=== PATIENT | female | born 1930 | race Caucasian/White ===

== ENCOUNTER 2016-11-17 18:30 | Inpatient (IN) | payer OTHER, MEDICARE ==
[~2016-11-17] VITALS: Ht 162.6 cm; Wt 97.9 kg
[2016-11-17 18:47] VITALS: BP 152/70; PULSE 88; RESP 20; TEMP 98; O2SAT 94
[2016-11-17 18:49] VITALS: O2SAT 95
[2016-11-17] MEDS ORDERED: SODIUM CHLORIDE 0.9% FLUSH 10 ML FLUSH IVF PRN (19:00)
--- NOTE | 2016-11-17 19:22 | PD ---
HPI Chief Complaint: Fall Time Seen by Provider: 19:08 Travel History International Travel<30 days: No Contact w/Intl Traveler<30days: No Traveled to known affect area: No History of Present Illness HPI 86-year-old female came to the emergency room brought by EMS from an assisted living facility after experiencing a fall and unable to get up and ambulate because of left hip pain and deformity few hours ago. Patient doesn't seem to remember this or know what happened. Her son is here with her. He gave some of the additional history. Patient is awake however and hemodynamically stable. List of her medications was reviewed from the paperwork that was sent from the assisted living facility. [facility] Past Medical History Narrative Medical List of her past medical, surgical, social and family history was nursing note. Social History Tobacco Use: No Allergies-Medications (Allergen,Severity, Reaction): Coded Allergies: No Known Allergies (Unverified , 11/17/16) Comments Awaiting for the nurse to update the allergy list Reported Meds & Prescriptions Reported Meds & Active Scripts Active Reported Calcium 600+D 200 (Calcium Carbonate-Vitamin D) 600-200 Mg-Unit Tab 1 Tab PO BID Citalopram (Citalopram Hydrobromide) 20 Mg Tab 20 Mg PO DAILY Fluticasone Nasal [place] 50 Mcg/Act Naspr 50 Mcg EACH NARE BID 50 mcg/spray Memantine 10 Mg Tab 10 Mg PO BID Donepezil 10 Mg Tab 10 Mg PO HS Narrative Medication I reviewed the list of the medications sent from the assisted care facility. Awaiting for the nurse to do medical reconciliation. Review of Systems Except as stated in HPI: all other systems reviewed are Neg Physical Exam Narrative GENERAL: Awake, alert, elderly, dementia SKIN: Focused skin assessment warm/dry. HEAD: Atraumatic. Normocephalic. EYES: Left pupil is round and 1 mm nonreactive to light, right pupil is 3 mm and oval reactive to light. There is a lens glare to the light present from both pupils. Good finger counting from both eyes. No scleral icterus. No injection or drainage. ENT: No nasal bleeding or discharge. Mucous membranes pink and moist. NECK: Trachea midline. No JVD. CARDIOVASCULAR: Regular rate and rhythm. No murmur appreciated. RESPIRATORY: No accessory muscle use. Clear to auscultation. Breath sounds equal bilaterally. GASTROINTESTINAL: Abdomen soft, non-tender, nondistended. Hepatic and splenic margins not palpable. MUSCULOSKELETAL: No obvious deformities. No clubbing. No cyanosis. No edema. Left leg shortened and externally rotated NEUROLOGICAL: Awake and alert. Dementia. No obvious cranial nerve deficits. Motor grossly within normal limits. Normal speech. PSYCHIATRIC: Appropriate mood and affect; insight and judgment normal. Data Data Last Documented VS Vital Signs Date Time Temp Pulse Resp B/P Pulse Ox O2 Delivery O2 Flow Rate FiO2 11/17/16 19:51 94 21 157/72 96 Nasal Cannula 3 11/17/16 18:47 98.0 Orders Electrocardiogram (11/17/16 18:46) Complete Blood Count With Diff (11/17/16 18:46) Comprehensive Metabolic Panel (11/17/16 18:46) Prothrombin Time / Inr (Pt) (11/17/16 18:46) Act Partial Throm Time (Ptt) (11/17/16 18:46) Type And Screen (11/17/16 18:46) Chest, Single Ap (11/17/16 18:46) Femur (Ap & Lat/2vws) (11/17/16 18:46) Hip, Uni(Ap&Lat) W Ap Pelvis (11/17/16 18:46) Iv Access Insert/Monitor (11/17/16 18:46) Oximetry (11/17/16 18:46) Ecg Monitoring (11/17/16 18:46) Sodium Chloride 0.9% Flush (Ns Flush) (11/17/16 19:00) Ct Brain W/O Iv Contrast(Rout) (11/17/16 ) Sodium Chlor 0.9% 1000 Ml Inj (Ns 1000 M (11/17/16 20:03) Admit Order (Ed Use Only) (11/17/16 20:14) Labs Laboratory Tests Test 11/17/16 19:45 White Blood Count 13.2 TH/MM3 Red Blood Count 4.33 MIL/MM3 Hemoglobin 13.8 GM/DL Hematocrit 40.4 % Mean Corpuscular Volume 93.4 FL Mean Corpuscular Hemoglobin 31.9 PG Mean Corpuscular Hemoglobin 34.2 % Concent Red Cell Distribution Width 13.2 % Platelet Count 155 TH/MM3 Mean Platelet Volume 9.9 FL Neutrophils (%) (Auto) 88.0 % Lymphocytes (%) (Auto) 6.8 % Monocytes (%) (Auto) 4.3 % Eosinophils (%) (Auto) 0.6 % Basophils (%) (Auto) 0.3 % Neutrophils # (Auto) 11.6 TH/MM3 Lymphocytes # (Auto) 0.9 TH/MM3 Monocytes # (Auto) 0.6 TH/MM3 Eosinophils # (Auto) 0.1 TH/MM3 Basophils # (Auto) 0.0 TH/MM3 CBC Comment DIFF FINAL Differential Comment Prothrombin Time 11.2 SEC Prothromb Time International 1.0 RATIO Ratio Activated Partial 21.7 SEC Thromboplast Time Sodium Level 141 MEQ/L Potassium Level 3.6 MEQ/L Chloride Level 105 MEQ/L Carbon Dioxide Level 30.7 MEQ/L Anion Gap 5 MEQ/L Blood Urea Nitrogen 22 MG/DL Creatinine 0.79 MG/DL Estimat Glomerular Filtration 69 ML/MIN Rate Random Glucose 108 MG/DL Calcium Level 8.9 MG/DL Total Bilirubin 0.4 MG/DL Aspartate Amino Transf 21 U/L (AST/SGOT) Alanine Aminotransferase 21 U/L (ALT/SGPT) Alkaline Phosphatase 85 U/L Total Protein 7.0 GM/DL Albumin 3.2 GM/DL Blood Type O NEGATIVE Antibody Screen NEGATIVE Blood Bank Comment MDM Medical Decision Making Medical Screen Exam Complete: Yes Emergency Medical Condition: Yes Medical Record Reviewed: Yes Interpretation(s) Twelve-lead EKG was reviewed by me. Normal sinus rhythm, normal axis, nonspecific ST-T wave changes. Heart rate of 87 bpm. Differential Diagnosis Hip fracture, hip dislocation Narrative Course 7:57 PM x-ray of the left hip/femur shows an impacted femoral neck fracture. I spoke with Dr. Steele from orthopedics was the patient to be nothing by mouth after midnight and admit the patient under hospitalist service. Awaiting for the hospitalist to call back. 8:39 PM the x-ray of her chest was commented to have T6 compression fracture of indeterminate age. I rolled the patient with nurses help and palpated her spine. There was no point tenderness. Patient of course was uncomfortable from the movement given her fractured hip but definitely no point tenderness at the T5-T6 area. Her son said that she has had several falls in the past. At one time she had broken her wrist as well in the past. There is a possibility that the compression fracture could be old from one of these falls if there is indeed one. Procedures EKG Prior to Arrival: No Physician Communication Physician Communication Dr. Steele Diagnosis Primary Impression: Fall Qualified Code: W19.XXXA - Fall, initial encounter Additional Impression: Femoral neck fracture Qualified Code: S72.002A - Closed fracture of neck of left femur, initial encounter Admitting Information Admitting Physician Requests: Admit Scripts Calcium Carbonate-Vitamin D (Calcium 600+D 200)600-200 Mg-Unit Tab1 Tab PO BID 30 Days Ref 0 Prov:Denis Venegas 11/18/16 Cholecalciferol (Vitamin D3)2,000 Unit Cap2,000 Units PO DAILY #56 CAP Ref 0 Prov:Denis Venegas 11/18/16 Ergocalciferol 50,000 Unit Cap50,000 Units PO Q7D #56 CAP Prov:Denis Venegas 11/18/16 Rivaroxaban (Xarelto)10 Mg Tab10 Mg PO DAILY #14 TAB Ref 0 Prov:Denis Venegas 11/18/16 Hydrocodone-Acetaminophen ([place])7.5-325 mg Tab1 Tab PO Q4H PRN (PAIN) #60 TAB Ref 0 Prov:Denis Venegas 11/18/16 Pema Keane MD Nov 17, 2016 19:22
--- NOTE | 2016-11-17 19:30 | RADRPT ---
EXAM DATE/TIME: 11/17/2016 19:07 [facility] COMPARISON: No previous studies available for comparison. INDICATIONS : Trauma. Fall today. MEDICAL HISTORY : None. SURGICAL HISTORY : None. ENCOUNTER: Initial ACUITY: 1 day PAIN SCORE: Non-responsive. LOCATION: Bilateral chest FINDINGS: Lungs are clear. There is loss of vertebral body height at the expected location of T6, age indetermi anne. Aortic calcification. Borderline cardiomegaly. CONCLUSION: Presumed T6 compression deformity, age-indeterminate. Usman Fuentes MD on November 17, 2016 at 19:28 Board Certified Radiologist. This report was verified electronically.
--- NOTE | 2016-11-17 19:32 | RADRPT ---
EXAM DATE/TIME: 11/17/2016 19:02 [facility] COMPARISON: FEMUR LEFT (AP & LAT/2VWS), November 17, 2016, 19:05. INDICATIONS : Left hip pain after fall. MEDICAL HISTORY : None. SURGICAL HISTORY : None. ENCOUNTER: Initial ACUITY: 1 day PAIN SCORE: 10/10 LOCATION: Left hip. FINDINGS: The patient has decreased bone mineralization. There is a mildly displaced fracture through the left subcapital femoral neck. No other fractures are seen. CONCLUSION: Left proximal femur fracture. Usman Fuentes MD on November 17, 2016 at 19:29 Board Certified Radiologist. This report was verified electronically.
--- NOTE | 2016-11-17 19:36 | RADRPT ---
EXAM DATE/TIME: 11/17/2016 19:05 [facility] COMPARISON: HIP LEFT (AP&LAT 2/3VWS) W AP PELVIS, November 17, 2016, 19:02. INDICATIONS : Left hip pain after fall. MEDICAL HISTORY : None. SURGICAL HISTORY : None. ENCOUNTER: Initial ACUITY: 1 day PAIN SCORE: 10/10 LOCATION: Left hip. FINDINGS: There is a fracture of the left subcapital femoral neck. Femoral head osteophyte formation is seen. D ecreased bone density. CONCLUSION: Left femoral neck fracture. Usman Fuentes MD on November 17, 2016 at 19:34 Board Certified Radiologist. This report was verified electronically.
--- NOTE | 2016-11-17 19:39 | RADRPT ---
EXAM DATE/TIME: 11/17/2016 19:21 [facility] COMPARISON: No previous studies available for comparison. INDICATIONS : Trauma. Fall. RADIATION DOSE: 62.61 CTDIvol (mGy) MEDICAL HISTORY : None SURGICAL HISTORY : None. ENCOUNTER: Initial ACUITY: 1 day PAIN SCALE: 0/10 LOCATION: cranial TECHNIQUE: Multiple contiguous axial images were obtained of the head. Using automated exposure control and adj ustment of the mA and/or kV according to patient size, radiation dose was kept as low as reasonably a chievable to obtain optimal diagnostic quality images. FINDINGS: There is mild atrophy and moderate patchy white matter disease most likely related to chronic microva scular ischemic disease. No signs of acute infarct, hemorrhage or mass. No fractures. CONCLUSION: No acute disease. Usman Fuentes MD on November 17, 2016 at 19:37 Board Certified Radiologist. This report was verified electronically.
[2016-11-17 19:51] VITALS: BP 157/72; PULSE 94; RESP 21; O2SAT 96
[2016-11-17] MEDS ORDERED: SODIUM CHLOR 0.9% 1000 ML INJ 1,000 ML IV SCH (20:03)
[2016-11-17 20:28] LABS: AUTOMATED NEUTROPHIL # 11.6 TH/MM3 (1.8-7.7); BASOPHIL % 0.3 % (0.0-2.0); EOSINOPHIL # 0.1 TH/MM3 (0-0.4); EOSINOPHIL % 0.6 % (0.0-4.0); HEMATOCRIT 40.4 % (35.0-46.0); HEMO FLAGS DIFF FINAL; LYMPH % 6.8 % (9.0-44.0); LYMPHOCYTE # 0.9 TH/MM3 (1.0-4.8); MEAN CELL VOLUME 93.4 FL (80.0-100.0); MEAN CORPUSCULAR HEMOGLOBIN 31.9 PG (27.0-34.0); MEAN CORPUSCULAR HGB CONC 34.2 % (32.0-36.0); MONO % 4.3 % (0.0-8.0); PLATELET COUNT 155 TH/MM3 (150-450); RED BLOOD COUNT 4.33 MIL/MM3 (4.00-5.30); RED CELL DISTRIBUTION WIDTH 13.2 % (11.6-17.2); WHITE BLOOD COUNT 13.2 TH/MM3 (4.0-11.0)
[2016-11-17] MEDS ORDERED: ONDANSETRON HCL 4 MG/2 ML VIAL IVP PRN (20:30)
[2016-11-17] MEDS ORDERED: SODIUM CHLORIDE 0.9% FLUSH 10 ML FLUSH IV FLUSH PRN (20:30)
[2016-11-17] MEDS ORDERED: NALOXONE HCL 0.4 MG/ML AMP IV PRN (20:30)
[2016-11-17 20:44] LABS: APTT (PATIENT) 21.7 SEC (24.3-30.1); PROTHROMBIN TIME - PATIENT 11.2 SEC (9.8-11.6)
[2016-11-17] MEDS ORDERED: MORPHINE SULFATE 4 MG/ML INJ IV PUSH PRN (20:45)
[2016-11-17 21:04] LABS: ALKALINE PHOSPHATASE 85 U/L (45-117); ALT (GPT) 21 U/L (10-53); ANION GAP 5 MEQ/L (5-15); AST (GOT) 21 U/L (15-37); BICARBONATE 30.7 MEQ/L (21.0-32.0); BLOOD UREA NITROGEN 22 MG/DL (7-18); CHLORIDE 105 MEQ/L (98-107); GLOMERULAR FILTRATION RATE 69 ML/MIN (>89); POTASSIUM 3.6 MEQ/L (3.5-5.1); SODIUM (NA) 141 MEQ/L (136-145); TOTAL BILIRUBIN ADULT 0.4 MG/DL (0.2-1.0)
[2016-11-17] MEDS ORDERED: FLUT50SP EACH NARE (21:05)
[2016-11-17] MEDS ORDERED: MEMA1TAB2 PO (21:05)
[2016-11-17] MEDS ORDERED: DONE10TA7 PO (21:05)
[2016-11-17] MEDS ORDERED: CALCTAB19 PO (21:05)
[2016-11-17] MEDS ORDERED: CITA20TA4 PO (21:05)
[2016-11-17] MEDS: SODIUM CHLORIDE 0.9% FLUSH 10 ML FLUSH IV FLUSH SCH (21:06)
--- NOTE | 2016-11-17 21:39 | HHI.HP ---
[facility] Stefanie Eng MD Admission Diagnosis fall, hip fracture Diagnoses: Chief Complaint: unable to stand or weight bear after a fall Travel History International Travel<30 Days: No Contact w/Intl Traveler <30 Da: No Traveled to Known Affected Are: No History of Present Illness This is an 86 year old female patient with past medical history which includes dementia and depression currently living at [facility]. Patient is a poor historian, therefore information gathered from patient as well as prior charting. At first patient unable to tell us why she is at the hospital. When asked if patient fell she responds with, "probably." Then patient able to recall some details of the fall. Patient reports she fell walking out of bathroom landed on Left side. Patient denies head trauma or LOC. Patient also denies dizziness , feeling light headed, palliations, chest pain or shortness of breath prior to the fall. Patient reports that she must have just fallen down. Patient now complaints of pain located left thigh that comes and goes. The pain is worse with movement, per ER report patient was unable to bear weight after the fall secondary to the pain. Patient reports pain is better after pain medication given in ER. Review of Systems ROS Limitations: Poor Historian Except as stated in HPI: all other systems reviewed are Neg Past Family Social History Past Medical History Dementia and depression Past Surgical History Denies prior surgical intervention Reported Medications Calcium 600+D 200 (Calcium Carbonate-Vitamin D) 600-200 Mg-Unit Tab 1 Tab PO BID Citalopram (Citalopram Hydrobromide) 20 Mg Tab 20 Mg PO DAILY Fluticasone Nasal [place] 50 Mcg/Act Naspr 50 Mcg EACH NARE BID 50 mcg/spray Memantine 10 Mg Tab 10 Mg PO BID Donepezil 10 Mg Tab 10 Mg PO HS Allergies: Coded Allergies: No Known Allergies (Unverified , 11/17/16) Active Ordered Medications Current Medications Medications (Trade) Dose Ordered Sig/Claudette Route Start Time Stop Time Status Last Admin (NS Flush) 2 ml UNSCH PRN IV FLUSH 11/17/16 20:30 (NS Flush) 2 ml BID IV FLUSH 11/17/16 21:00 11/17/16 21:06 (Zofran Inj) 4 mg Q6H PRN IVP 11/17/16 20:30 (Narcan Inj) 0.4 mg UNSCH PRN IV 11/17/16 20:30 (Morphine Inj) 2 mg Q3H PRN IV PUSH 11/17/16 20:45 Family History family denies family medical history including CAD, [place], DM or CVA Social History quit smoking, "years ago" denies ETOH use or illict drug use Currently living in an [facility] Physical Exam Vital Signs Vital Signs Date Time Temp Pulse Resp B/P Pulse Ox O2 Delivery O2 Flow Rate FiO2 11/17/16 19:51 94 21 157/72 96 Nasal Cannula 3 11/17/16 18:49 95 Nasal Cannula 2 11/17/16 18:49 86 20 94 Nasal Cannula 2 11/17/16 18:47 98.0 88 20 152/70 94 Physical Exam GENERAL: This is a well-nourished, well-developed patient, in no apparent distress- is however a poor historian SKIN: No rashes, ecchymoses or lesions. Cool and dry. HEAD: Atraumatic. Normocephalic. No temporal or scalp tenderness. EYES: Extraocular motions intact. No scleral icterus. No injection or drainage. CARDIOVASCULAR: Regular rate and rhythm without murmurs, gallops, or rubs. RESPIRATORY: Clear to auscultation. Breath sounds equal bilaterally. No wheezes , rales, or rhonchi. GASTROINTESTINAL: Abdomen soft, non-tender, nondistended. No hepato-splenomegaly , or palpable masses. No guarding. MUSCULOSKELETAL: No calf tenderness. Negative Homans sign bilaterally. Left lower extremity shortened and externally rotated NEUROLOGICAL: Awake and alert- is however a poor historian, pleasantly confused. 4 out of 5 muscle strength in all muscle groups, with the exception of left lower extremity limited secondary to pain. Normal speech. Laboratory Laboratory Tests Test 11/17/16 19:45 White Blood Count 13.2 Red Blood Count 4.33 Hemoglobin 13.8 Hematocrit 40.4 Mean Corpuscular Volume 93.4 Mean Corpuscular Hemoglobin 31.9 Mean Corpuscular Hemoglobin 34.2 Concent Red Cell Distribution Width 13.2 Platelet Count 155 Mean Platelet Volume 9.9 Neutrophils (%) (Auto) 88.0 Lymphocytes (%) (Auto) 6.8 Monocytes (%) (Auto) 4.3 Eosinophils (%) (Auto) 0.6 Basophils (%) (Auto) 0.3 Neutrophils # (Auto) 11.6 Lymphocytes # (Auto) 0.9 Monocytes # (Auto) 0.6 Eosinophils # (Auto) 0.1 Basophils # (Auto) 0.0 CBC Comment DIFF FINAL Differential Comment Prothrombin Time 11.2 Prothromb Time International 1.0 Ratio Activated Partial 21.7 Thromboplast Time Sodium Level 141 Potassium Level 3.6 Chloride Level 105 Carbon Dioxide Level 30.7 Anion Gap 5 Blood Urea Nitrogen 22 Creatinine 0.79 Estimat Glomerular Filtration 69 Rate Random Glucose 108 Calcium Level 8.9 Total Bilirubin 0.4 Aspartate Amino Transf 21 (AST/SGOT) Alanine Aminotransferase 21 (ALT/SGPT) Alkaline Phosphatase 85 Total Protein 7.0 Albumin 3.2 Blood Type O NEGATIVE Antibody Screen NEGATIVE Blood Bank Comment Result Diagram: 11/17/16194411/17/161944 Imaging Last Impressions Hip and Pelvis X-Ray 11/17/161845 Signed Impressions: Service Date/Time: Thursday, November 17, 2016 19:02 - CONCLUSION: Left proximal femur fracture. Usman Fuentes MD Femur X-Ray 11/17/161845 Signed Impressions: Service Date/Time: Thursday, November 17, 2016 19:05 - CONCLUSION: Left femoral neck fracture. Usman Fuentes MD Chest X-Ray 11/17/161845 Signed Impressions: Service Date/Time: Thursday, November 17, 2016 19:07 - CONCLUSION: Presumed T6 compression deformity, age-indeterminate. Usman Fuentes MD Head CT 11/17/16 0000 Signed Impressions: Service Date/Time: Thursday, November 17, 2016 19:21 - CONCLUSION: No acute disease. Usman Fuentes MD Assessment and Plan Problem List: (1) Fall ICD Code: W19.XXXA Status: Acute (2) Femoral neck fracture ICD Code: S72.009A Status: Acute (3) Dementia ICD Code: F03.90 Status: Chronic Assessment and Plan This is an 86 year old female patient with past medical history which includes dementia and depression currently living at [facility]. Patient is a poor historian, therefore information gathered from patient as well as prior charting. At first patient unable to tell us why she is at the hospital. When asked if patient fell she responds with, "probably." L femoral neck fracture- acute S/P mechanical fall NPO after midnight plan for surgical intervention in AM, NS at 75 ml/H consult orthopedic surgery- ER provider spoke to Dr. Steele pain control Morphine 2 mg IV PRN pain >5 Dementia- chronic continue Memantine and donepezil T6 compression fracture- age indeterminate chest x-ray reveals presumed T6 compression fracture of indeterminate age. There was no point tenderness. Per ER documentation patient's son said that she has had several falls in the past. There is a possibility that the compression fracture could be old. DVT prophylaxis SCD's at this time- plan surgical intervention on AM Discussed with ER provider, nursing and patient Written by Mouna Yu, acting as scribe for Dr. Mccauley on 11/17/16 at 22: 39. This note was transcribed by scribe [ Mouna Yu]. I, Dr. Santana Mccauley personally performed the history, physical exam, and medical decision making; and confirmed the accuracy of the information in the transcribed note. Authenticated by Dr. Santana Mccauley on11/17/16 at 22:39. Physician Certification 2 Midnight Certification Type: Admission for Inpatient Services Order for Inpatient Services The services are ordered in accordance with Medicare regulations or non- Medicare payer requirements, as applicable. In the case of services not specified as inpatient-only, they are appropriately provided as inpatient services in accordance with the 2-midnight benchmark. Estimated LOS (days): 3 days is the estimated time the patient will need to remain in the hospital, assuming treatment plan goals are met and no additional complications. Post-Hospital Plan: Not yet determined Problem Qualifiers (1) Fall: Qualified Code: W19.XXXA - Fall, initial encounter (2) Femoral neck fracture: Qualified Code: S72.002A - Closed fracture of neck of left femur, initial encounter Mouna Yu Nov 17, 2016 21:39 Santana Mccauley MD Nov 18, 2016 06:54
[2016-11-17] MEDS ORDERED: POVIDONE IODINE 5% (ANTISEPSIS KIT) 4 APPLICATIONS EACH NARE PRN (23:45)
[2016-11-17] MEDS ORDERED: CHLORHEXIDINE GLUCONATE 2 % 1 PACK (2 CLOTHS) TOPICAL PRN (23:45)
[2016-11-17] MEDS ORDERED: SODIUM CHLORID 0.9% 500 ML IV PRN (23:45)
[2016-11-17] MEDS ORDERED: LACTATED RINGER'S 1000 ML IV PRN (23:45)
[2016-11-17] MEDS ORDERED: INSULIN HUMAN REGULAR 1,000 UNITS/10 ML VIAL SQ PRN (23:45)
--- NOTE | 2016-11-17 23:49 | PD.CONS ---
cc: Reji Steele MD HPI Service Orthopedic Surgeons Consult Requested By ED staff Reason for Consult Left hip fracture Primary Care Physician Stefanie Eng MD Admission Diagnosis fall, hip fracture Diagnoses: (1) Displaced fracture of left femoral neck (2) Fall (3) Dementia Chief Complaint: Left hip pain History of Present Illness This is an 86 year old female patient with past medical history which includes dementia and depression currently living at [facility]. Patient is a poor historian, therefore information gathered from patient as well as prior charting. At first patient unable to tell us why she is at the hospital. When asked what hurts she does point to her left hip. She denies other areas of pain. Then patient able to recall some details of the fall. Patient reports she fell walking out of bathroom landed on Left side. Patient denies head trauma or LOC. Patient also denies dizziness, feeling light headed, palliations, chest pain or shortness of breath prior to the fall. Patient now complaints of pain located left thigh that comes and goes. The pain is worse with movement, per ER report patient was unable to bear weight after the fall secondary to the pain. X-rays in the emergency department revealed a displaced left femoral neck fracture. She was admitted to the medical service with orthopedic consultation requested. Review of Systems Reviewed and well outlined in the medical record Past Family Social History Past Medical History Dementia and depression Past Surgical History Denies prior surgical intervention Allergies: Coded Allergies: No Known Allergies (Unverified , 11/17/16) Active Ordered Medications Current Medications Medications (Trade) Dose Ordered Sig/Claudette Route Start Time Stop Time Status Last Admin (NS Flush) 2 ml UNSCH PRN IV FLUSH 11/17/16 20:30 (NS Flush) 2 ml BID IV FLUSH 11/17/16 21:00 11/17/16 21:06 (Zofran Inj) 4 mg Q6H PRN IVP 11/17/16 20:30 (Narcan Inj) 0.4 mg UNSCH PRN IV 11/17/16 20:30 (Morphine Inj) 2 mg Q3H PRN IV PUSH 11/17/16 20:45 (CeleXA) 20 mg DAILY PO 11/18/16 09:00 (Aricept) 10 mg HS PO 11/18/16 21:00 (Namenda) 10 mg BID PO 11/18/16 09:00 ([place]) 500 mg BID PO 11/18/16 09:00 Reported Meds & Active Scripts Active Reported Calcium 600+D 200 (Calcium Carbonate-Vitamin D) 600-200 Mg-Unit Tab 1 Tab PO BID Citalopram (Citalopram Hydrobromide) 20 Mg Tab 20 Mg PO DAILY Fluticasone Nasal [place] 50 Mcg/Act Naspr 50 Mcg EACH NARE BID 50 mcg/spray Memantine 10 Mg Tab 10 Mg PO BID Donepezil 10 Mg Tab 10 Mg PO HS Family History family denies family medical history including CAD, [place], DM or CVA Social History quit smoking, "years ago" denies ETOH use or illict drug use Currently living in an [facility] Physical Exam Vital Signs Vital Signs Date Time Temp Pulse Resp B/P Pulse Ox O2 Delivery O2 Flow Rate FiO2 11/17/16 19:51 94 21 157/72 96 Nasal Cannula 3 11/17/16 18:49 95 Nasal Cannula 2 11/17/16 18:49 86 20 94 Nasal Cannula 2 11/17/16 18:47 98.0 88 20 152/70 94 Physical Exam The patient is awake and alert and mildly confused. She does acknowledge left hip pain. The left lower extremity is shortened and externally rotated. There is pain with any attempted range of motion. She is able to move the toes and ankle on the left freely without pain. There is no calf swelling. There are no other localizing signs of extremity injury. Laboratory Laboratory Tests Test 11/17/16 19:45 White Blood Count 13.2 Red Blood Count 4.33 Hemoglobin 13.8 Hematocrit 40.4 Mean Corpuscular Volume 93.4 Mean Corpuscular Hemoglobin 31.9 Mean Corpuscular Hemoglobin 34.2 Concent Red Cell Distribution Width 13.2 Platelet Count 155 Mean Platelet Volume 9.9 Neutrophils (%) (Auto) 88.0 Lymphocytes (%) (Auto) 6.8 Monocytes (%) (Auto) 4.3 Eosinophils (%) (Auto) 0.6 Basophils (%) (Auto) 0.3 Neutrophils # (Auto) 11.6 Lymphocytes # (Auto) 0.9 Monocytes # (Auto) 0.6 Eosinophils # (Auto) 0.1 Basophils # (Auto) 0.0 CBC Comment DIFF FINAL Differential Comment Prothrombin Time 11.2 Prothromb Time International 1.0 Ratio Activated Partial 21.7 Thromboplast Time Sodium Level 141 Potassium Level 3.6 Chloride Level 105 Carbon Dioxide Level 30.7 Anion Gap 5 Blood Urea Nitrogen 22 Creatinine 0.79 Estimat Glomerular Filtration 69 Rate Random Glucose 108 Calcium Level 8.9 Total Bilirubin 0.4 Aspartate Amino Transf 21 (AST/SGOT) Alanine Aminotransferase 21 (ALT/SGPT) Alkaline Phosphatase 85 Total Protein 7.0 Albumin 3.2 Blood Type O NEGATIVE Antibody Screen NEGATIVE Blood Bank Comment Result Diagram: 11/17/16194411/17/161944 Imaging Last 48 hours Impressions Hip and Pelvis X-Ray 11/17/161845 Signed Impressions: Service Date/Time: Thursday, November 17, 2016 19:02 - CONCLUSION: Left proximal femur fracture. Usman Fuentes MD Femur X-Ray 11/17/161845 Signed Impressions: Service Date/Time: Thursday, November 17, 2016 19:05 - CONCLUSION: Left femoral neck fracture. Usman Fuentes MD Chest X-Ray 11/17/161845 Signed Impressions: Service Date/Time: Thursday, November 17, 2016 19:07 - CONCLUSION: Presumed T6 compression deformity, age-indeterminate. Usman Fuentes MD Head CT 11/17/16 0000 Signed Impressions: Service Date/Time: Thursday, November 17, 2016 19:21 - CONCLUSION: No acute disease. Usman Fuentes MD Assessment & Plan Problem List: (1) Displaced fracture of left femoral neck (2) Dementia Assessment and Plan The findings were discussed. Recommendations are for prosthetic replacement based upon the displaced nature of the femoral neck fracture. The nature of the procedure, risks, benefits and postoperative expectations were discussed with her. She does acknowledge understanding although given her history of dementia will require outside consent. The possibility of my associates taking over her care was discussed. Reji Steele MD Nov 17, 2016 23:49
[2016-11-18] VITALS: BP 184/73; PULSE 98; RESP 20; TEMP 97.3; O2SAT 95
[2016-11-18 01:41] LABS: BACTERIA, URINE RARE /hpf; BLOOD, URINE NEG (NEG); GLUCOSE,URINE NEG (NEG); KETONE, URINE 10 mg/dL (NEG); MUCUS URINE FEW /lpf (OCC); NITRITE,URINE NEG (NEG); PH, URINE 7.5 (5.0-8.5); SQUAMOUS EPITHELIAL CELL URINE <1 /hpf (0-5); URINE COLOR YELLOW (YELLW/STRAW)
[2016-11-18 02:17] LABS: COMMENT (UR) CATH-CULTURE IND; CULTURE IF INDICATED CATH CULTURE IND
[2016-11-18 04:45] VITALS: BP 165/76; PULSE 87; RESP 19; TEMP 97.5; O2SAT 94
--- NOTE | 2016-11-18 06:42 | PD.ORT.PN ---
Subjective Subjective Remarks s/p fall at home. left hip pain. no other complaints. Objective Vitals Vital Signs Date Time Temp Pulse Resp B/P Pulse Ox O2 Delivery O2 Flow Rate FiO2 11/18/16 04:45 97.5 87 19 165/76 94 11/18/16 00:00 97.3 98 20 184/73 95 11/17/16 19:51 94 21 157/72 96 Nasal Cannula 3 11/17/16 18:49 95 Nasal Cannula 2 11/17/16 18:49 86 20 94 Nasal Cannula 2 11/17/16 18:47 98.0 88 20 152/70 94 I/O 11/17/16 11/17/16 11/17/16 11/18/16 11/18/16 11/18/16 07:00 15:00 23:00 07:00 15:00 23:00 Intake Total 0 ml Output Total 215 ml Balance -215 ml Intake Oral 0 ml Output Urine Total 215 ml # Voids 1 1 # Bowel Movements 0 0 Result Diagram: 11/17/16194411/17/161944 Other Results Laboratory Tests Test 11/17/16 19:45 Prothrombin Time 11.2 SEC (9.8-11.6) Prothromb Time International 1.0 RATIO Ratio Imaging Last 24 hours Impressions Hip and Pelvis X-Ray 11/17/161845 Signed Impressions: Service Date/Time: Thursday, November 17, 2016 19:02 - CONCLUSION: Left proximal femur fracture. Usman Fuentes MD Femur X-Ray 11/17/161845 Signed Impressions: Service Date/Time: Thursday, November 17, 2016 19:05 - CONCLUSION: Left femoral neck fracture. Usman Fuentes MD Chest X-Ray 11/17/161845 Signed Impressions: Service Date/Time: Thursday, November 17, 2016 19:07 - CONCLUSION: Presumed T6 compression deformity, age-indeterminate. Usman Fuentes MD Objective Remarks LLE: +bucks traction. NVI. no pain in knee or ankle. pain with internal rotation of hip Assessment & Plan Problem List: (1) Displaced fracture of left femoral neck (2) Dementia Assessment and Plan 1) Left Femoral Neck Fx -consents -surgery today for bipolar hemiarthroplasty Denis Venegas Nov 18, 2016 06:42
[2016-11-18] MEDS ORDERED: ERGO1CAP30 PO (06:44)
[2016-11-18] MEDS ORDERED: WALKER/ADULT/FO1 MIS (06:44)
[2016-11-18] MEDS ORDERED: CALCTAB19 PO (06:44)
[2016-11-18] MEDS ORDERED: HYDR-3288 PO (06:44)
[2016-11-18] MEDS ORDERED: XARE10TA PO (06:44)
[2016-11-18] MEDS ORDERED: VITA2000 PO (06:44)
[2016-11-18 06:58] LABS: AUTOMATED NEUTROPHIL # 8.6 TH/MM3 (1.8-7.7); BASOPHIL % 0.3 % (0.0-2.0); EOSINOPHIL # 0.2 TH/MM3 (0-0.4); EOSINOPHIL % 1.9 % (0.0-4.0); HEMATOCRIT 40.9 % (35.0-46.0); HEMO FLAGS DIFF FINAL; LYMPH % 9.8 % (9.0-44.0); MEAN CELL VOLUME 95.4 FL (80.0-100.0); MEAN CORPUSCULAR HEMOGLOBIN 31.3 PG (27.0-34.0); MEAN CORPUSCULAR HGB CONC 32.8 % (32.0-36.0); MONO % 6.7 % (0.0-8.0); NEUT % 81.3 % (16.0-70.0); PLATELET COUNT 134 TH/MM3 (150-450); RED BLOOD COUNT 4.29 MIL/MM3 (4.00-5.30); RED CELL DISTRIBUTION WIDTH 13.4 % (11.6-17.2); WHITE BLOOD COUNT 10.5 TH/MM3 (4.0-11.0)
[2016-11-18 07:33] LABS: POTASSIUM 3.6 MEQ/L (3.5-5.1)
[2016-11-18 08:00] VITALS: BP 139/91; PULSE 84; RESP 20; TEMP 98.1; O2SAT 92
--- NOTE | 2016-11-18 08:52 | EKG ---
Date Performed: 11/17/2016 Time Performed: 19:47:49 PTAGE: 86 years EKG: Sinus rhythm NONSPECIFIC ST & T-WAVE ABNORMALITY BORDERLINE ECG NO PREVIOUS TRACING DOCTOR: Edgard Osborne Interpretating Date/Time 11/18/2016 08:50:38
[2016-11-18] MEDS: SODIUM CHLORIDE 0.9% FLUSH 10 ML FLUSH IV FLUSH SCH ×2 (09:00→21:00)
[2016-11-18] MEDS: MEMANTINE HCL 10 MG TAB PO SCH ×2 (09:00→21:52)
[2016-11-18] MEDS: CITALOPRAM HYDROBROMIDE 20 MG TAB PO SCH (09:00)
[2016-11-18] MEDS: CALCIUM CARBONATE 1.25 GM (CA 500 MG) TAB PO SCH ×2 (09:00→21:52)
--- NOTE | 2016-11-18 09:24 | HHI.PR ---
Subjective Remarks no complains pain controlled Objective Vitals Vital Signs Date Time Temp Pulse Resp B/P Pulse Ox O2 Delivery O2 Flow Rate FiO2 11/18/16 08:00 98.1 84 20 139/91 92 11/18/16 04:45 97.5 87 19 165/76 94 11/18/16 00:00 97.3 98 20 184/73 95 11/17/16 19:51 94 21 157/72 96 Nasal Cannula 3 11/17/16 18:49 95 Nasal Cannula 2 11/17/16 18:49 86 20 94 Nasal Cannula 2 11/17/16 18:47 98.0 88 20 152/70 94 I/O 11/17/16 11/17/16 11/17/16 11/18/16 11/18/16 11/18/16 07:00 15:00 23:00 07:00 15:00 23:00 Intake Total 0 ml Output Total 215 ml Balance -215 ml Intake Oral 0 ml Output Urine Total 215 ml # Voids 1 1 # Bowel Movements 0 0 Result Diagram: 11/18/16 0550 11/18/16 0550 Imaging Last Impressions Hip and Pelvis X-Ray 11/17/161845 Signed Impressions: Service Date/Time: Thursday, November 17, 2016 19:02 - CONCLUSION: Left proximal femur fracture. Usman Fuentes MD Femur X-Ray 11/17/161845 Signed Impressions: Service Date/Time: Thursday, November 17, 2016 19:05 - CONCLUSION: Left femoral neck fracture. Usman Fuentes MD Chest X-Ray 11/17/161845 Signed Impressions: Service Date/Time: Thursday, November 17, 2016 19:07 - CONCLUSION: Presumed T6 compression deformity, age-indeterminate. Usman Fuentes MD Head CT 11/17/16 0000 Signed Impressions: Service Date/Time: Thursday, November 17, 2016 19:21 - CONCLUSION: No acute disease. Usman Fuentes MD Objective Remarks awake and alert,oriented x 3 anicteric lungs clear regular rhythm abdomen soft, nontender right LE- traction in place, moves toes freely Urinary Catheter: Yes Assessment to: Continue Eagel insert reason: Prolonged Immobilization Date of Insertion: Nov 17, 2016 A/P Problem List: (1) Displaced fracture of left femoral neck ICD Code: S72.002A Status: Acute (2) Fall ICD Code: W19.XXXA Status: Acute (3) Dementia ICD Code: F03.90 Status: Chronic Assessment and Plan This is an 86 year old female patient with past medical history which includes dementia and depression currently living at [facility]. Patient is a poor historian, therefore information gathered from patient as well as prior charting. At first patient unable to tell us why she is at the hospital. When asked if patient fell she responds with, "probably." L femoral neck fracture- acute S/P mechanical fall for surgery today- Dr. Steele ff pain control Morphine 2 mg IV PRN pain >5 Dementia- chronic- a x xo x 3 today continue Memantine and donepezil T6 compression fracture- age indeterminate chest x-ray reveals presumed T6 compression fracture of indeterminate age. There was no point tenderness. Per ER documentation patient's son said that she has had several falls in the past. There is a possibility that the compression fracture could be old. DVT prophylaxis per Ortho post op Problem Qualifiers (1) Fall: Qualified Code: W19.XXXA - Fall, initial encounter Nirav Segovia MD Nov 18, 2016 09:24
[2016-11-18 12:00] VITALS: BP 136/82; PULSE 92; RESP 20; TEMP 98.4; O2SAT 91
[2016-11-18] MEDS ORDERED: fentaNYL CITRATE 250 MCG/5 ML AMP ONE (12:45)
[2016-11-18] MEDS ORDERED: GENTAMICIN SULFATE 80 MG/2 ML VIAL ONE ×2 (13:10)
[2016-11-18] MEDS ORDERED: NEOSTIGMINE 3 MG/3 ML SYR IV ONE (13:19)
[2016-11-18] MEDS ORDERED: PROPOFOL 200 MG/20 ML AMP IV ONE (13:19)
[2016-11-18] MEDS ORDERED: ONDANSETRON HCL 4 MG/2 ML VIAL IV PUSH ONE (13:19)
[2016-11-18] MEDS ORDERED: PHENYLEPH/NS 1000 MCG/10 ML SYR IV ONE (13:19)
[2016-11-18] MEDS ORDERED: ePHEDrine/NS 25 MG/5 ML SYR IV ONE (13:19)
[2016-11-18] MEDS ORDERED: LACTATED RINGER'S 1000 ML INJ 1,000 ML IV ONE (13:20)
[2016-11-18] MEDS ORDERED: SODIUM CHLOR 0.9% 250 ML INJ 250 ML ONE (14:03)
[2016-11-18] MEDS ORDERED: VANCOMYCIN HCL 1000 MG VIAL ONE ×2 (14:03→14:15)
[2016-11-18] MEDS ORDERED: ceFAZolin INJ 1,000 MG VIAL ONE (14:03)
[2016-11-18] MEDS ORDERED: TRANEXAMIC ACID INJ 1,020 MG in SODIUM CHLORIDE 0.9% INJ 100 ML IV SCH (14:15)
--- NOTE | 2016-11-18 15:56 | PD.OP ---
cc: Kit Anne MD Operative Report Date of Surgery: Nov 18, 2016 Preoperative Diagnosis: Displaced left femoral neck fracture Postoperative Diagnosis: Procedure: Left hip bipolar hemiarthroplasty Anesthesia: Gen. Surgeon: Kit Anne Freelance Translator(s): Denis Venegas PA-C The surgical procedure was assisted by my physician assistant drafter. My P.A. presence was necessary throughout this case for the manipulation and positioning of the surgical extremity. My P.A. was assisting me throughout the duration of this procedure. The skill set of a physician assistant drafter was medically necessary to complete this procedure. During the surgical case the surgical device sales representative was working at the back table and the physician assistant drafter was directly assisting me. Operation and Findings: PLAN OF ACTIVITY Weight bear as tolerated. IMPLANTS USED DePuy Corail size 14 stem with size [46] bipolar head and [pulse 5] neck. DRAIN: 7 mm Yoshi-Prater drain DETAILS OF PROCEDURE This patient was brought into the operating room and placed on the OR table. The patient was given anesthesia. The patient received IV antibiotics. The patient was then placed in lateral decubitus position. The hip and leg were prepped with alcohol, followed by Hibiclens and draped in a usual sterile fashion. Clean air was used for this procedure. Time out procedure was performed. The procedure began with a 5 inch incision over the posterolateral hip. The subcutaneous tissue was dissected with the Bovie. The iliotibial band were split in line with fibers. The Charnley retractor was placed. The piriformis and external rotators were released from the femur and tagged with a #1 Vicryl suture. The capsule is now incised and tagged with #1 Vicryl. The femoral neck fracture was now visualized. A corkscrew was now used to remove the femoral head. The femoral head was sized and measured. Soft tissue was now protected. The hip skid was placed underneath the femoral neck. An oscillating saw was used to make a femoral neck cut. At this point attention was turned to preparation of the proximal femur. A box osteotome was used to remove the lateral cortex of the femoral neck. The T- handle reamer was used to open the femoral canal. Next, the canal was broached. A lateralizing reamer was used to help lateralize the prosthesis. At this point a trial head and neck were placed. The hip was reduced. The patient was found to have excellent stability with good range of motion. Trial components were removed. Soft tissue and bone were thoroughly irrigated. A Corail stem was now opened. The stem was now impacted into the proximal femur. Care was taken to keep appropriate anteversion. The head and neck were now impacted onto the stem. The hip was again reduced. The hip was found to have good range of motion and good stability. Leg lengths were clinically equal. The wound was thoroughly irrigated. The capsule, piriformis and iliotibial band were closed with #1 Vicryl. Subcutaneous tissue was closed with 3-0 Vicryl. The skin was closed with hilda. A sterile dressing was applied with Primapore. The patient was placed into a knee immobilizer. The patient was awakened and transferred to the recovery room in stable condition. Needle and sponge counts were correct. Kit Anne MD Nov 18, 2016 15:55
[2016-11-18] MEDS ORDERED: SODIUM CHLORIDE 0.9% FLUSH 5 ML FLUSH IVF PRN (16:00)
[2016-11-18] MEDS ORDERED: ERGOCALCIFEROL (VIT D2) 50,000 UNIT CAP PO ONE (16:00)
[2016-11-18] MEDS ORDERED: MORPHINE SULFATE 4 MG/ML INJ IV PUSH PRN (16:00)
[2016-11-18] MEDS ORDERED: ACETAMINOPHEN/HYDROcodone 325 MG/7.5 MG TAB PO PRN (16:00)
[2016-11-18] MEDS ORDERED: Post-op Orders (for Pharmacy) MISC XX ONE (16:00)
[2016-11-18] MEDS ORDERED: DO NOT ADM ANY ANTICOAGULANT DRUGS PRN (16:18)
[2016-11-18] MEDS ORDERED: *MEPERIDINE 25 MG INJ VIAL PERIprocedural Use ONLY ONE (16:26)
--- NOTE | 2016-11-18 17:09 | RADRPT ---
EXAM DATE/TIME: 11/18/2016 16:17 [place] COMPARISON: HIP LEFT (AP&LAT 2/3VWS) W AP PELVIS, November 17, 2016, 19:02. INDICATIONS : Post Op hip replacement. MEDICAL HISTORY : None. SURGICAL HISTORY : Left hip replacement. ENCOUNTER: Initial ACUITY: 1 day PAIN SCORE: 0/10 LOCATION: Left hip FINDINGS: A single AP view of the pelvis was obtained as well as a frog leg lateral view of the left hip. The p atient is status post left hip arthroplasty. The femoral acetabular components are intact and in norm al alignment there is adjacent surgical drain. There is soft tissue swelling and mild osteopenia. CONCLUSION: Second postoperative changes status post left hip arthroplasty. Kev Moses MD on November 18, 2016 at 17:07 Board Certified Radiologist. This report was verified electronically.
[2016-11-18 17:45] VITALS: BP 91/53; PULSE 92; RESP 19; TEMP 97.7; O2SAT 94
[2016-11-18 20:06] VITALS: BP 158/67; PULSE 90; RESP 16; TEMP 97.5; O2SAT 92
[2016-11-18] MEDS: SODIUM CHLORIDE 0.9% FLUSH 5 ML FLUSH IVF SCH (21:00)
[2016-11-18] MEDS: DONEPEZIL HCL 5 MG TAB PO SCH (21:52)
[2016-11-18] MEDS: ceFAZolin 2 GM PREMIX 50 ML IV SCH (21:52)
[2016-11-18] MEDS: ACETAMINOPHEN/HYDROcodone 325 MG/7.5 MG TAB PO PRN (21:53)
[2016-11-19] VITALS (7 sets, daily range): BP systolic 99–122; BP diastolic 53–77; PULSE 74–122; RESP 17–20; TEMP 96.6–98; O2SAT 92–98
[2016-11-19] MEDS: ceFAZolin 2 GM PREMIX 50 ML IV SCH ×2 (02:41→08:14)
--- NOTE | 2016-11-19 06:55 | PD.ORT.PN ---
Subjective Subjective Remarks POD 1 s/p Left hip hemiarthroplasty doing well. pain controlled. not out of bed yet Objective Vitals Vital Signs Date Time Temp Pulse Resp B/P Pulse Ox O2 Delivery O2 Flow Rate FiO2 11/19/16 04:08 97.7 108 17 111/53 92 11/19/16 00:52 98.0 89 17 119/65 92 11/18/16 20:06 97.5 90 16 158/67 92 11/18/16 17:45 97.7 92 19 91/53 94 11/18/16 17:25 92 16 109/68 94 Nasal Cannula 3 11/18/16 17:15 98.2 84 16 102/60 94 Nasal Cannula 3 11/18/16 17:00 85 15 100/63 93 Nasal Cannula 3 11/18/16 16:45 86 15 109/62 92 Nasal Cannula 3 11/18/16 16:30 87 15 113/61 99 Simple Mask 6 11/18/16 16:15 98.2 92 18 118/75 98 Simple Mask 6 11/18/16 13:22 Nasal Cannula 2 11/18/16 12:00 98.4 92 20 136/82 91 11/18/16 08:00 98.1 84 20 139/91 92 I/O 11/18/16 11/18/16 11/18/16 11/19/16 11/19/16 11/19/16 07:00 15:00 23:00 07:00 15:00 23:00 Intake Total 0 ml 1320 ml Output Total 215 ml 820 ml 0 ml Balance -215 ml 500 ml 0 ml Intake Oral 0 ml 120 ml IV Total 100 ml Other 1100 ml Output Urine Total 215 ml 700 ml Drainage Total 20 ml 0 ml Estimated Blood Loss 100 ml # Voids 1 # Bowel Movements 0 0 Result Diagram: 11/18/16 0550 11/18/16 0550 Imaging Last 24 hours Impressions Hip and Pelvis X-Ray 11/17/161845 Signed Impressions: Service Date/Time: Thursday, November 17, 2016 19:02 - CONCLUSION: Left proximal femur fracture. Usman Fuentes MD Femur X-Ray 11/17/161845 Signed Impressions: Service Date/Time: Thursday, November 17, 2016 19:05 - CONCLUSION: Left femoral neck fracture. Usman Fuentes MD Chest X-Ray 11/17/16 1846 Signed Impressions: Service Date/Time: Thursday, November 17, 2016 19:07 - CONCLUSION: Presumed T6 compression deformity, age-indeterminate. Usman Fuentes MD Objective Remarks LLE: dressings clean and dry. intact. NVI. +drain. +knee brace Assessment & Plan Problem List: (1) Displaced fracture of left femoral neck (2) Dementia Assessment and Plan 1) Left Femoral Neck Fx -WBAT -posterior hip precautions -knee brace while in bed -plan for DC of drain POD 2 with dressing change -CM for rehab placement -DVT prophylaxis with lovenox and transition to Xarelto -f/u with Pamela or Petey in 2 weeks Denis Venegas Nov 19, 2016 06:55
[2016-11-19 07:02] LABS: HEMATOCRIT 36.8 % (35.0-46.0); REVIEW FLAG FINAL
[2016-11-19] MEDS: MEMANTINE HCL 10 MG TAB PO SCH ×2 (08:02→19:53)
[2016-11-19] MEDS: CALCIUM CARBONATE 1.25 GM (CA 500 MG) TAB PO SCH ×2 (08:02→19:53)
[2016-11-19] MEDS: CHOLECALCIFEROL (VIT D3) 5000 UNIT CAP PO SCH (08:02)
[2016-11-19] MEDS: CITALOPRAM HYDROBROMIDE 20 MG TAB PO SCH (08:02)
[2016-11-19] MEDS: ACETAMINOPHEN/HYDROcodone 325 MG/7.5 MG TAB PO PRN ×2 (08:03→14:42)
[2016-11-19] MEDS: SODIUM CHLORIDE 0.9% FLUSH 5 ML FLUSH IVF SCH ×2 (08:13→19:53)
[2016-11-19] MEDS: SODIUM CHLORIDE 0.9% FLUSH 10 ML FLUSH IV FLUSH SCH ×2 (08:13→19:53)
--- NOTE | 2016-11-19 08:58 | HHI.PR ---
Subjective Remarks awake and alert, no pain complains very feisty and interactive Objective Vitals Vital Signs Date Time Temp Pulse Resp B/P Pulse Ox O2 Delivery O2 Flow Rate FiO2 11/19/16 04:08 97.7 108 17 111/53 92 11/19/16 00:52 98.0 89 17 119/65 92 11/18/16 20:06 97.5 90 16 158/67 92 11/18/16 17:45 97.7 92 19 91/53 94 11/18/16 17:25 92 16 109/68 94 Nasal Cannula 3 11/18/16 17:15 98.2 84 16 102/60 94 Nasal Cannula 3 11/18/16 17:00 85 15 100/63 93 Nasal Cannula 3 11/18/16 16:45 86 15 109/62 92 Nasal Cannula 3 11/18/16 16:30 87 15 113/61 99 Simple Mask 6 11/18/16 16:15 98.2 92 18 118/75 98 Simple Mask 6 11/18/16 13:22 Nasal Cannula 2 11/18/16 12:00 98.4 92 20 136/82 91 I/O 11/18/16 11/18/16 11/18/16 11/19/16 11/19/16 11/19/16 07:00 15:00 23:00 07:00 15:00 23:00 Intake Total 0 ml 1320 ml 120 ml Output Total 215 ml 820 ml 125 ml Balance -215 ml 500 ml -5 ml Intake Oral 0 ml 120 ml 120 ml IV Total 100 ml Other 1100 ml Output Urine Total 215 ml 700 ml 125 ml Drainage Total 20 ml 0 ml Estimated Blood Loss 100 ml # Voids 1 # Bowel Movements 0 0 0 Result Diagram: 11/19/16 0604 11/18/16 0550 Imaging Last Impressions Hip and Pelvis X-Ray 11/18/16 1553 Signed Impressions: Service Date/Time: Friday, November 18, 2016 16:17 - CONCLUSION: Second postoperative changes status post left hip arthroplasty. Kev Moses MD Femur X-Ray 11/17/161845 Signed Impressions: Service Date/Time: Thursday, November 17, 2016 19:05 - CONCLUSION: Left femoral neck fracture. Usman Fuentes MD Chest X-Ray 11/17/161845 Signed Impressions: Service Date/Time: Thursday, November 17, 2016 19:07 - CONCLUSION: Presumed T6 compression deformity, age-indeterminate. Usman Fuentes MD Head CT 11/17/16 0000 Signed Impressions: Service Date/Time: Thursday, November 17, 2016 19:21 - CONCLUSION: No acute disease. Usman Fuentes MD Objective Remarks awake and alert,oriented x 3 anicteric lungs clear regular rhythm abdomen soft, nontender right LE-dressing in place Procedures 11/18- left hip arthroplasty Urinary Catheter: Yes Assessment to: Continue Eagle insert reason: Surgical/Invasive Proced Date of Insertion: Nov 17, 2016 A/P Problem List: (1) Displaced fracture of left femoral neck ICD Code: S72.002A Status: Acute (2) Fall ICD Code: W19.XXXA Status: Acute (3) Dementia ICD Code: F03.90 Status: Chronic Assessment and Plan This is an 86 year old female patient with past medical history which includes dementia and depression currently living at [facility]. Patient is a poor historian, therefore information gathered from patient as well as prior charting. At first patient unable to tell us why she is at the hospital. When asked if patient fell she responds with, "probably." L femoral neck fracture- acute S/P mechanical fall s/p left hip hemiarthroplasty PT consult/ortho consult Dementia- chronic- a x xo x 3 continue Memantine and donepezil T6 compression fracture- age indeterminate chest x-ray reveals presumed T6 compression fracture of indeterminate age. There was no point tenderness. Per ER documentation patient's son said that she has had several falls in the past. There is a possibility that the compression fracture could be old. on Lovenox Problem Qualifiers (1) Fall: Qualified Code: W19.XXXA - Fall, initial encounter Nirav Segovia MD Nov 19, 2016 08:58
[2016-11-19] MEDS: SODIUM CHLOR 0.9% 1000 ML INJ 1,000 ML IV SCH ×2 (09:00→19:54)
[2016-11-19 14:30] LABS: BICARBONATE 28.4 MEQ/L (21.0-32.0); POTASSIUM 4.2 MEQ/L (3.5-5.1)
[2016-11-19] MEDS: ENOXAPARIN SODIUM 30 MG/0.3 ML SYRINGE SQ SCH (14:43)
[2016-11-19] MEDS: DONEPEZIL HCL 5 MG TAB PO SCH (19:53)
[2016-11-20] VITALS (8 sets, daily range): BP systolic 102–148; BP diastolic 61–75; PULSE 92–103; RESP 16–19; TEMP 97–98; O2SAT 92–99
[2016-11-20] MEDS: ACETAMINOPHEN/HYDROcodone 325 MG/7.5 MG TAB PO PRN ×3 (05:06→17:12)
[2016-11-20] MEDS: CALCIUM CARBONATE 1.25 GM (CA 500 MG) TAB PO SCH ×2 (09:00→20:35)
[2016-11-20] MEDS: CHOLECALCIFEROL (VIT D3) 5000 UNIT CAP PO SCH (09:00)
[2016-11-20] MEDS: SODIUM CHLORIDE 0.9% FLUSH 10 ML FLUSH IV FLUSH SCH ×2 (09:00→20:36)
[2016-11-20] MEDS: SODIUM CHLORIDE 0.9% FLUSH 5 ML FLUSH IVF SCH ×2 (09:00→20:36)
[2016-11-20] MEDS: MEMANTINE HCL 10 MG TAB PO SCH ×2 (09:41→20:35)
[2016-11-20] MEDS: CITALOPRAM HYDROBROMIDE 20 MG TAB PO SCH (09:41)
--- NOTE | 2016-11-20 11:45 | HHI.PR ---
Subjective Remarks awake and alert, interactive, no pain complains good po decrease urine output- straight cath done- 500 cc out Objective Vitals Vital Signs Date Time Temp Pulse Resp B/P Pulse Ox O2 Delivery O2 Flow Rate FiO2 11/20/16 08:00 97.3 103 18 102/71 92 11/20/16 04:37 97.9 100 18 105/63 99 11/20/16 02:47 96 11/20/16 00:25 97.5 102 19 112/75 97 11/19/16 20:38 96.6 96 20 119/64 94 11/19/16 19:10 Nasal Cannula 4.00 11/19/16 15:44 97.2 78 17 109/55 98 11/19/16 12:00 97.2 74 20 99/77 92 I/O 11/19/16 11/19/16 11/19/16 11/20/16 11/20/16 11/20/16 07:00 15:00 23:00 07:00 15:00 23:00 Intake Total 120 ml 737 ml 508 ml 817 ml Output Total 125 ml 100 ml 160 ml 95 ml Balance -5 ml 637 ml 348 ml 722 ml Intake Oral 120 ml 240 ml 120 ml 120 ml IV Total 497 ml 388 ml 697 ml Output Urine Total 125 ml 100 ml 150 ml 75 ml Drainage Total 0 ml 10 ml 20 ml # Bowel Movements 0 0 0 0 Result Diagram: 11/19/16 0604 11/19/16 1359 Imaging Last Impressions Hip and Pelvis X-Ray 11/18/16 1553 Signed Impressions: Service Date/Time: Friday, November 18, 2016 16:17 - CONCLUSION: Second postoperative changes status post left hip arthroplasty. Kev Moses MD Femur X-Ray 11/17/161845 Signed Impressions: Service Date/Time: Thursday, November 17, 2016 19:05 - CONCLUSION: Left femoral neck fracture. Usman Fuentes MD Chest X-Ray 11/17/161845 Signed Impressions: Service Date/Time: Thursday, November 17, 2016 19:07 - CONCLUSION: Presumed T6 compression deformity, age-indeterminate. Usman Fuentes MD Head CT 11/17/16 0000 Signed Impressions: Service Date/Time: Thursday, November 17, 2016 19:21 - CONCLUSION: No acute disease. Usman Fuentes MD Objective Remarks awake and alert,oriented x 3 anicteric lungs clear regular rhythm abdomen soft, nontender right LE-dressing in place moves feet equally Procedures 11/18- left hip arthroplasty Assessment to: Continue Patricio insert reason: Obstruction/Retention Date of Insertion: Nov 20, 2016 A/P Problem List: (1) Displaced fracture of left femoral neck ICD Code: S72.002A Status: Acute (2) Fall ICD Code: W19.XXXA Status: Acute (3) Dementia ICD Code: F03.90 Status: Chronic Assessment and Plan This is an 86 year old female patient with past medical history which includes dementia and depression currently living at [facility]. Patient is a poor historian, therefore information gathered from patient as well as prior charting. At first patient unable to tell us why she is at the hospital. When asked if patient fell she responds with, "probably." L femoral neck fracture- acute S/P mechanical fall s/p left hip hemiarthroplasty PT daily. SNF today Dementia- chronic- a x xo x 3 continue Memantine and donepezil T6 compression fracture- age indeterminate chest x-ray reveals presumed T6 compression fracture of indeterminate age. There was no point tenderness. Per ER documentation patient's son said that she has had several falls in the past. There is a possibility that the compression fracture could be old. Acute post op urinary retention- patricio placed 11/20- voiding trial in SNF- with increase activity SNF today if accepted on Lovenox Problem Qualifiers (1) Fall: Qualified Code: W19.XXXA - Fall, initial encounter Nirav Segovia MD Nov 20, 2016 11:45
--- NOTE | 2016-11-20 12:13 | HHI.DS ---
Discharge Summary Admission Date Nov 17, 2016 at 20:15 Discharge Date: Nov 20, 2016 Admitting Diagnosis fall, hip fracture (1) Displaced fracture of left femoral neck ICD Code: S72.002A Diagnosis: Principal (2) Acute urinary retention ICD Code: R33.8 Diagnosis: Principal (3) Fall ICD Code: W19.XXXA Diagnosis: Principal (4) Dementia ICD Code: F03.90 Diagnosis: Secondary Procedures 11/18- left hip arthroplasty Brief History - From Admission This is an 86 year old female patient with past medical history which includes dementia and depression currently living at [facility]. Patient is a poor historian, therefore information gathered from patient as well as prior charting. At first patient unable to tell us why she is at the hospital. When asked if patient fell she responds with, "probably." Then patient able to recall some details of the fall. Patient reports she fell walking out of bathroom landed on Left side. Patient denies head trauma or LOC. Patient also denies dizziness , feeling light headed, palliations, chest pain or shortness of breath prior to the fall. Patient reports that she must have just fallen down. Patient now complaints of pain located left thigh that comes and goes. The pain is worse with movement, per ER report patient was unable to bear weight after the fall secondary to the pain. Patient reports pain is better after pain medication given in ER. CBC/BMP: 11/19/16 0604 11/19/16 1359 Significant Findings Laboratory Tests Test 11/17/16 11/18/16 11/18/16 11/19/16 19:45 01:06 05:50 13:59 White Blood Count 13.2 TH/MM3 (4.0-11.0) Neutrophils (%) (Auto) 88.0 % 81.3 % (16.0-70.0) (16.0-70.0) Lymphocytes (%) (Auto) 6.8 % (9.0-44.0) Neutrophils # (Auto) 11.6 TH/MM3 8.6 TH/MM3 (1.8-7.7) (1.8-7.7) Lymphocytes # (Auto) 0.9 TH/MM3 (1.0-4.8) Activated Partial 21.7 SEC Thromboplast Time (24.3-30.1) Blood Urea Nitrogen 22 MG/DL (7-18) 20 MG/DL (7-18) 20 MG/DL (7-18) Estimat Glomerular Filtration 69 ML/MIN (>89) 75 ML/MIN (>89) 63 ML/MIN (>89) Rate Random Glucose 108 MG/DL (74-106) Albumin 3.2 GM/DL (3.4-5.0) Urine Turbidity HAZY (CLEAR) Urine Ketones 10 mg/dL (NEG) Urine Bacteria RARE /hpf (NONE) Urine Mucus FEW /lpf (OCC) Platelet Count 134 TH/MM3 (150-450) 25-Hydroxy Vitamin D Total 25.6 ng/ML (30-100) Calcium Level 8.2 MG/DL (8.5-10.1) Imaging Last Impressions Hip and Pelvis X-Ray 11/18/16 1553 Signed Impressions: Service Date/Time: Friday, November 18, 2016 16:17 - CONCLUSION: Second postoperative changes status post left hip arthroplasty. Kev Moses MD Femur X-Ray 11/17/161845 Signed Impressions: Service Date/Time: Thursday, November 17, 2016 19:05 - CONCLUSION: Left femoral neck fracture. Usman Fuentes MD Chest X-Ray 11/17/161845 Signed Impressions: Service Date/Time: Thursday, November 17, 2016 19:07 - CONCLUSION: Presumed T6 compression deformity, age-indeterminate. Usman Fuentes MD Head CT 11/17/16 0000 Signed Impressions: Service Date/Time: Thursday, November 17, 2016 19:21 - CONCLUSION: No acute disease. Usman Fuentes MD PE at Discharge awake and alert,oriented x 3 anicteric lungs clear regular rhythm abdomen soft, nontender right LE-dressing in place moves feet equally Pt update on day of discharge awake and alert, oriented to person place and year comfortable, pain controlled patricio in place - placed 11/20 Hospital Course This is an 86 year old female patient with past medical history which includes dementia and depression currently living at [facility]. Patient is a poor historian, therefore information gathered from patient as well as prior charting. At first patient unable to tell us why she is at the hospital. When asked if patient fell she responds with, "probably." L femoral neck fracture- acute S/P mechanical fall s/p left hip hemiarthroplasty PT daily. SNF today Dementia- chronic- a x xo x 3 continue Memantine and donepezil T6 compression fracture- age indeterminate chest x-ray reveals presumed T6 compression fracture of indeterminate age. There was no point tenderness. Per ER documentation patient's son said that she has had several falls in the past. There is a possibility that the compression fracture could be old. Acute post op urinary retention- patricio placed 11/20- voiding trial in SNF- with increase activity SNF today if accepted Xarelto for DVT prophylaxis on DC - per ortho Pt Condition on Discharge: Stable Discharge Disposition: Discharge to SNF Discharge Time: <= 30 minutes Discharge Instructions DIET: Follow Instructions for: As Tolerated, No Restrictions Speech Therapy-Diet Recommends: Regular Activities you can perform: Full Weight Bearing Activities to Avoid: Strenuous Activity Other Activity Instructions: please do voiding trials in the SNF in 1-2 days Follow up Referrals: Orthopedics - 12/02/16 @ [facility] with Kit Santiago MD New Medications: Calcium Carbonate-Vitamin D (Calcium 600+D 200) 600-200 Mg-Unit Tab 1 TAB PO BID Nutritional Supplement Days 30 Ref 0 TAB Cholecalciferol (Vitamin D3) 2,000 Unit Cap 2000 UNITS PO DAILY Nutritional Supplement #56 Ref 0 CAP Ergocalciferol (Ergocalciferol) 50,000 Unit Cap 00912 UNITS PO Q7D Nutritional Supplement #56 CAP Hydrocodone-Acetaminophen ([place]) 7.5-325 mg Tab 1 TAB PO Q4H PRN PAIN #60 Ref 0 TAB Rivaroxaban (Xarelto) 10 Mg Tab 10 MG PO DAILY Blood Clot Prevention #14 Ref 0 TAB Walker/Adult/Folding (Walker/Adult/Folding) 1 Mis Mis 1 EA .ROUTE DIRECTED #1 Ref 0 EA Nirav Segovia MD Nov 20, 2016 12:13
[2016-11-20] MEDS ORDERED: BISACODYL 10 MG SUPP RECTAL PRN (12:45)
[2016-11-20] MEDS ORDERED: BISA10R RECTAL (13:10)
[2016-11-20] MEDS: ENOXAPARIN SODIUM 30 MG/0.3 ML SYRINGE SQ SCH (14:42)
[2016-11-20] MEDS: DONEPEZIL HCL 5 MG TAB PO SCH (20:36)
== END 2016-11-20 21:08 | DRG 470 ==
LOC: NEPE 18:30 → NEDA 20:15 → N06B 21:45 → N06A 11-19 17:35
PROVIDERS: ADMIT Internal Medicine; ATTEND Internal Medicine
PROC: 0SRS01A Replacement of Left Hip Joint, Femoral Surface with Metal Synthetic Substitute, Uncemented, Open Approach (ICD-10-PCS; principal; 2016-11-18 14:36)
DX: S72.002A Fracture of unspecified part of neck of left femur, initial encounter for closed fracture (principal); M48.54XA Collapsed vertebra, not elsewhere classified, thoracic region, initial encounter for fracture; R29.6 Repeated falls; F03.90 Unspecified dementia, unspecified severity, without behavioral disturbance, psychotic disturbance, mood disturbance, and anxiety; R33.8 Other retention of urine; W19.XXXA Unspecified fall, initial encounter; Y92.099 Unspecified place in other non-institutional residence as the place of occurrence of the external cause; F32.9 Major depressive disorder, single episode, unspecified
CPT/HCPCS: 70450; 71010; 73502; 73552; 80048; 80053; 81001; 82306; 85014; 85018; 85025; 85610; 85730; 86850; 86900; 86901; 87086; 93005; C1776; J0690; J1580; J1650; J2175; J2270; J2370; J2405; J2710; J3010; J3370; J7030; J7050; J7120; L1830

== ENCOUNTER 2016-12-08 18:35 | Inpatient (IN) | payer OTHER, MEDICARE ==
[2016-12-08] VITALS (15 sets, daily range): BP systolic 104–164; BP diastolic 55–87; PULSE 137–153; RESP 18–20; TEMP 97.4; O2SAT 95–100
[~2016-12-08] VITALS: Ht 157.5 cm; Wt 62.0 kg
[~2016-12-08 18:35] MED LIST: BISA10R RECTAL; CALCTAB19 PO; CITA20TA4 PO; DONE10TA7 PO; ERGO1CAP30 PO; FLUT50SP EACH NARE; HYDR-3288 PO; MEMA1TAB2 PO; VITA2000 PO; WALKER/ADULT/FO1 MIS; XARE10TA PO
[2016-12-08] MEDS ORDERED: SODIUM CHLOR 0.9% 1000 ML INJ 1,000 ML IV SCH ×2 (19:11→22:46)
[2016-12-08] MEDS ORDERED: ONDANSETRON HCL 4 MG/2 ML VIAL IVP ONE (19:15)
[2016-12-08] MEDS ORDERED: SODIUM CHLORIDE 0.9% FLUSH 10 ML FLUSH IV FLUSH PRN ×2 (19:15→23:00)
--- NOTE | 2016-12-08 19:21 | PD ---
HPI Chief Complaint: GI Complaint Time Seen by Provider: 19:16 Travel History International Travel<30 days: No Contact w/Intl Traveler<30days: No History of Present Illness HPI Patient is an 86-year-old female sent by her rehabilitation facility for evaluation of nausea and vomiting. Patient has a history of dementia and is a poor historian. Information was gathered from paperwork sent with patient and RN report after she called the rehabilitation facility. Per the rehabilitation facility patient had one episode of nausea and vomiting earlier today and was given Zofran and did not have a recurrence. Family requested patient be brought to the emergency room for evaluation. Family was also wanting patient sent because she is unable to return to her assisted living facility after the rehabilitation is complete for some reason. Patient has no complaints. 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) Social History Alcohol Use: No Tobacco Use: No Substance Use: No Allergies-Medications (Allergen,Severity, Reaction): Coded Allergies: No Known Allergies (Unverified , 12/08/16) Reported Meds & Prescriptions Reported Meds & Active Scripts Active Bisac-Evac Supp (Bisacodyl) 10 Mg Supp 10 Mg RECTAL DAILY PRN 10 Days Calcium 600+D 200 (Calcium Carbonate-Vitamin D) 600-200 Mg-Unit Tab 1 Tab PO BID 30 Days Vitamin D3 (Cholecalciferol) 2,000 Unit Cap 2,000 Units PO DAILY Ergocalciferol 50,000 Unit Cap 50,000 Units PO Q7D Xarelto (Rivaroxaban) 10 Mg Tab 10 Mg PO DAILY [place] (Hydrocodone-Acetaminophen) 7.5-325 mg Tab 1 Tab PO Q4H PRN Walker/Adult/Folding (Device) 1 Mis Mis 1 Ea .ROUTE DIRECTED Reported Calcium 600+D 200 (Calcium Carbonate-Vitamin D) 600-200 Mg-Unit Tab 1 Tab PO BID Citalopram (Citalopram Hydrobromide) 20 Mg Tab 20 Mg PO DAILY Fluticasone Nasal [place] 50 Mcg/Act Naspr 50 Mcg EACH NARE BID 50 mcg/spray Memantine 10 Mg Tab 10 Mg PO BID Donepezil 10 Mg Tab 10 Mg PO HS Review of Systems ROS Limitations: Poor Historian Except as stated in HPI: all other systems reviewed are Neg Physical Exam Exam Limitations: Poor Historian Narrative GENERAL: Well-developed, well-nourished, alert elderly female. Resting comfortably in no acute distress. SKIN: Focused skin assessment warm/dry. HEAD: Atraumatic. Normocephalic. EYES: Pupils equal and round. No scleral icterus. No injection or drainage. ENT: No nasal bleeding or discharge. Mucous membranes pink and moist. NECK: Trachea midline. No JVD. CARDIOVASCULAR: Tachycardic. No murmur appreciated. RESPIRATORY: No accessory muscle use. Clear to auscultation. Breath sounds equal bilaterally. GASTROINTESTINAL: Abdomen soft, tender to palpation in left lower quadrant, no rebound, no guarding, nondistended. Hepatic and splenic margins not palpable. Positive bowel sounds. MUSCULOSKELETAL: No obvious deformities. No clubbing. No cyanosis. No edema. NEUROLOGICAL: Awake and alert, oriented to self only. No obvious cranial nerve deficits. Motor grossly within normal limits. Normal speech. PSYCHIATRIC: Appropriate mood and affect; insight and judgment impaired. Data Data Last Documented VS Vital Signs Date Time Temp Pulse Resp B/P Pulse Ox O2 Delivery O2 Flow Rate FiO2 12/08/16 21:35 145 20 137/74 98 Nasal Cannula 2 12/08/16 19:07 97.4 Orders Complete Blood Count With Diff (12/08/16 19:11) Comprehensive Metabolic Panel (12/08/16 19:11) Lipase (12/08/16 19:11) Lactic Acid (12/08/16 19:11) Prothrombin Time / Inr (Pt) (12/08/16 19:11) Act Partial Throm Time (Ptt) (12/08/16 19:11) Urinalysis - C+S If Indicated (12/08/16 19:11) Iv Access Insert/Monitor (12/08/16 19:11) Ecg Monitoring (12/08/16 19:11) Oximetry (12/08/16 19:11) Ondansetron Inj (Zofran Inj) (12/08/16 19:15) Sodium Chlor 0.9% 1000 Ml Inj (Ns 1000 M (12/08/16 19:11) Sodium Chloride 0.9% Flush (Ns Flush) (12/08/16 19:15) Electrocardiogram (12/08/16 19:11) Cath For Specimen (12/08/16 19:11) Troponin I (12/08/16 19:32) Ckmb (Isoenzyme) Profile (12/08/16 19:32) Diltiazem Inj (Cardizem Inj) (12/08/16 19:45) Chest, Single Ap (12/08/16 ) Sodium Chlor 0.9% 1000 Ml Inj (Ns 1000 M (12/08/16 20:15) Vancomycin Inj (Vancomycin Inj) (12/08/16 20:12) Blood Culture (12/08/16 20:12) Urinary Catheter Insert/Apply (12/08/16 20:14) Piperacil-Tazo 3.375 Gm Premix (Zosyn 3. (12/08/16 20:30) Ct Abd/Pel W/O Iv Contrast (12/08/16 ) Metoprolol Tartrate Inj (Lopressor Inj) (12/08/16 20:45) CKMB (12/08/16 19:20) CKMB% (12/08/16 19:20) Urine Culture (12/08/16 20:25) Metoprolol Tartrate Inj (Lopressor Inj) (12/08/16 22:00) Admit Order (Ed Use Only) (12/08/16 21:53) Labs Laboratory Tests Test 12/08/16 12/08/16 12/08/16 19:20 19:25 20:25 White Blood Count 21.4 TH/MM3 Red Blood Count 5.01 MIL/MM3 Hemoglobin 15.4 GM/DL Hematocrit 45.9 % Mean Corpuscular Volume 91.5 FL Mean Corpuscular Hemoglobin 30.7 PG Mean Corpuscular Hemoglobin 33.6 % Concent Red Cell Distribution Width 13.9 % Platelet Count 311 TH/MM3 Mean Platelet Volume 9.8 FL Neutrophils (%) (Auto) 91.8 % Lymphocytes (%) (Auto) 4.3 % Monocytes (%) (Auto) 3.8 % Eosinophils (%) (Auto) 0.0 % Basophils (%) (Auto) 0.1 % Neutrophils # (Auto) 19.6 TH/MM3 Lymphocytes # (Auto) 0.9 TH/MM3 Monocytes # (Auto) 0.8 TH/MM3 Eosinophils # (Auto) 0.0 TH/MM3 Basophils # (Auto) 0.0 TH/MM3 CBC Comment DIFF FINAL Differential Comment Prothrombin Time 14.1 SEC Prothromb Time International 1.3 RATIO Ratio Activated Partial 23.4 SEC Thromboplast Time Sodium Level 139 MEQ/L Potassium Level 5.9 MEQ/L Chloride Level 100 MEQ/L Carbon Dioxide Level 24.9 MEQ/L Anion Gap 14 MEQ/L Blood Urea Nitrogen 52 MG/DL Creatinine 2.16 MG/DL Estimat Glomerular Filtration 22 ML/MIN Rate Random Glucose 154 MG/DL Calcium Level 9.7 MG/DL Total Bilirubin 0.9 MG/DL Aspartate Amino Transf 649 U/L (AST/SGOT) Alanine Aminotransferase 246 U/L (ALT/SGPT) Alkaline Phosphatase 141 U/L Total Creatine Kinase 271 U/L Creatine Kinase MB 5.1 NG/ML Creatine Kinase MB % 1.9 % Troponin I 0.21 NG/ML Total Protein 8.0 GM/DL Albumin 2.9 GM/DL Lipase 77 U/L Lactic Acid Level 4.0 mmol/L Urine Color YELLOW Urine Turbidity CLOUDY Urine pH 6.0 Urine Specific [place] 1.017 Urine Protein 100 mg/dL Urine Glucose (UA) NEG mg/dL Urine Ketones TRACE mg/dL Urine Occult Blood MOD Urine Nitrite NEG Urine Bilirubin NEG Urine Urobilinogen 4.0 MG/DL Urine Leukocyte Esterase LARGE Urine RBC 26 /hpf Urine WBC /hpf Urine WBC Clumps MOD Urine Bacteria MANY /hpf Urine Hyaline Casts 28 /lpf Urine Mucus MOD /lpf Microscopic Urinalysis Comment CULTURE INDICATED MDM Medical Decision Making Medical Screen Exam Complete: Yes Emergency Medical Condition: Yes Interpretation(s) Last Impressions Chest X-Ray 12/08/16 0000 Signed Impressions: Service Date/Time: Thursday, December 08, 2016 20:24 - CONCLUSION: No acute disease. Brian Chase MD Abdomen/Pelvis CT 12/08/16 0000 Signed Impressions: Service Date/Time: Thursday, December 08, 2016 20:52 - CONCLUSION: 1. Infrarenal abdominal aortic aneurysm measures 3.1 cm. 2. Constipation. 3. No acute inflammatory process. Brian Chase MD Laboratory Tests Test 12/08/16 12/08/16 12/08/16 19:20 19:25 20:25 White Blood Count 21.4 TH/MM3 Red Blood Count 5.01 MIL/MM3 Hemoglobin 15.4 GM/DL Hematocrit 45.9 % Mean Corpuscular Volume 91.5 FL Mean Corpuscular Hemoglobin 30.7 PG Mean Corpuscular Hemoglobin 33.6 % Concent Red Cell Distribution Width 13.9 % Platelet Count 311 TH/MM3 Mean Platelet Volume 9.8 FL Neutrophils (%) (Auto) 91.8 % Lymphocytes (%) (Auto) 4.3 % Monocytes (%) (Auto) 3.8 % Eosinophils (%) (Auto) 0.0 % Basophils (%) (Auto) 0.1 % Neutrophils # (Auto) 19.6 TH/MM3 Lymphocytes # (Auto) 0.9 TH/MM3 Monocytes # (Auto) 0.8 TH/MM3 Eosinophils # (Auto) 0.0 TH/MM3 Basophils # (Auto) 0.0 TH/MM3 CBC Comment DIFF FINAL Differential Comment Prothrombin Time 14.1 SEC Prothromb Time International 1.3 RATIO Ratio Activated Partial 23.4 SEC Thromboplast Time Sodium Level 139 MEQ/L Potassium Level 5.9 MEQ/L Chloride Level 100 MEQ/L Carbon Dioxide Level 24.9 MEQ/L Anion Gap 14 MEQ/L Blood Urea Nitrogen 52 MG/DL Creatinine 2.16 MG/DL Estimat Glomerular Filtration 22 ML/MIN Rate Random Glucose 154 MG/DL Calcium Level 9.7 MG/DL Total Bilirubin 0.9 MG/DL Aspartate Amino Transf 649 U/L (AST/SGOT) Alanine Aminotransferase 246 U/L (ALT/SGPT) Alkaline Phosphatase 141 U/L Total Creatine Kinase 271 U/L Creatine Kinase MB 5.1 NG/ML Creatine Kinase MB % 1.9 % Troponin I 0.21 NG/ML Total Protein 8.0 GM/DL Albumin 2.9 GM/DL Lipase 77 U/L Lactic Acid Level 4.0 mmol/L Urine Color YELLOW Urine Turbidity CLOUDY Urine pH 6.0 Urine Specific [place] 1.017 Urine Protein 100 mg/dL Urine Glucose (UA) NEG mg/dL Urine Ketones TRACE mg/dL Urine Occult Blood MOD Urine Nitrite NEG Urine Bilirubin NEG Urine Urobilinogen 4.0 MG/DL Urine Leukocyte Esterase LARGE Urine RBC 26 /hpf Urine WBC /hpf Urine WBC Clumps MOD Urine Bacteria MANY /hpf Urine Hyaline Casts 28 /lpf Urine Mucus MOD /lpf Microscopic Urinalysis Comment CULTURE INDICATED Vital Signs Date Time Temp Pulse Resp B/P Pulse Ox O2 Delivery O2 Flow Rate FiO2 12/08/16 19:35 97 Nasal Cannula 2 12/08/16 19:07 97.4 148 20 126/67 95 Differential Diagnosis Electrolyte abnormality versus pulmonary embolism versus sepsis versus UTI versus obstruction versus other Narrative Course Patient is an 86-year-old female with a history of dementia presenting to the emergency department from the [facility] after one episode of nausea and vomiting today. On exam patient was moderately tender to palpation left lower quadrant, she is otherwise denying any complaints. When asked she states she is okay. Patient is tachycardic with a heart rate in the 140s, BP is stable. Labs and imaging ordered and pending, IV access established, patient was placed on telemetry monitoring and continuous pulse oximetry. Cardizem 15 mg x 1 ordered and given. HR remained in the 140's. Second dose of cardizem ordered and given per my attending physician. She had been on Xarelto until 2 days ago. Tachycardia is likely secondary to an infectious process. CBC with a white count of 21.4 with a left shift Lactic acid 4.0 Blood cultures ordered Troponin 0.21 possibly secondary to demand ischemia BUN and creatinine elevated at 52/2.16 AST/ALT 649/246. Coags are unremarkable Urinalysis is indicative of urinary tract infection, reflux urine culture is pending. Second liter of IV fluids ordered. Vancomycin and Zosyn ordered. CT abdomen and pelvis shows constipation, infrarenal aortic aneurysm measuring 3.1 cm, there is no inflammatory process noted. Call was placed to [facility] for admission, Dr. Mccauley was informed on findings, she requested that the banquet steward to consult the patient be admitted to the ICU. Dr. Westbrook was paged. Dr. Westbrook was informed of patient's presentation, results of labs and imaging. Patient is admitted to the banquet steward service and will be placed in the intensive care unit. Sepsis Criteria SIRS Criteria (2 or more): Heart rate over 90, WBC > 95323, < 4000 or > 10% bands Sepsis Criteria (SIRS+source): Infect source susp/known Severe Sepsis (+one): Organ Dysfunction, Lactate >2, Acute Oliguria/Renal Failure Septic Shock Criteria: Lactic acid >=4 Multiple Organ Dysfunction Syn: Evidence -2 organs failing Criteria Outcome: Meets multiple organ dys. criteria Diagnosis Primary Impression: Sepsis with multiple organ dysfunction (MOD) Additional Impressions: BRENT (acute kidney injury) Transaminitis Elevated troponin level Urinary tract infection Qualified Code: N39.0 - Urinary tract infection with hematuria, site unspecified Dementia Qualified Code: F03.90 - Dementia without behavioral disturbance, unspecified dementia type Admitting Information Admitting Physician Requests: Admit Condition: Serious Josi Azul December 08, 2016 19:21
[2016-12-08 19:44] LABS: AUTOMATED NEUTROPHIL # 19.6 TH/MM3 (1.8-7.7); BASOPHIL % 0.1 % (0.0-2.0); HEMATOCRIT 45.9 % (35.0-46.0); HEMO FLAGS DIFF FINAL; LYMPH % 4.3 % (9.0-44.0); LYMPHOCYTE # 0.9 TH/MM3 (1.0-4.8); MEAN CELL VOLUME 91.5 FL (80.0-100.0); MEAN CORPUSCULAR HEMOGLOBIN 30.7 PG (27.0-34.0); MEAN CORPUSCULAR HGB CONC 33.6 % (32.0-36.0); MONO % 3.8 % (0.0-8.0); NEUT % 91.8 % (16.0-70.0); PLATELET COUNT 311 TH/MM3 (150-450); RED BLOOD COUNT 5.01 MIL/MM3 (4.00-5.30); RED CELL DISTRIBUTION WIDTH 13.9 % (11.6-17.2); WHITE BLOOD COUNT 21.4 TH/MM3 (4.0-11.0)
[2016-12-08] MEDS ORDERED: DILTIAZEM HCL 25 MG/5 ML VIAL IV ONE (19:45)
[2016-12-08 19:58] LABS: APTT (PATIENT) 23.4 SEC (24.3-30.1); INTERNATIONAL NORMALIZED RATIO 1.3 RATIO; PROTHROMBIN TIME - PATIENT 14.1 SEC (9.8-11.6)
[2016-12-08] MEDS ORDERED: VANCOMYCIN INJ 1,000 MG in SODIUM CHLOR 0.9% 250 ML INJ 250 ML IV STA (20:12)
[2016-12-08 20:15] LABS: ALKALINE PHOSPHATASE 141 U/L (45-117); ALT (GPT) 246 U/L (10-53); ANION GAP 14 MEQ/L (5-15); AST (GOT) 649 U/L (15-37); BICARBONATE 24.9 MEQ/L (21.0-32.0); BLOOD UREA NITROGEN 52 MG/DL (7-18); CHLORIDE 100 MEQ/L (98-107); GLOMERULAR FILTRATION RATE 22 ML/MIN (>89); SODIUM (NA) 139 MEQ/L (136-145); TOTAL BILIRUBIN ADULT 0.9 MG/DL (0.2-1.0)
[2016-12-08] MEDS ORDERED: SODIUM CHLOR 0.9% 1000 ML INJ 1,000 ML IV ONE ×3 (20:15→22:46)
[2016-12-08 20:16] LABS: POTASSIUM 5.9 MEQ/L (3.5-5.1)
--- NOTE | 2016-12-08 20:29 | RADRPT ---
EXAM DATE/TIME: 12/08/2016 20:24 [facility] COMPARISON: CHEST SINGLE AP, November 17, 2016, 19:07. INDICATIONS : Fever. MEDICAL HISTORY : None. SURGICAL HISTORY : None. ENCOUNTER: Initial ACUITY: 1 day PAIN SCORE: Non-responsive. LOCATION: Bilateral chest FINDINGS: A single view of the chest demonstrates the lungs to be symmetrically aerated without evidence of mas s, infiltrate or effusion. The cardiomediastinal contours are unremarkable. Osseous structures are intact. CONCLUSION: No acute disease. Brian Chase MD on December 08, 2016 at 20:26 Board Certified Radiologist. This report was verified electronically.
[2016-12-08] MEDS ORDERED: PIPERACIL-TAZO 3.375 GM PREMIX 50 ML IV ONE (20:30)
[2016-12-08] MEDS ORDERED: METOPROLOL TARTRATE 5 MG/5 ML VIAL IV PUSH ONE ×2 (20:45→22:00)
--- NOTE | 2016-12-08 21:00 | PD ---
Physical Exam Narrative I, Dr. Armendariz, have reviewed the advance practice practitioner's documentation and am in agreement, met with the patient face to face, made the diagnosis, and the medical decision making was done by me. *My assessment and Findings: Patient is a 86 year old female who comes from her NH after having nausea and vomiting. She is oriented to person only and cannot provide any history. She was here 2 weeks ago for a broken hip. Today she is very tachycardic, which is new. On exam, her abdomen is tender to palpation. Data Data Last Documented VS Vital Signs Date Time Temp Pulse Resp B/P Pulse Ox O2 Delivery O2 Flow Rate FiO2 12/08/16 21:55 143 18 129/80 99 Nasal Cannula 2 12/08/16 19:07 97.4 Orders Complete Blood Count With Diff (12/08/16 19:11) Comprehensive Metabolic Panel (12/08/16 19:11) Lipase (12/08/16 19:11) Lactic Acid (12/08/16 19:11) Prothrombin Time / Inr (Pt) (12/08/16 19:11) Act Partial Throm Time (Ptt) (12/08/16 19:11) Urinalysis - C+S If Indicated (12/08/16 19:11) Iv Access Insert/Monitor (12/08/16 19:11) Ecg Monitoring (12/08/16 19:11) Oximetry (12/08/16 19:11) Ondansetron Inj (Zofran Inj) (12/08/16 19:15) Sodium Chlor 0.9% 1000 Ml Inj (Ns 1000 M (12/08/16 19:11) Sodium Chloride 0.9% Flush (Ns Flush) (12/08/16 19:15) Electrocardiogram (12/08/16 19:11) Cath For Specimen (12/08/16 19:11) Troponin I (12/08/16 19:32) Ckmb (Isoenzyme) Profile (12/08/16 19:32) Diltiazem Inj (Cardizem Inj) (12/08/16 19:45) Chest, Single Ap (12/08/16 ) Sodium Chlor 0.9% 1000 Ml Inj (Ns 1000 M (12/08/16 20:15) Vancomycin Inj (Vancomycin Inj) (12/08/16 20:12) Blood Culture (12/08/16 20:12) Urinary Catheter Insert/Apply (12/08/16 20:14) Piperacil-Tazo 3.375 Gm Premix (Zosyn 3. (12/08/16 20:30) Ct Abd/Pel W/O Iv Contrast (12/08/16 ) Metoprolol Tartrate Inj (Lopressor Inj) (12/08/16 20:45) CKMB (12/08/16 19:20) CKMB% (12/08/16 19:20) Urine Culture (12/08/16 20:25) Metoprolol Tartrate Inj (Lopressor Inj) (12/08/16 22:00) Admit Order (Ed Use Only) (12/08/16 21:53) Labs Laboratory Tests Test 12/08/16 12/08/16 12/08/16 19:20 19:25 20:25 Prothrombin Time 14.1 SEC Prothromb Time International 1.3 RATIO Ratio Activated Partial 23.4 SEC Thromboplast Time Sodium Level 139 MEQ/L Potassium Level 5.9 MEQ/L Chloride Level 100 MEQ/L Carbon Dioxide Level 24.9 MEQ/L Anion Gap 14 MEQ/L Blood Urea Nitrogen 52 MG/DL Creatinine 2.16 MG/DL Estimat Glomerular Filtration 22 ML/MIN Rate Random Glucose 154 MG/DL Calcium Level 9.7 MG/DL Total Bilirubin 0.9 MG/DL Aspartate Amino Transf 649 U/L (AST/SGOT) Alanine Aminotransferase 246 U/L (ALT/SGPT) Alkaline Phosphatase 141 U/L Total Creatine Kinase 271 U/L Creatine Kinase MB 5.1 NG/ML Creatine Kinase MB % 1.9 % Troponin I 0.21 NG/ML Total Protein 8.0 GM/DL Albumin 2.9 GM/DL Lipase 77 U/L White Blood Count 21.4 TH/MM3 Red Blood Count 5.01 MIL/MM3 Hemoglobin 15.4 GM/DL Hematocrit 45.9 % Mean Corpuscular Volume 91.5 FL Mean Corpuscular Hemoglobin 30.7 PG Mean Corpuscular Hemoglobin 33.6 % Concent Red Cell Distribution Width 13.9 % Platelet Count 311 TH/MM3 Mean Platelet Volume 9.8 FL Neutrophils (%) (Auto) 91.8 % Lymphocytes (%) (Auto) 4.3 % Monocytes (%) (Auto) 3.8 % Eosinophils (%) (Auto) 0.0 % Basophils (%) (Auto) 0.1 % Neutrophils # (Auto) 19.6 TH/MM3 Lymphocytes # (Auto) 0.9 TH/MM3 Monocytes # (Auto) 0.8 TH/MM3 Eosinophils # (Auto) 0.0 TH/MM3 Basophils # (Auto) 0.0 TH/MM3 CBC Comment DIFF FINAL Differential Comment Lactic Acid Level 4.0 mmol/L Urine Color YELLOW Urine Turbidity CLOUDY Urine pH 6.0 Urine Specific [place] 1.017 Urine Protein 100 mg/dL Urine Glucose (UA) NEG mg/dL Urine Ketones TRACE mg/dL Urine Occult Blood MOD Urine Nitrite NEG Urine Bilirubin NEG Urine Urobilinogen 4.0 MG/DL Urine Leukocyte Esterase LARGE Urine RBC 26 /hpf Urine WBC /hpf Urine WBC Clumps MOD Urine Bacteria MANY /hpf Urine Hyaline Casts 28 /lpf Urine Mucus MOD /lpf Microscopic Urinalysis Comment CULTURE INDICATED MDM Supervised Visit with [facility]: Yes Narrative Course Labs show an elevated WBC count. Cr is elevated to 2.16 which is new, BUN is 52 , suggesting dehydration. Lactic acid is also very elevated to 4.0. Given 2 L IVF. Given broad spectrum antibiotics. Urinalysis positive for infection. Patient admitted for further management. Diagnosis Primary Impression: Urinary tract infection Qualified Code: N39.0 - Urinary tract infection with hematuria, site unspecified Additional Impression: BRENT (acute kidney injury) Admitting Information Admitting Physician Requests: Admit Arabella Armendariz MD December 08, 2016 20:59
[2016-12-08 21:02] LABS: CKMB 5.1 NG/ML (0.5-3.6)
--- NOTE | 2016-12-08 21:07 | RADRPT ---
EXAM DATE/TIME: 12/08/2016 20:52 [facility] COMPARISON: No previous studies available for comparison. INDICATIONS : Diffuse abdominal pain and vomiting. ORAL CONTRAST: Partial prescribed oral contrast ingested. RADIATION DOSE: 11.90 CTDIvol (mGy) MEDICAL HISTORY : Dementia. SURGICAL HISTORY : Left hip replacement. ENCOUNTER: Initial ACUITY: 1 day PAIN SCALE: 6/10 LOCATION: Bilateral abdomen TECHNIQUE: Volumetric scanning of the abdomen and pelvis was performed. Using automated exposure control and ad justment of the mA and/or kV according to patient size, radiation dose was kept as low as reasonably achievable to obtain optimal diagnostic quality images. FINDINGS: LOWER LUNGS: The visualized lower lungs are clear. LIVER: Homogeneous density without lesion. There is no dilation of the biliary tree. No calcified gallston es. SPLEEN: Normal size without lesion. PANCREAS: Within normal limits. KIDNEYS: Normal in size and shape. There is no mass, stone, or hydronephrosis. ADRENAL GLANDS: Within normal limits. VASCULAR: Infrarenal abdominal aortic aneurysm measures 3.1 cm BOWEL/MESENTERY: Diverticulosis without diverticulitis. Copious amount of stool the rectum. There is no free intraper itoneal air or fluid. ABDOMINAL WALL: Within normal limits. RETROPERITONEUM: There is no lymphadenopathy. BLADDER: No wall thickening or mass. Eagle catheter. REPRODUCTIVE: Within normal limits. INGUINAL: There is no lymphadenopathy or hernia. MUSCULOSKELETAL: Left hip prosthesis. CONCLUSION: 1. Infrarenal abdominal aortic aneurysm measures 3.1 cm. 2. Constipation. 3. No acute inflammatory process. Brian Chase MD on December 08, 2016 at 21:02 Board Certified Radiologist. This report was verified electronically.
[2016-12-08 21:09] LABS: BACTERIA, URINE MANY /hpf; BLOOD, URINE MOD (NEG); COMMENT (UR) CULTURE INDICATED; CULTURE IF INDICATED CULTURE INDICATED; GLUCOSE,URINE NEG (NEG); HYALINE CAST, URINE 28 /lpf (RARE); KETONE, URINE TRACE mg/dL (NEG); MUCUS URINE MOD /lpf (OCC); NITRITE,URINE NEG (NEG); URINE COLOR YELLOW (YELLW/STRAW)
[2016-12-08] MEDS ORDERED: BISACODYL 10 MG SUPP RECTAL PRN (22:45)
--- NOTE | 2016-12-08 22:52 | HHI.HP ---
HPI Service Critical Care Medicine Primary Care Physician Unknown Admission Diagnosis SEPSIS, multisystem organ dysfunction, UTI Diagnosis: Travel History International Travel<30 Days: No Contact w/Intl Traveler <30 Da: No Traveled to Known Affected Are: No History of Present Illness 86-year-old female who was here recently for hip replacement, is sent by her rehabilitation facility for evaluation of nausea and vomiting. Patient has a history of dementia and is a poor historian. Also documented information was gathered from the chart. Per the rehabilitation facility patient had one episode of nausea and vomiting earlier today and was given Zofran and did not have a recurrence. Family requested patient be brought to the emergency room for evaluation. In the emergency department she was found to have a lactic acid 4, elevated creatinine urine, as well as a heart rate at 140s. The concern was tobacco developing abdominal sepsis, however CT scan of the abdomen is negative. Review of Systems ROS Unable to obtain patient is severely demented Past Family Social History Allergies: Coded Allergies: No Known Allergies (Unverified , 12/08/16) Past Medical History Dementia and depression Past Surgical History Left hip surgery October 2016 Reported Medications Current Medications Medications (Trade) Dose Ordered Sig/Claudette Route PRN Reason Start Time Stop Time Status Last Admin Dose Admin Bisacodyl (Dulcolax Supp) 10 mg DAILY PRN RECTAL CONSTIPATION 12/08/16 22:45 Citalopram Hydrobromide (CeleXA) 20 mg DAILY PO 12/09/16 09:00 Donepezil HCl (Aricept) 10 mg HS PO 12/09/16 21:00 Memantine 10 mg 10 mg BID PO 12/09/16 09:00 Sodium Chloride (NS 1000 ml Inj) 1,000 ml @ 75 mls/hr [id number] IV 12/08/16 22:46 12/08/16 23:33 Sodium Chloride (NS Flush) 2 ml UNSCH PRN IV FLUSH FLUSH AFTER USING IV ACCESS 12/08/16 23:00 Sodium Chloride (NS Flush) 2 ml BID IV FLUSH 12/09/16 09:00 Pantoprazole Sodium (Protonix Inj) 40 mg DAILY IV 12/09/16 09:00 Heparin Sodium (Porcine) 5000 units 5,000 units Q8H SQ 12/08/16 23:00 12/08/16 23:40 Pharmacy Profile Note 0 ml @ 0 mls/hr UNSCH OTHER 12/08/16 23:00 Piperacillin Sod/ Tazobactam Sod (Zosyn 4.5 Gm Premix) 100 ml @ 200 mls/hr Q6H IV 12/09/16 04:00 Miscellaneous Information 1 Q361D XX 12/08/16 23:00 Chlorhexidine Gluconate (Chlorhexidine 2% Cloth) 3 pack Taper DAILY@04 TOP 12/09/16 04:00 12/05/17 03:59 Chlorhexidine Gluconate (Chlorhexidine 2% Cloth) 3 pack UNSCH PRN TOP HYGIENIC CARE 12/08/16 23:00 Senna/Docusate Sodium (Fina-Colace) 2 tab BID PO 12/09/16 09:00 Active Ordered Medications Current Medications Medications (Trade) Dose Ordered Sig/Claudette Route PRN Reason Start Time Stop Time Status Last Admin Dose Admin Bisacodyl (Dulcolax Supp) 10 mg DAILY PRN RECTAL CONSTIPATION 12/08/16 22:45 Citalopram Hydrobromide (CeleXA) 20 mg DAILY PO 12/09/16 09:00 Donepezil HCl (Aricept) 10 mg HS PO 12/09/16 21:00 Memantine 10 mg 10 mg BID PO 12/09/16 09:00 Sodium Chloride (NS 1000 ml Inj) 1,000 ml @ 75 mls/hr [id number] IV 12/08/16 22:46 12/08/16 23:33 Sodium Chloride (NS Flush) 2 ml UNSCH PRN IV FLUSH FLUSH AFTER USING IV ACCESS 12/08/16 23:00 Sodium Chloride (NS Flush) 2 ml BID IV FLUSH 12/09/16 09:00 Pantoprazole Sodium (Protonix Inj) 40 mg DAILY IV 12/09/16 09:00 Heparin Sodium (Porcine) 5000 units 5,000 units Q8H SQ 12/08/16 23:00 12/08/16 23:40 Pharmacy Profile Note 0 ml @ 0 mls/hr UNSCH OTHER 12/08/16 23:00 Piperacillin Sod/ Tazobactam Sod (Zosyn 4.5 Gm Premix) 100 ml @ 200 mls/hr Q6H IV 12/09/16 04:00 Miscellaneous Information 1 Q361D XX 12/08/16 23:00 Chlorhexidine Gluconate (Chlorhexidine 2% Cloth) 3 pack Taper DAILY@04 TOP 12/09/16 04:00 12/05/17 03:59 Chlorhexidine Gluconate (Chlorhexidine 2% Cloth) 3 pack UNSCH PRN TOP HYGIENIC CARE 12/08/16 23:00 Senna/Docusate Sodium (Fina-Colace) 2 tab BID PO 12/09/16 09:00 Family History Noncontributory Social History Quit smoking many years ago No alcohol or illicit drug abuse Physical Exam Vital Signs Vital Signs Date Time Temp Pulse Resp B/P Pulse Ox O2 Delivery O2 Flow Rate FiO2 12/08/16 21:35 145 20 137/74 98 Nasal Cannula 2 12/08/16 20:40 150 20 135/67 98 Nasal Cannula 2 12/08/16 20:25 140 20 164/68 98 Nasal Cannula 2 12/08/16 20:10 145 20 149/67 98 Nasal Cannula 2 12/08/16 19:50 145 20 152/73 98 Nasal Cannula 2 12/08/16 19:48 153 20 125/56 98 Nasal Cannula 2 12/08/16 19:45 150 20 104/55 99 Nasal Cannula 2 12/08/16 19:40 143 20 119/57 98 Nasal Cannula 2 12/08/16 19:35 97 Nasal Cannula 2 12/08/16 19:07 97.4 148 20 126/67 95 Physical Exam GENERAL: Elderly pleasantly demented female, in no acute distress SKIN: Warm and dry. HEAD: Normocephalic. EYES: No scleral icterus. No injection or drainage. NECK: Supple, trachea midline. No JVD or lymphadenopathy. CARDIOVASCULAR: Regular rate and rhythm without murmurs, gallops, or rubs. RESPIRATORY: Breath sounds equal bilaterally. No accessory muscle use. GASTROINTESTINAL: Abdomen soft, non-tender, nondistended. MUSCULOSKELETAL: No cyanosis, or edema. BACK: Nontender without obvious deformity. No CVA tenderness. EXTREMITIES: No clubbing cyanosis or edema Laboratory Laboratory Tests Test 12/08/16 12/08/16 12/08/16 19:20 19:25 20:25 White Blood Count 21.4 Red Blood Count 5.01 Hemoglobin 15.4 Hematocrit 45.9 Mean Corpuscular Volume 91.5 Mean Corpuscular Hemoglobin 30.7 Mean Corpuscular Hemoglobin 33.6 Concent Red Cell Distribution Width 13.9 Platelet Count 311 Mean Platelet Volume 9.8 Neutrophils (%) (Auto) 91.8 Lymphocytes (%) (Auto) 4.3 Monocytes (%) (Auto) 3.8 Eosinophils (%) (Auto) 0.0 Basophils (%) (Auto) 0.1 Neutrophils # (Auto) 19.6 Lymphocytes # (Auto) 0.9 Monocytes # (Auto) 0.8 Eosinophils # (Auto) 0.0 Basophils # (Auto) 0.0 CBC Comment DIFF FINAL Differential Comment Prothrombin Time 14.1 Prothromb Time International 1.3 Ratio Activated Partial 23.4 Thromboplast Time Sodium Level 139 Potassium Level 5.9 Chloride Level 100 Carbon Dioxide Level 24.9 Anion Gap 14 Blood Urea Nitrogen 52 Creatinine 2.16 Estimat Glomerular Filtration 22 Rate Random Glucose 154 Calcium Level 9.7 Total Bilirubin 0.9 Aspartate Amino Transf 649 (AST/SGOT) Alanine Aminotransferase 246 (ALT/SGPT) Alkaline Phosphatase 141 Total Creatine Kinase 271 Creatine Kinase MB 5.1 Creatine Kinase MB % 1.9 Troponin I 0.21 Total Protein 8.0 Albumin 2.9 Lipase 77 Lactic Acid Level 4.0 Urine Color YELLOW Urine Turbidity CLOUDY Urine pH 6.0 Urine Specific [place] 1.017 Urine Protein 100 Urine Glucose (UA) NEG Urine Ketones TRACE Urine Occult Blood MOD Urine Nitrite NEG Urine Bilirubin NEG Urine Urobilinogen 4.0 Urine Leukocyte Esterase LARGE Urine RBC 26 Urine WBC Urine WBC Clumps MOD Urine Bacteria MANY Urine Hyaline Casts 28 Urine Mucus MOD Microscopic Urinalysis Comment CULTURE INDICATED Date/Time Procedure Status Source Growth 12/08/16 21:10 Aerobic Blood Culture Received Blood Peripheral Pending 12/08/16 21:10 Anaerobic Blood Culture Received Blood Peripheral Pending 12/08/16 20:25 Urine Culture Received Urine Clean Catch Pending Result Diagram: 12/08/16191912/08/161919 Assessment and Plan Assessment and Plan Abdominal pain - Leukocytosis - Empiric antibiotics - Follow-up cultures - Follow-up of lactic acids trend - CT negative - Physical exam benign - Treat constipation Constipation - Senna Dulcolax - Milk of magnesia Acute kidney injury - Gentle IV fluid hydration - Monitor I's and O's - Monitor creatinine and electrolytes Dementia - Continue Namenda and are except per home dosing Anticoagulation post hip surgery - Hold Xarelto while in the ICU - DVT prophylaxis with subcutaneous heparin Critical Care: The total critical care time was 35 minutes. Time to perform other separately billable procedures was not included in the critical care time. Alejandro Westbrook MD December 08, 2016 22:52
[2016-12-08] MEDS ORDERED: RESP: ALBUTEROL 2.5 MG/IPRATROPIUM 0.5 MG NEB (PRN) INH (23:00)
[2016-12-08] MEDS ORDERED: MISCELLANEOUS NURSING INFORMATION XX SCH (23:00)
[2016-12-08] MEDS ORDERED: VANCOMYCIN INJ 1,000 MG in SODIUM CHLOR 0.9% 250 ML INJ 250 ML IV SCH (23:00)
[2016-12-08] MEDS ORDERED: Vancomycin Consult Pharmacy 1 EA OTHER SCH (23:00)
[2016-12-08] MEDS ORDERED: CHLORHEXIDINE GLUCONATE 2 % 1 PACK (2 CLOTHS) TOP PRN (23:00)
[2016-12-08 23:26] LABS: BLOOD GAS BASE EXCESS -3.2 mmol/L (-2-2); BLOOD GAS CARBOXYHEMOGLOBIN 0.8 % (0-4); BLOOD GAS HCO3 20 mmol/L (22-26); BLOOD GAS METHEMOGLOBIN 0.6 % (0-2); BLOOD GAS O2 HGB SATURATION 97 % (90-100); BLOOD GAS OXYGEN CONTENT 17.2 Vol % (12.0-20.0); BLOOD GAS PCO2 26 mmHg (38-42); BLOOD GAS PO2 100 mmHG (61-120); BLOOD GAS TOTAL HGB 12.6 G/DL (12.0-16.0); TEMP CORR TO 98.6
[2016-12-08 23:27] LABS: CRITICAL VALUE NO; DRAW SITE RT RADIAL; LITER FLOW 2 L/M; NUMBER OF ARTERIAL PUNCTURES 2; OXYGEN DEVICE NASAL CANNULA; STAT YES; ULNAR PULSE PRESENT
[2016-12-08] MEDS: HEPARIN SODIUM - SQ 10,000 UNITS/ML VIAL SQ SCH (23:40)
[2016-12-09] VITALS (21 sets, daily range): BP systolic 93–128; BP diastolic 52–85; PULSE 76–145; RESP 18–35; TEMP 97.6–98.5; O2SAT 91–97
[2016-12-09] MEDS ORDERED: MAGNESIUM HYDROXIDE SUSP 30 ML CUP PO ONE (01:15)
[2016-12-09] MEDS ORDERED: DOCUSATE SODIUM 50 MG/SENNA 8.6 MG TAB PO ONE (01:15)
[2016-12-09 03:16] LABS: AUTOMATED NEUTROPHIL # 17.6 TH/MM3 (1.8-7.7); BASOPHIL % 0.1 % (0.0-2.0); HEMATOCRIT 38.2 % (35.0-46.0); HEMO FLAGS DIFF FINAL; LYMPH % 3.3 % (9.0-44.0); LYMPHOCYTE # 0.6 TH/MM3 (1.0-4.8); MEAN CORPUSCULAR HEMOGLOBIN 30.4 PG (27.0-34.0); MEAN CORPUSCULAR HGB CONC 32.6 % (32.0-36.0); NEUT % 92.6 % (16.0-70.0); PLATELET COUNT 204 TH/MM3 (150-450); RED CELL DISTRIBUTION WIDTH 13.5 % (11.6-17.2)
[2016-12-09 03:36] LABS: BICARBONATE 23.7 MEQ/L (21.0-32.0); POTASSIUM 4.6 MEQ/L (3.5-5.1)
[2016-12-09] MEDS ORDERED: METOPROLOL TARTRATE 5 MG/5 ML VIAL IV PUSH SCH ×2 (03:45→10:00)
[2016-12-09 03:50] LABS: ALKALINE PHOSPHATASE 104 U/L (45-117); ALT (GPT) 179 U/L (10-53); ANION GAP 11 MEQ/L (5-15); AST (GOT) 340 U/L (15-37); BICARBONATE 21.9 MEQ/L (21.0-32.0); BLOOD UREA NITROGEN 42 MG/DL (7-18); CHLORIDE 116 MEQ/L (98-107); GLOMERULAR FILTRATION RATE 39 ML/MIN (>89); POTASSIUM 4.4 MEQ/L (3.5-5.1); SODIUM (NA) 149 MEQ/L (136-145); TOTAL BILIRUBIN ADULT 0.7 MG/DL (0.2-1.0)
[2016-12-09] MEDS: CHLORHEXIDINE GLUCONATE 2 % 1 PACK (2 CLOTHS) TOP SCH (04:00)
[2016-12-09] MEDS: PIPERACIL-TAZO 4.5 GM PREMIX 100 ML IV SCH ×2 (04:22→09:37)
[2016-12-09] MEDS: HEPARIN SODIUM - SQ 10,000 UNITS/ML VIAL SQ SCH ×3 (08:24→22:36)
[2016-12-09] MEDS ORDERED: ADENOSINE IV SOLN 3 MG/ML 2 ML VIAL ONE (08:50)
[2016-12-09] MEDS: DOCUSATE SODIUM 50 MG/SENNA 8.6 MG TAB PO SCH ×2 (09:00→20:23)
[2016-12-09] MEDS ORDERED: ADENOSINE IV SOLN 3 MG/ML 2 ML VIAL IV PUSH ONE (09:00)
--- NOTE | 2016-12-09 09:13 | HHI.CCPN ---
Subjective Remarks/Hospital Course 86-year-old female who was here recently for hip replacement, is sent by her rehabilitation facility for evaluation of nausea and vomiting. Patient has a history of dementia and is a poor historian. Also documented information was gathered from the chart. Per the rehabilitation facility patient had one episode of nausea and vomiting earlier today and was given Zofran and did not have a recurrence. Family requested patient be brought to the emergency room for evaluation. In the emergency department she was found to have a lactic acid 4, elevated creatinine urine, as well as a heart rate at 140s. The concern was tobacco developing abdominal sepsis, however CT scan of the abdomen is negative. Subjective: 12/09: Underlying rhythm is atrial flutter. Previously on Xarelto so likely not pulmonary embolus. Noted elevated troponin on admission 0.21. Patient does have urinary tract infection. ALT is elevated will check liver ultrasound despite essentially negative CT abdomen/pelvis.. Patient is demented Objective Vital Signs Date Time Temp Pulse Resp B/P Pulse Ox O2 Delivery O2 Flow Rate FiO2 12/09/16 08:56 96 Nasal Cannula 2.00 12/09/16 08:00 140 12/09/16 08:00 98.3 20 128/75 Result Diagram: 12/09/16 0304 12/09/16 0304 Other Results Microbiology Date/Time Procedure Status Source Growth 12/08/16 21:10 Aerobic Blood Culture Received Blood Peripheral Pending 12/08/16 21:10 Anaerobic Blood Culture Received Blood Peripheral Pending 12/08/16 20:25 Urine Culture Received Urine Clean Catch Pending Imaging Last Impressions Chest X-Ray 12/08/16 0000 Signed Impressions: Service Date/Time: Thursday, December 08, 2016 20:24 - CONCLUSION: No acute disease. Brian Chase MD Abdomen/Pelvis CT 12/08/16 0000 Signed Impressions: Service Date/Time: Thursday, December 08, 2016 20:52 - CONCLUSION: 1. Infrarenal abdominal aortic aneurysm measures 3.1 cm. 2. Constipation. 3. No acute inflammatory process. Brian Chase MD Objective Remarks GENERAL: 86-year-old female, currently resting in bed, in no acute distress SKIN: Warm and dry. HEAD: Normocephalic. EYES: No scleral icterus. No injection or drainage. NECK: Supple, trachea midline. No JVD or lymphadenopathy. CARDIOVASCULAR: IR. Tachycardia. Without murmurs, gallops, or rubs. RESPIRATORY: Breath sounds equal bilaterally. No accessory muscle use. GASTROINTESTINAL: Abdomen soft, tender to palpation throughout. Pathology guarding. No rigidity. MUSCULOSKELETAL: With no significant edema. BACK: Nontender without obvious deformity. No CVA tenderness. NEURO: Cranial nerves II through XII grossly intact. Strength is equal symmetric. normal sensation. A/P Assessment and Plan Neuro/Psych: Dementia Depression Continue Celexa 20 mg by mouth daily for depression Continue Namenda 10 mg by mouth twice a day along with Aricept 10 mg daily for dementia Acetaminophen for fever CV: Atrial flutter Elevated troponin 3.1 cm infrarenal AAA Status post 6 mg adenosine for narrow complex tachycardia. Underlying rhythm is atrial flutter. We'll start on low-dose digoxin and beta kindra ureters Cycle troponin. 2-D echocardiogram ordered. History of present illness likely demand related. Resp: Nasal cannula to maintain saturations greater than equal to 92% Incentive spirometry while awake Chest x-ray on admission revealed no acute cardiopulmonary findings As needed bronchodilator therapy GI: Sigmoid diverticulosis Abdominal pain NOS Elevated transaminases CT abdomen/pelvis revealed sigmoid diverticulosis without diverticulitis. Copious stool in rectum. Recheck liver ultrasound/hepatitis panel and transaminases in a.m. CPK pending Patient is currently nothing by mouth Protonix for GI prophylaxis Fina Colace for bowel regimen. Glycerin suppository 1 : Eagle if indicated for accurate I's nose any critically ill patient Endo: Sliding-scale insulin if indicated to maintain euglycemia/low regimen Check TSH with underlying atrial flutter Renal: Acute kidney injury Creatinine currently 1.3. Monitor trends. Accurate I's and O's Monitor urine output Heme: Leukocytosis Downward trend. Follow-up CBC in a.m. ID: Urinary tract infection Day #2 Zosyn. 1 dose of vancomycin ED Urine culture/blood cultures 2 12/08 are pending FEN: Hypernatremia Replace electrolytes as clinically indicated. Check magnesium and phosphorus Switch to quarter normal saline at 84 cc an hour MSK: Recent left hip bipolar hemiarthroplasty by Dr. Santiago previously on Xarelto 10 mg by mouth daily. This is currently on hold. Resume when clinically indicated PT evaluate and treat Access - Utilize peripheral IV. Central line if indicated Prophylaxis - GI - Protonix - DVT - SCD/heparin Critical Care: The total critical care time was 35 minutes. Time to perform other separately billable procedures was not included in the critical care time. Brant Yanez MD December 09, 2016 09:13
[2016-12-09] MEDS: MEMANTINE HCL 10 MG TAB PO SCH ×2 (09:34→20:22)
[2016-12-09] MEDS: CITALOPRAM HYDROBROMIDE 20 MG TAB PO SCH (09:34)
[2016-12-09] MEDS: PANTOPRAZOLE SODIUM 40 MG VIAL IV SCH (09:34)
[2016-12-09] MEDS: SODIUM CHLORIDE 0.9% FLUSH 10 ML FLUSH IV FLUSH SCH ×2 (09:37→20:22)
[2016-12-09] MEDS ORDERED: GLYCERIN ADULT 2 GM SUPP RECTAL ONE (09:45)
[2016-12-09] MEDS ORDERED: GLYCERIN ADULT 2 GM SUPP RECTAL PRN (09:45)
[2016-12-09] MEDS ORDERED: DIGOXIN 0.5 MG/2 ML VIAL IV PUSH ONE ×2 (09:45→15:45)
[2016-12-09 11:14] LABS: MAGNESIUM 1.9 MG/DL (1.5-2.5)
[2016-12-09] MEDS: SODIUM CHLORIDE 23.4% INJ 38.5 MEQ in WATER STERILE FOR INJ 1,000 ML IV SCH ×2 (11:25→20:24)
[2016-12-09] MEDS: MAGNESIUM SULFATE 1 GM PREMIX 100 ML IV SCH ×2 (11:47→12:37)
--- NOTE | 2016-12-09 11:59 | RADRPT ---
EXAM DATE/TIME: 12/09/2016 10:57 [facility] COMPARISON: No previous studies available for comparison. INDICATIONS : Abnormal labs. MEDICAL HISTORY : Spinal meningitis. Dementia. Urinary retention. Depression. Dementia. Abdominal pain. Acute kidney in jury. SURGICAL HISTORY : Total left hip replacement. ENCOUNTER: Initial ACUITY: 1 day PAIN SCORE: 0/10 LOCATION: Bilateral upper quadrant MEASUREMENTS: LIVER: 12.2 cm length COMMON DUCT: 9 mm RIGHT KIDNEY: 11.2 x 3.8 x 4.5 cm SPLEEN: 8.4 cm length FINDINGS: LIVER: Normal echotexture without focal lesion or ductal dilatation. COMMON DUCT: No intraluminal mass or stone visualized. GALLBLADDER: Contains no stones, demonstrates no wall thickening or pericholecystic fluid. PANCREAS: The visualized portions are within normal limits. RIGHT KIDNEY: No hydronephrosis, stone or mass. SPLEEN: No focal lesion. CONCLUSION: 1. The common duct is at the upper limits of normal in size. Examination is otherwise within normal l imits. Micah Troncoso MD on December 09, 2016 at 11:56 Board Certified Radiologist. This report was verified electronically.
[2016-12-09] MEDS ORDERED: DILTIAZEM INJ 125 MG in SODIUM CHLORIDE 0.9% INJ 100 ML IV SCH (13:00)
--- NOTE | 2016-12-09 16:07 | EKG ---
Date Performed: 12/08/2016 Time Performed: 19:29:11 PTAGE: 86 years EKG: ATRIAL FLUTTER/TACHYCARDIA WITH RAPID VENTRICULAR RESPONSE MARKED ST DEPRESSION, CONSIDER SUBENDOCARDIAL INJURY ABNORMAL ECG Compared to the PREVIOUS TRACING atrial flutter with rapid v. response has replaced Sinus rhythm PREVIOUS TRACIN11/17/2016 19.47 DOCTOR: Saud Artis Interpretating Date/Time 12/09/2016 16:06:56
--- NOTE | 2016-12-09 16:09 | EKG ---
Date Performed: 12/09/2016 Time Performed: 00:39:58 PTAGE: 86 years EKG: Atrial flutter with rapid ventricular response INTRAVENTRICULAR CONDUCTION DELAY ABNORMAL E CG Compared to the PREVIOUS TRACING ventricular response to atrial flutter is somewhat slower PREVIOUS TRAC IN12/08/16 DOCTOR: Saud Artis Interpretating Date/Time 12/09/2016 16:07:43
--- NOTE | 2016-12-09 17:15 | RADRPT ---
EXAM DATE/TIME: 12/09/2016 16:24 [facility] COMPARISON: CHEST SINGLE AP, November 17, 2016, 19:07. INDICATIONS : Dyspnea. Hypoxia. DOSE: 8.5 mCi Tc99m MAA IV 0.98 mCi Tc99m DTPA aerosol MEDICAL HISTORY : Dementia. SURGICAL HISTORY : None. ENCOUNTER: Initial ACUITY: 1 day PAIN SCALE: 0/10 LOCATION: chest TECHNIQUE: Following five minutes of tidal breathing of DTPA aerosol, planar images of the lungs were performed in eight projections. The patient was then injected with MAA, and eight-view perfusion scan was perf ormed. FINDINGS: There is patchy distribution of radionuclide characteristic of COPD. The perfusion lung scan demonstrates a homogenous pattern of uptake in both lungs. No segmental or s ubsegmental defects are seen. CONCLUSION: 1. Low probability of pulmonary embolism Max Coreas MD on December 09, 2016 at 17:12 Board Certified Radiologist. This report was verified electronically.
[2016-12-09] MEDS: PIPERACIL-TAZO 3.375 GM PREMIX 50 ML IV SCH ×2 (17:39→20:23)
--- NOTE | 2016-12-09 19:04 | EC ---
Study Study Date:12/09/2016 STUDY CONCLUSIONS SUMMARY - Left ventricle: The cavity size was normal. Wall thickness was normal. Systolic function was normal. The estimated ejection fraction was in the range of 55% to 60%. Wall motion was normal; there were no regional wall motion abnormalities. - Aortic valve: Valve area: 2.4cm^2(VTI). Valve area: 1.51cm^2 (Vmax). If LV function is below 40, please consider prescribing an ACEI or ARB or document rationale for non-use. PROCEDURE DATA STUDY STATUS: Elective. Procedure: Transthoracic echocardiography. Image quality was good. Scanning was performed from the parasternal, apical, and subcostal acoustic windows. Study completion: The patient tolerated the procedure well. Transthoracic echocardiography. M-mode, complete 2D, complete spectral Doppler, and color Doppler. Patient status: Inpatient. CARDIAC ANATOMY LEFT VENTRICLE: The cavity size was normal. Wall thickness was normal. Systolic function was normal. The estimated ejection fraction was in the range of 55% to 60%. Wall motion was normal; there were no regional wall motion abnormalities. AORTIC VALVE: Trileaflet; normal thickness, mildly calcified leaflets. Doppler: Transvalvular velocity was within the normal range. There was no stenosis. No regurgitation. Valve area: 2.4cm^2(VTI). Valve area: 1.51cm^2 (Vmax). Mean gradient: 11mm Hg (S). Peak gradient: 17mm Hg (S). AORTA: Aortic root: The aortic root was normal in size. MITRAL VALVE: Structurally normal valve. Doppler: Transvalvular velocity was within the normal range. There was no evidence for stenosis. No regurgitation. LEFT ATRIUM: The atrium was normal in size. RIGHT VENTRICLE: The cavity size was normal. Wall thickness was normal. PULMONIC VALVE: Doppler: Transvalvular velocity was within the normal range. There was no evidence for stenosis. No regurgitation. TRICUSPID VALVE: Structurally normal valve. Doppler: Transvalvular velocity was within the normal range. No regurgitation. PULMONARY ARTERY: The main pulmonary artery was normal-sized. Systolic pressure was within the normal range. RIGHT ATRIUM: The atrium was normal in size. PERICARDIUM: There was no pericardial effusion. SYSTEMIC VEINS: Inferior vena cava: The vessel was normal in size. BASIC MEASUREMENTS ADULT Normal Left ventricle LV internal dimension, ED, chordal level, *31.5 mm 43-52 PLAX LV internal dimension, ES, chordal level, *22.6 mm 23-38 PLAX Fractional shortening, chordal level, PLAX *28 % >29 LV posterior wall thickness, ED 10.4 mm IVS/LVPW ratio, ED 0.81 <1.3 Ventricular septum Septal thickness, ED 8.41 mm Aortic valve Leaflet separation 16 mm 15-26 Right ventricle RV internal dimension, ED, PLAX 22.3 mm 19-38 BASIC MEASUREMENTS ADULT Normal Aortic valve Leaflet separation 16 mm 15-26 Aorta Root diameter, ED 21 mm 20-37 Left atrium Anterior-posterior dimension, ES 20 mm 19-40 LA/aortic root ratio 0.95 DOPPLER MEASUREMENTS ADULT Normal Main pulmonary artery Pressure, S 26 mm Hg =30 Aortic valve Peak velocity, S 205 cm/s Mean velocity, S 156 cm/s VTI, S 15.6 cm Mean gradient, S 11 mm Hg Peak gradient, S 17 mm Hg Valve area, VTI 2.4 cm^2 Valve area, Vmax 1.51 cm^2 Tricuspid valve Regurgitant peak velocity 201 cm/s Peak RV-RA gradient, S 16 mm Hg Systemic veins Estimated CVP 10 mm Hg Right ventricle RV pressure, S 26 mm Hg <30 LEGEND: Mean values are shown as u=mean value. Asterisk (*) thompson values outside specified normal range. Prepared and signed by Nanci Flores [id number]
[2016-12-09] MEDS: FLUTICASONE PROPIONATE 50 MCG/ACT 16 GM NASAL SPRAY EACH NARE SCH (20:22)
[2016-12-09] MEDS: DONEPEZIL HCL 5 MG TAB PO SCH (20:23)
[2016-12-09] MEDS ORDERED: VANCOMYCIN 1,000 MG/NS 250 ML IV SCH ×2 (21:00)
[2016-12-10] VITALS (39 sets, daily range): BP systolic 90–133; BP diastolic 43–79; PULSE 55–81; RESP 18–57; TEMP 98–98.5; O2SAT 72–99
[2016-12-10] MEDS ORDERED: DILTIAZEM HCL 60 MG TAB PO SCH (03:30)
[2016-12-10] MEDS: CHLORHEXIDINE GLUCONATE 2 % 1 PACK (2 CLOTHS) TOP SCH ×2 (04:00→20:18)
[2016-12-10] MEDS: PIPERACIL-TAZO 3.375 GM PREMIX 50 ML IV SCH ×4 (04:17→20:18)
--- NOTE | 2016-12-10 04:54 | RADRPT ---
EXAM DATE/TIME: 12/10/2016 04:05 [facility] COMPARISON: CHEST SINGLE AP, December 08, 2016, 20:24. INDICATIONS : Shortness of breath. MEDICAL HISTORY : Dementia SURGICAL HISTORY : Left hip replacement ENCOUNTER: Subsequent ACUITY: 3 days PAIN SCORE: Non-responsive. LOCATION: Bilateral chest FINDINGS: A single view of the chest demonstrates the lungs to be symmetrically aerated without evidence of mas s, infiltrate or effusion. The cardiomediastinal contours are unremarkable. Osseous structures are intact. There are multiple overlying electrocardiogram leads. CONCLUSION: No acute disease. Kev Moses MD on December 10, 2016 at 4:52 Board Certified Radiologist. This report was verified electronically.
[2016-12-10 06:15] LABS: BASOPHIL % 0.1 % (0.0-2.0); HEMO FLAGS DIFF FINAL; LYMPH % 4.4 % (9.0-44.0); LYMPHOCYTE # 0.7 TH/MM3 (1.0-4.8); MEAN CELL VOLUME 93.5 FL (80.0-100.0); MEAN CORPUSCULAR HEMOGLOBIN 29.9 PG (27.0-34.0); MONO % 6.2 % (0.0-8.0); NEUT % 89.3 % (16.0-70.0); PLATELET COUNT 161 TH/MM3 (150-450); RED BLOOD COUNT 3.64 MIL/MM3 (4.00-5.30); RED CELL DISTRIBUTION WIDTH 13.6 % (11.6-17.2); WHITE BLOOD COUNT 15.6 TH/MM3 (4.0-11.0)
[2016-12-10 06:59] LABS: ALKALINE PHOSPHATASE 91 U/L (45-117); ALT (GPT) 132 U/L (10-53); ANION GAP 11 MEQ/L (5-15); AST (GOT) 128 U/L (15-37); BICARBONATE 22.4 MEQ/L (21.0-32.0); BLOOD UREA NITROGEN 34 MG/DL (7-18); CHLORIDE 114 MEQ/L (98-107); DIGOXIN 0.9 NG/ML (0.8-2.0); FREE T3 0.76 PG/ML (2.18-3.98); FREE T4 1.17 NG/DL (0.76-1.46); GLOMERULAR FILTRATION RATE 56 ML/MIN (>89); MAGNESIUM 2.3 MG/DL (1.5-2.5); POTASSIUM 3.2 MEQ/L (3.5-5.1); SODIUM (NA) 147 MEQ/L (136-145); TOTAL BILIRUBIN ADULT 0.9 MG/DL (0.2-1.0)
[2016-12-10] MEDS: DOCUSATE SODIUM 50 MG/SENNA 8.6 MG TAB PO SCH ×3 (09:00→20:18)
[2016-12-10] MEDS: PANTOPRAZOLE SODIUM 40 MG VIAL IV SCH (09:16)
[2016-12-10] MEDS: FLUTICASONE PROPIONATE 50 MCG/ACT 16 GM NASAL SPRAY EACH NARE SCH ×2 (09:16→20:18)
[2016-12-10] MEDS: POTASSIUM CHLORIDE 10 MEQ CONTROLLED RELEASE TAB PO SCH ×2 (09:16→19:51)
[2016-12-10] MEDS: CITALOPRAM HYDROBROMIDE 20 MG TAB PO SCH (09:17)
[2016-12-10] MEDS: SODIUM CHLORIDE 0.9% FLUSH 10 ML FLUSH IV FLUSH SCH ×2 (09:17→20:18)
[2016-12-10] MEDS: MEMANTINE HCL 10 MG TAB PO SCH ×2 (09:17→20:18)
[2016-12-10] MEDS: POTASSIUM PHOSPHATE/SODIUM PHOSPHATE 250 MG TAB PO SCH ×2 (09:17→16:12)
--- NOTE | 2016-12-10 12:25 | HHI.PR ---
Subjective Remarks Follow-up acute toxic metabolic encephalopathy/A. fib with RVR/UTI and now 1 positive blood culture 12/10/16-patient seen and examined, she is having multiple loose stools. Denies any chest pain or shortness of breath. Afebrile however low BP. She has now 1 positive blood culture. Patient is pleasantly confused. Per nurse report, she has some difficulty with swallowing her medications this morning. Objective Vitals Vital Signs Date Time Temp Pulse Resp B/P Pulse Ox O2 Delivery O2 Flow Rate FiO2 12/10/16 08:23 94 Nasal Cannula 2.00 12/10/16 06:00 62 12/10/16 05:30 64 20 102/50 96 12/10/16 05:00 60 39 90/43 96 12/10/16 04:30 81 38 123/58 72 12/10/16 04:00 98.0 74 41 117/56 92 12/10/16 04:00 74 12/10/16 03:31 72 54 120/57 95 12/10/16 03:00 72 57 110/55 96 12/10/16 02:30 68 51 97/49 95 12/10/16 02:00 69 12/10/16 02:00 69 33 100/51 95 12/10/16 01:30 75 33 105/54 93 12/10/16 01:00 70 36 108/53 12/10/16 00:30 69 44 104/51 90 12/10/16 00:00 66 12/10/16 00:00 98.2 66 18 101/52 95 12/10/16 00:00 66 18 101/52 95 12/09/16 22:00 80 18 93/53 93 12/09/16 22:00 80 12/09/16 21:00 85 21 101/52 91 12/09/16 21:00 85 21 101/52 91 12/09/16 20:32 94 Nasal Cannula 2.00 12/09/16 20:15 86 35 109/85 95 12/09/16 20:15 86 35 109/85 95 12/09/16 20:00 97.6 78 20 94 12/09/16 20:00 78 12/09/16 20:00 97.6 78 20 94 12/09/16 18:00 76 12/09/16 16:12 80 102/62 12/09/16 16:00 98.5 78 102/63 12/09/16 16:00 78 12/09/16 15:00 104 12/09/16 14:00 144 I/O 12/09/16 12/09/16 12/09/16 12/10/16 12/10/16 12/10/16 07:00 15:00 23:00 07:00 15:00 23:00 Intake Total 673 ml 770 ml 578 ml 857 ml Output Total 875 ml 450 ml 280 ml 215 ml Balance -202 ml 320 ml 298 ml 642 ml Intake Oral 100 ml 100 ml IV Total 673 ml 670 ml 578 ml 757 ml Output Urine Total 875 ml 450 ml 280 ml 215 ml # Bowel Movements 1 1 3 1 Result Diagram: 12/10/16 0524 12/10/16 0524 Imaging Last Impressions Chest X-Ray 12/10/16 0600 Signed Impressions: Service Date/Time: Saturday, December 10, 2016 04:05 - CONCLUSION: No acute disease. Kev Moses MD Lung Scan- Nuclear Medicine 12/09/16 0000 Signed Impressions: Service Date/Time: Friday, December 09, 2016 16:24 - CONCLUSION: 1. Low probability of pulmonary embolism Max Coreas MD Liver Ultrasound 12/09/16 0000 Signed Impressions: Service Date/Time: Friday, December 09, 2016 10:57 - CONCLUSION: 1. The common duct is at the upper limits of normal in size. Examination is otherwise within normal limits. Micah Troncoso MD Abdomen/Pelvis CT 12/08/16 0000 Signed Impressions: Service Date/Time: Thursday, December 08, 2016 20:52 - CONCLUSION: 1. Infrarenal abdominal aortic aneurysm measures 3.1 cm. 2. Constipation. 3. No acute inflammatory process. Brian Chase MD Objective Remarks GENERAL: NAD and pleasantly confused SKIN: Warm and dry. Wound on her left calf HEAD: Normocephalic. EYES: No scleral icterus. No injection or drainage. NECK: Supple, trachea midline. No JVD or lymphadenopathy. CARDIOVASCULAR: Irregular Regular rate and rhythm with II/ MANUELA RESPIRATORY: Breath sounds equal bilaterally. No accessory muscle use. GASTROINTESTINAL: Abdomen soft, non-tender, nondistended. MUSCULOSKELETAL: No cyanosis, or edema. BACK: Nontender without obvious deformity. No CVA tenderness. Procedures None A/P Problem List: (1) Sepsis with multiple organ dysfunction (MOD) ICD Code: A41.9 Status: Acute (2) Urinary tract infection ICD Code: N39.0 Status: Acute (3) BRENT (acute kidney injury) ICD Code: N17.9 Status: Acute (4) Transaminitis ICD Code: R74.0 Status: Acute (5) Displaced fracture of left femoral neck ICD Code: S72.002A Status: Acute (6) Dementia ICD Code: F03.90 Status: Chronic (7) Bacteremia due to Gram-positive bacteria ICD Code: R78.81 Status: Acute (8) Wound of left leg ICD Code: S81.802A Status: Acute (9) Diarrhea ICD Code: R19.7 Status: Acute (10) Dysphagia ICD Code: R13.10 Status: Acute (11) Hypokalemia ICD Code: E87.6 Status: Acute (12) Leukocytosis ICD Code: D72.829 Status: Acute Assessment and Plan 86-year-old female with Dementia Depression Continue Celexa 20 mg by mouth daily for depression Continue Namenda 10 mg by mouth twice a day along with Aricept 10 mg daily for dementia Acetaminophen for fever Atrial flutter Elevated troponin 3.1 cm infrarenal AAA Status post 6 mg adenosine for narrow complex tachycardia. Currently on low-dose Cardizem with holding parameters as well as Xarelto 2-D echo with EF of Sigmoid diverticulosis Abdominal pain NOS Elevated transaminases CT abdomen/pelvis revealed sigmoid diverticulosis without diverticulitis. liver ultrasound noted and reviewed by me with finding of The common duct is at the upper limits of normal in size Hepatitis panel negative LFTs trending down Patient is currently nothing by mouth Protonix for GI prophylaxis Acute kidney injury Improving with IV fluid hydration, monitor BUN and creatinine Leukocytosis Acute secondary to UTI, continue to monitor CBC Continue with antibiotics Urinary tract infection Day #3 Zosyn pending culture report Bacteremia? 1 positive blood culture, will repeat blood culture Until with above antibiotics Dysphagia Speech therapy consult for evaluation for swallow eval Keep nothing by mouth Hypernatremia Replace electrolytes as clinically indicated. Continue with quarter normal saline at 84 cc an hour Hypokalemia Replace a I to monitor Diarrhea Rule out C. difficile PCR Recent left hip bipolar hemiarthroplasty by Dr. Santiago previously on Xarelto 10 mg by mouth daily. Left calf wound Wound care nurse consultation pending Total Critical care time spent over 85 minutes Problem Qualifiers (1) Urinary tract infection: Qualified Code: N39.0 - Urinary tract infection with hematuria, site unspecified (2) Dementia: Qualified Code: F03.90 - Dementia without behavioral disturbance, unspecified dementia type Brian Rodriguez MD December 10, 2016 12:25 PT evaluate and treat Problem Qualifiers (1) Urinary tract infection: Qualified Code: N39.0 - Urinary tract infection with hematuria, site unspecified (2) Dementia: Qualified Code: F03.90 - Dementia without behavioral disturbance, unspecified dementia type Brian Rodriguez MD December 10, 2016 12:25
[2016-12-10] MEDS: DILTIAZEM HCL 30 MG TAB PO SCH ×3 (12:43→23:09)
[2016-12-10] MEDS: RIVAROXABAN 10 MG TAB PO SCH (12:43)
[2016-12-10 19:43] LABS: C. DIFF EPI 027 PRESUMPTIVE NEGATIVE (NEGATIVE); C. DIFF TOXIN PCR NEGATIVE (NEGATIVE)
[2016-12-10] MEDS: DONEPEZIL HCL 5 MG TAB PO SCH (20:17)
[2016-12-10] MEDS: LACTOBACILLUS ACIDOPHILUS TAB PO SCH (20:17)
[2016-12-11] VITALS (21 sets, daily range): BP systolic 128–165; BP diastolic 59–70; PULSE 51–70; RESP 16–20; TEMP 97.5–98.8; O2SAT 87–99
[2016-12-11] MEDS: PIPERACIL-TAZO 3.375 GM PREMIX 50 ML IV SCH ×4 (03:33→21:23)
[2016-12-11] MEDS: DILTIAZEM HCL 30 MG TAB PO SCH ×4 (05:09→23:03)
[2016-12-11 06:26] LABS: AUTOMATED NEUTROPHIL # 8.1 TH/MM3 (1.8-7.7); HEMO FLAGS DIFF FINAL; LYMPH % 8.8 % (9.0-44.0); LYMPHOCYTE # 0.8 TH/MM3 (1.0-4.8); MEAN CELL VOLUME 93.1 FL (80.0-100.0); MEAN CORPUSCULAR HEMOGLOBIN 30.1 PG (27.0-34.0); MEAN CORPUSCULAR HGB CONC 32.4 % (32.0-36.0); NEUT % 85.2 % (16.0-70.0); PLATELET COUNT 141 TH/MM3 (150-450); RED BLOOD COUNT 3.44 MIL/MM3 (4.00-5.30); RED CELL DISTRIBUTION WIDTH 13.6 % (11.6-17.2); WHITE BLOOD COUNT 9.6 TH/MM3 (4.0-11.0)
[2016-12-11 06:37] LABS: ALKALINE PHOSPHATASE 100 U/L (45-117); ALT (GPT) 141 U/L (10-53); ANION GAP 11 MEQ/L (5-15); AST (GOT) 102 U/L (15-37); BICARBONATE 26.1 MEQ/L (21.0-32.0); BLOOD UREA NITROGEN 35 MG/DL (7-18); CHLORIDE 114 MEQ/L (98-107); GLOMERULAR FILTRATION RATE 62 ML/MIN (>89); MAGNESIUM 2.5 MG/DL (1.5-2.5); POTASSIUM 3.2 MEQ/L (3.5-5.1); SODIUM (NA) 151 MEQ/L (136-145); TOTAL BILIRUBIN ADULT 0.6 MG/DL (0.2-1.0)
[2016-12-11] MEDS: FLUTICASONE PROPIONATE 50 MCG/ACT 16 GM NASAL SPRAY EACH NARE SCH ×2 (08:15→19:52)
[2016-12-11] MEDS: SODIUM CHLORIDE 0.9% FLUSH 10 ML FLUSH IV FLUSH SCH ×2 (08:16→19:53)
[2016-12-11] MEDS: CITALOPRAM HYDROBROMIDE 20 MG TAB PO SCH (08:16)
[2016-12-11] MEDS: RIVAROXABAN 10 MG TAB PO SCH (08:16)
[2016-12-11] MEDS: LACTOBACILLUS ACIDOPHILUS TAB PO SCH ×2 (08:16→19:54)
[2016-12-11] MEDS: MEMANTINE HCL 10 MG TAB PO SCH ×2 (08:16→19:54)
[2016-12-11] MEDS: PANTOPRAZOLE SODIUM 40 MG VIAL IV SCH (08:16)
--- NOTE | 2016-12-11 10:11 | HHI.PR ---
Subjective Remarks Follow-up acute toxic metabolic encephalopathy/A. fib with RVR/UTI and now 1 positive blood culture 12/10/16-patient seen and examined, she is having multiple loose stools. Denies any chest pain or shortness of breath. Afebrile however low BP. She has now 1 positive blood culture. Patient is pleasantly confused. Per nurse report, she has some difficulty with swallowing her medications this morning. 12/11/16-patient seen and examined, now with improving diarrhea, passed swallow eval. Pleasantly confused and no acute event overnight Objective Vitals Vital Signs Date Time Temp Pulse Resp B/P Pulse Ox O2 Delivery O2 Flow Rate FiO2 12/11/16 08:00 64 12/11/16 08:00 97.5 64 16 157/70 96 12/11/16 07:25 94 Nasal Cannula 2.00 12/11/16 07:01 63 161/69 99 12/11/16 06:00 62 12/11/16 04:00 62 12/11/16 04:00 98.5 61 141/63 99 12/11/16 02:00 62 12/11/16 00:00 98.3 62 128/60 99 12/11/16 00:00 62 12/10/16 22:00 62 12/10/16 20:00 62 12/10/16 19:55 99 Nasal Cannula 2.00 12/10/16 19:45 98.3 59 130/60 99 12/10/16 19:30 55 130/61 99 12/10/16 19:15 57 97 12/10/16 19:00 61 133/61 99 12/10/16 18:00 62 12/10/16 18:00 62 123/58 99 12/10/16 17:00 61 118/56 98 12/10/16 16:00 98.3 60 112/56 98 12/10/16 16:00 60 12/10/16 15:30 57 114/56 97 12/10/16 15:00 65 120/57 96 12/10/16 14:30 65 106/68 98 12/10/16 14:00 57 12/10/16 14:00 57 108/53 99 12/10/16 13:30 61 127/60 99 12/10/16 13:02 74 123/79 85 12/10/16 12:30 58 114/54 98 12/10/16 12:00 57 12/10/16 12:00 98.5 57 109/52 98 12/10/16 11:30 58 107/52 97 12/10/16 11:00 61 111/57 95 12/10/16 10:30 61 108/53 96 I/O 12/10/16 12/10/16 12/10/16 12/11/16 12/11/16 12/11/16 07:00 15:00 23:00 07:00 15:00 23:00 Intake Total 857 ml 162 ml 471 ml 147 ml Output Total 215 ml 250 ml 250 ml 275 ml Balance 642 ml -88 ml 221 ml -128 ml Intake Oral 100 ml IV Total 757 ml 162 ml 471 ml 147 ml Output Urine Total 215 ml 250 ml 250 ml 275 ml # Bowel Movements 1 4 1 2 Result Diagram: 12/11/16 0555 12/11/16 0555 Imaging Last Impressions Chest X-Ray 12/10/16 0600 Signed Impressions: Service Date/Time: Saturday, December 10, 2016 04:05 - CONCLUSION: No acute disease. Kev Moses MD Lung Scan-V Nuclear Medicine 12/09/16 0000 Signed Impressions: Service Date/Time: Friday, December 09, 2016 16:24 - CONCLUSION: 1. Low probability of pulmonary embolism Max Coreas MD Liver Ultrasound 12/09/16 0000 Signed Impressions: Service Date/Time: Friday, December 09, 2016 10:57 - CONCLUSION: 1. The common duct is at the upper limits of normal in size. Examination is otherwise within normal limits. Micah Troncoso MD Abdomen/Pelvis CT 12/08/16 0000 Signed Impressions: Service Date/Time: Thursday, December 08, 2016 20:52 - CONCLUSION: 1. Infrarenal abdominal aortic aneurysm measures 3.1 cm. 2. Constipation. 3. No acute inflammatory process. Brian Chase MD Objective Remarks GENERAL: NAD and pleasantly confused SKIN: Warm and dry. HEAD: Normocephalic. EYES: No scleral icterus. No injection or drainage. NECK: Supple, trachea midline. No JVD or lymphadenopathy. CARDIOVASCULAR: Irregular Regular rate and rhythm with II/ MANUELA RESPIRATORY: Breath sounds equal bilaterally. No accessory muscle use. GASTROINTESTINAL: Abdomen soft, non-tender, nondistended. MUSCULOSKELETAL: No cyanosis, or edema. BACK: Nontender without obvious deformity. No CVA tenderness. Procedures None A/P Problem List: (1) Sepsis with multiple organ dysfunction (MOD) ICD Code: A41.9 Status: Acute (2) Urinary tract infection ICD Code: N39.0 Status: Acute (3) BRENT (acute kidney injury) ICD Code: N17.9 Status: Acute (4) Transaminitis ICD Code: R74.0 Status: Acute (5) Displaced fracture of left femoral neck ICD Code: S72.002A Status: Acute (6) Dementia ICD Code: F03.90 Status: Chronic (7) Bacteremia due to Gram-positive bacteria ICD Code: R78.81 Status: Acute (8) Wound of left leg ICD Code: S81.802A Status: Acute (9) Diarrhea ICD Code: R19.7 Status: Acute (10) Dysphagia ICD Code: R13.10 Status: Acute (11) Hypokalemia ICD Code: E87.6 Status: Acute (12) Leukocytosis ICD Code: D72.829 Status: Acute Assessment and Plan 86-year-old female with Dementia Depression Continue Celexa 20 mg by mouth daily for depression Continue Namenda 10 mg by mouth twice a day along with Aricept 10 mg daily for dementia Acetaminophen for fever Atrial flutter Elevated troponin 3.1 cm infrarenal AAA Status post 6 mg adenosine for narrow complex tachycardia. Currently on low-dose Cardizem with holding parameters as well as Xarelto 2-D echo with EF of Sigmoid diverticulosis Abdominal pain NOS Elevated transaminases CT abdomen/pelvis revealed sigmoid diverticulosis without diverticulitis. liver ultrasound noted and reviewed by me with finding of The common duct is at the upper limits of normal in size Hepatitis panel negative Continue to monitor LFTs Protonix for GI prophylaxis Acute kidney injury Improved with IV fluid hydration, monitor BUN and creatinine Leukocytosis-resolved Acute secondary to UTI, continue to monitor CBC Continue with antibiotics Urinary tract infection Day #3 Zosyn pending culture report Bacteremia? Repeat blood culture pending Continue with above antibiotics Dysphagia Patient passed swallow eval Continue with soft mechanical diet Hypernatremia Start D5 water monitor BMP Hypokalemia Hypophosphatemia Replace electrolytes and monitor Diarrhea Improving C. difficile PCR negative Recent left hip bipolar hemiarthroplasty by Dr. Santiago previously on Xarelto 10 mg by mouth daily. Left calf wound Appreciate input from wound care nurse Problem Qualifiers (1) Urinary tract infection: Qualified Code: N39.0 - Urinary tract infection with hematuria, site unspecified (2) Dementia: Qualified Code: F03.90 - Dementia without behavioral disturbance, unspecified dementia type Brian Rodriguez MD December 11, 2016 10:11
[2016-12-11] MEDS ORDERED: POTASSIUM CHLORIDE 25 MEQ EFFERVESCENT TAB PO ONE (10:15)
[2016-12-11] MEDS ORDERED: SODIUM PHOSPHATE INJ 30 MMOL in SODIUM CHLOR 0.9% 250 ML INJ 250 ML IV ONE (10:15)
[2016-12-11] MEDS: DEXTROSE 5% IN WATE 1000ML INJ 1,000 ML IV SCH ×2 (10:56→21:23)
[2016-12-11] MEDS: DONEPEZIL HCL 5 MG TAB PO SCH (19:53)
[2016-12-11] MEDS: DOCUSATE SODIUM 50 MG/SENNA 8.6 MG TAB PO SCH (19:54)
[2016-12-11] MEDS ORDERED: PHARMACY ORDERED LAB ONE (20:45)
[2016-12-12] VITALS (13 sets, daily range): BP systolic 132–167; BP diastolic 58–72; PULSE 51–64; RESP 14–20; TEMP 96.6–98.6; O2SAT 95–99
[2016-12-12] MEDS: PIPERACIL-TAZO 3.375 GM PREMIX 50 ML IV SCH ×4 (04:15→21:38)
[2016-12-12] MEDS: CHLORHEXIDINE GLUCONATE 2 % 1 PACK (2 CLOTHS) TOP SCH (04:16)
[2016-12-12] MEDS: DILTIAZEM HCL 30 MG TAB PO SCH ×4 (05:06→23:59)
[2016-12-12 07:22] LABS: ALKALINE PHOSPHATASE 123 U/L (45-117); ALT (GPT) 129 U/L (10-53); ANION GAP 7 MEQ/L (5-15); AST (GOT) 84 U/L (15-37); BICARBONATE 30.5 MEQ/L (21.0-32.0); BLOOD UREA NITROGEN 22 MG/DL (7-18); CHLORIDE 108 MEQ/L (98-107); GLOMERULAR FILTRATION RATE 85 ML/MIN (>89); POTASSIUM 3.3 MEQ/L (3.5-5.1); SODIUM (NA) 145 MEQ/L (136-145); TOTAL BILIRUBIN ADULT 0.6 MG/DL (0.2-1.0)
[2016-12-12] MEDS: SODIUM CHLORIDE 0.9% FLUSH 10 ML FLUSH IV FLUSH SCH ×2 (08:55→21:00)
[2016-12-12] MEDS: PANTOPRAZOLE SODIUM 40 MG VIAL IV SCH (08:55)
[2016-12-12] MEDS: FLUTICASONE PROPIONATE 50 MCG/ACT 16 GM NASAL SPRAY EACH NARE SCH ×2 (08:55→21:37)
[2016-12-12] MEDS: DOCUSATE SODIUM 50 MG/SENNA 8.6 MG TAB PO SCH (08:56)
[2016-12-12] MEDS: MEMANTINE HCL 10 MG TAB PO SCH ×2 (08:56→21:37)
[2016-12-12] MEDS: LACTOBACILLUS ACIDOPHILUS TAB PO SCH ×2 (08:56→21:37)
[2016-12-12] MEDS: RIVAROXABAN 10 MG TAB PO SCH (08:56)
[2016-12-12] MEDS: CITALOPRAM HYDROBROMIDE 20 MG TAB PO SCH (08:56)
--- NOTE | 2016-12-12 09:45 | HHI.PR ---
Subjective Remarks Follow-up acute toxic metabolic encephalopathy/A. fib with RVR/UTI and now 1 positive blood culture 12/10/16-patient seen and examined, she is having multiple loose stools. Denies any chest pain or shortness of breath. Afebrile however low BP. She has now 1 positive blood culture. Patient is pleasantly confused. Per nurse report, she has some difficulty with swallowing her medications this morning. 12/11/16-patient seen and examined, now with improving diarrhea, passed swallow eval. Pleasantly confused and no acute event overnight 12/12/16-patient seen and examined; confused but pleasant, afebrile. Improving diarrheal episode Objective Vitals Vital Signs Date Time Temp Pulse Resp B/P Pulse Ox O2 Delivery O2 Flow Rate FiO2 12/12/16 08:00 56 12/12/16 08:00 98.6 56 18 167/71 99 12/12/16 07:56 97 12/12/16 07:00 51 132/63 98 12/12/16 06:00 58 12/12/16 04:00 52 12/12/16 04:00 98.4 52 20 143/64 99 12/12/16 02:00 55 12/12/16 00:00 54 12/12/16 00:00 98.6 56 20 160/72 99 12/11/16 22:00 51 12/11/16 21:01 98 Nasal Cannula 2.00 12/11/16 20:00 62 12/11/16 20:00 98.8 62 20 165/70 87 12/11/16 18:00 52 12/11/16 17:00 52 97 12/11/16 16:00 70 12/11/16 16:00 61 152/70 92 12/11/16 15:00 54 96 12/11/16 14:00 68 12/11/16 14:00 52 98 12/11/16 13:00 64 96 12/11/16 12:01 55 133/59 95 12/11/16 12:00 54 96 12/11/16 11:00 61 95 12/11/16 10:00 60 12/11/16 10:00 59 97 I/O 12/11/16 12/11/16 12/11/16 12/12/16 12/12/16 12/12/16 07:00 15:00 23:00 07:00 15:00 23:00 Intake Total 147 ml 694 ml 453 ml 573 ml Output Total 275 ml 400 ml 200 ml 200 ml Balance -128 ml 294 ml 253 ml 373 ml IV Total 147 ml 694 ml 453 ml 573 ml Output Urine Total 275 ml 400 ml 200 ml 200 ml # Bowel Movements 2 3 Result Diagram: 12/11/16 0555 12/12/16 0613 Imaging Last Impressions Chest X-Ray 12/10/16 0600 Signed Impressions: Service Date/Time: Saturday, December 10, 2016 04:05 - CONCLUSION: No acute disease. Kev Moses MD Lung Scan-V Nuclear Medicine 12/09/16 0000 Signed Impressions: Service Date/Time: Friday, December 09, 2016 16:24 - CONCLUSION: 1. Low probability of pulmonary embolism Max Coreas MD Liver Ultrasound 12/09/16 0000 Signed Impressions: Service Date/Time: Friday, December 09, 2016 10:57 - CONCLUSION: 1. The common duct is at the upper limits of normal in size. Examination is otherwise within normal limits. Micah Troncoso MD Abdomen/Pelvis CT 12/08/16 0000 Signed Impressions: Service Date/Time: Thursday, December 08, 2016 20:52 - CONCLUSION: 1. Infrarenal abdominal aortic aneurysm measures 3.1 cm. 2. Constipation. 3. No acute inflammatory process. Brian Chase MD Objective Remarks GENERAL: NAD and pleasantly confused SKIN: Warm and dry. HEAD: Normocephalic. EYES: No scleral icterus. No injection or drainage. NECK: Supple, trachea midline. No JVD or lymphadenopathy. CARDIOVASCULAR: Irregular Regular rate and rhythm with II/ MANUELA RESPIRATORY: Breath sounds equal bilaterally. No accessory muscle use. GASTROINTESTINAL: Abdomen soft, non-tender, nondistended. MUSCULOSKELETAL: No cyanosis, or edema. BACK: Nontender without obvious deformity. No CVA tenderness. Procedures None A/P Problem List: (1) Sepsis with multiple organ dysfunction (MOD) ICD Code: A41.9 Status: Acute (2) Urinary tract infection ICD Code: N39.0 Status: Acute (3) BRENT (acute kidney injury) ICD Code: N17.9 Status: Acute (4) Transaminitis ICD Code: R74.0 Status: Acute (5) Displaced fracture of left femoral neck ICD Code: S72.002A Status: Acute (6) Dementia ICD Code: F03.90 Status: Chronic (7) Bacteremia due to Gram-positive bacteria ICD Code: R78.81 Status: Acute (8) Wound of left leg ICD Code: S81.802A Status: Acute (9) Diarrhea ICD Code: R19.7 Status: Acute (10) Dysphagia ICD Code: R13.10 Status: Resolved (11) Hypokalemia ICD Code: E87.6 Status: Acute (12) Leukocytosis ICD Code: D72.829 Status: Resolved Assessment and Plan 86-year-old female with Dementia Depression Continue Celexa 20 mg by mouth daily for depression Continue Namenda 10 mg by mouth twice a day along with Aricept 10 mg daily for dementia Acetaminophen for fever Atrial flutter Elevated troponin 3.1 cm infrarenal AAA Status post 6 mg adenosine for narrow complex tachycardia. Currently on low-dose Cardizem with holding parameters as well as Xarelto 2-D echo with EF of Sigmoid diverticulosis Abdominal pain NOS Elevated transaminases CT abdomen/pelvis revealed sigmoid diverticulosis without diverticulitis. Liver ultrasound noted and reviewed by me with finding of The common duct is at the upper limits of normal in size Hepatitis panel negative Continue to monitor LFTs Protonix for GI prophylaxis Acute kidney injury Improved with IV fluid hydration, monitor BUN and creatinine Leukocytosis-resolved Acute secondary to UTI, continue to monitor CBC Continue with antibiotics Urinary tract infection-Escherichia coli Day #4 Zosyn and switch to by mouth antibiotic on 12/13/16 to complete a total of 7 days course Bacteremia? This appears to be a contaminant Repeat blood culture NTD Continue with above antibiotics Dysphagia Patient passed swallow eval Continue with soft mechanical diet Hypernatremia Resolved with D5 water monitor BMP Hypokalemia Hypophosphatemia Replace electrolytes and monitor Diarrhea Improving C. difficile PCR negative therefore will start antidiarrhea motility agent Recent left hip bipolar hemiarthroplasty by Dr. Santiago previously on Xarelto 10 mg by mouth daily. Left calf wound Appreciate input from wound care nurse Problem Qualifiers (1) Urinary tract infection: Qualified Code: N39.0 - Urinary tract infection with hematuria, site unspecified (2) Dementia: Qualified Code: F03.90 - Dementia without behavioral disturbance, unspecified dementia type Brian Rodriguez MD December 12, 2016 09:45
[2016-12-12] MEDS ORDERED: LOPERAMIDE HCL 2 MG CAP PO PRN (10:00)
[2016-12-12] MEDS ORDERED: DOCUSATE SODIUM 50 MG/SENNA 8.6 MG TAB PO PRN (10:00)
[2016-12-12] MEDS ORDERED: SODIUM CHLOR 0.9% 1000 ML INJ 1,000 ML IV SCH (10:00)
[2016-12-12] MEDS ORDERED: POTASSIUM CHLORIDE 20 MEQ CONTROLLED RELEASE TAB PO ONE (10:00)
[2016-12-12] MEDS: DONEPEZIL HCL 5 MG TAB PO SCH (21:37)
[2016-12-13] VITALS: BP 153/72; PULSE 59; RESP 20; TEMP 96.6; O2SAT 93
[2016-12-13 04:00] VITALS: BP 121/65; PULSE 60; RESP 20; TEMP 95.8; O2SAT 95
[2016-12-13] MEDS: CHLORHEXIDINE GLUCONATE 2 % 1 PACK (2 CLOTHS) TOP SCH (04:00)
[2016-12-13] MEDS: PIPERACIL-TAZO 3.375 GM PREMIX 50 ML IV SCH ×3 (04:16→16:31)
[2016-12-13 04:55] LABS: ALT (GPT) 127 U/L (10-53); ANION GAP 10 MEQ/L (5-15); AST (GOT) 90 U/L (15-37); BICARBONATE 27.3 MEQ/L (21.0-32.0); BLOOD UREA NITROGEN 16 MG/DL (7-18); CHLORIDE 108 MEQ/L (98-107); GLOMERULAR FILTRATION RATE 114 ML/MIN (>89); POTASSIUM 3.1 MEQ/L (3.5-5.1); SODIUM (NA) 145 MEQ/L (136-145)
[2016-12-13 04:58] LABS: ALKALINE PHOSPHATASE 141 U/L (45-117); TOTAL BILIRUBIN ADULT 0.7 MG/DL (0.2-1.0)
--- NOTE | 2016-12-13 07:48 | HHI.PR ---
Subjective Remarks Follow-up acute toxic metabolic encephalopathy/A. fib with RVR/UTI and now 1 positive blood culture 12/10/16-patient seen and examined, she is having multiple loose stools. Denies any chest pain or shortness of breath. Afebrile however low BP. She has now 1 positive blood culture. Patient is pleasantly confused. Per nurse report, she has some difficulty with swallowing her medications this morning. 12/11/16-patient seen and examined, now with improving diarrhea, passed swallow eval. Pleasantly confused and no acute event overnight 12/12/16-patient seen and examined; confused but pleasant, afebrile. Improving diarrheal episode 12/13 - diarrhea improving, denies any abdominal pain, mildly confused, at baseline. Afebrile. Telemetry heart rate in sinus, at high 50s. On Cardizem. No chest pain. Patient says that she did not have any Eagle catheter prior to admission. Objective Vitals Vital Signs Date Time Temp Pulse Resp B/P Pulse Ox O2 Delivery O2 Flow Rate FiO2 12/13/16 04:00 95.8 60 20 121/65 95 12/13/16 00:00 96.6 59 20 153/72 93 12/12/16 20:14 57 12/12/16 20:00 96.6 60 20 161/58 98 12/12/16 16:00 96.7 64 20 141/67 95 12/12/16 14:50 97.6 56 20 150/65 95 12/12/16 12:00 54 12/12/16 12:00 98.0 54 14 136/63 99 12/12/16 10:00 54 12/12/16 08:00 56 12/12/16 08:00 98.6 56 18 167/71 99 12/12/16 07:56 97 I/O 12/12/16 12/12/16 12/12/16 12/13/16 12/13/16 12/13/16 07:00 15:00 23:00 07:00 15:00 23:00 Intake Total 573 ml 647 ml 384 ml 480 ml Output Total 200 ml 200 ml 200 ml 250 ml Balance 373 ml 447 ml 184 ml 230 ml Intake Oral 0 ml 480 ml IV Total 573 ml 647 ml 384 ml Output Urine Total 200 ml 200 ml 200 ml 250 ml # Bowel Movements 3 1 Result Diagram: 12/11/16 0555 12/13/16 0342 Objective Remarks GENERAL: NAD and pleasantly confused SKIN: Warm and dry. HEAD: Normocephalic. EYES: No scleral icterus. No injection or drainage. NECK: Supple, trachea midline. No JVD or lymphadenopathy. CARDIOVASCULAR: Regular rate and rhythm, 2/6 murmur. Borderline bradycardic around 60s. Eagle catheter with clear yellow urine. RESPIRATORY: Breath sounds equal bilaterally. No accessory muscle use. GASTROINTESTINAL: Abdomen soft, non-tender, nondistended. MUSCULOSKELETAL: No cyanosis, or edema. BACK: Nontender without obvious deformity. No CVA tenderness. Procedures None A/P Problem List: (1) Sepsis with multiple organ dysfunction (MOD) ICD Code: A41.9 Status: Acute (2) Urinary tract infection ICD Code: N39.0 Status: Acute (3) BRENT (acute kidney injury) ICD Code: N17.9 Status: Acute (4) Transaminitis ICD Code: R74.0 Status: Acute (5) Displaced fracture of left femoral neck ICD Code: S72.002A Status: Acute (6) Dementia ICD Code: F03.90 Status: Chronic (7) Bacteremia due to Gram-positive bacteria ICD Code: R78.81 Status: Acute (8) Wound of left leg ICD Code: S81.802A Status: Acute (9) Diarrhea ICD Code: R19.7 Status: Acute (10) Dysphagia ICD Code: R13.10 Status: Resolved (11) Hypokalemia ICD Code: E87.6 Status: Acute (12) Leukocytosis ICD Code: D72.829 Status: Resolved Assessment and Plan This is a 86-year-old female initially admitted with altered mental status Dementia/Depression Continue Celexa 20 mg by mouth daily for depression Continue Namenda 10 mg by mouth twice a day along with Aricept 10 mg daily for dementia Atrial flutter Elevated troponin 3.1 cm infrarenal AAA Status post 6 mg adenosine for narrow complex tachycardia. Currently on low- dose Cardizem, heart rate controlled, regular rhythm, initial troponin mildly elevated, likely demand mediated. Patient denies any chest pain, no ischemic changes. Continue Xarelto, follow-up with cardiology as outpatient. Patient is DNR/DNI, with likely not benefit from any invasive cardiac workup like cardiac catheterization due to old age. Continue medical management with Cardizem and Xarelto. Sigmoid diverticulosis Abdominal pain NOS Elevated transaminases CT abdomen/pelvis revealed sigmoid diverticulosis without diverticulitis. Liver ultrasound reviewed by me with finding of The common duct is at the upper limits of normal in size Hepatitis panel negative Continue to monitor LFTs , trending down Protonix for GI prophylaxis Acute kidney injury Resolved, monitor BUN and creatinine Urinary tract infection-Escherichia coli Day #5 Zosyn and switch to by mouth antibiotic, continue Macrobid, finished 10 days of treatment. Bacteremia? This appears to be a contaminant Repeat blood culture NTD Continue with above antibiotics, leukocytosis resolved, afebrile. Repeat blood culture remains negative. Dysphagia Patient passed swallow eval Continue with soft mechanical diet Hypernatremia Resolved with D5 water monitor BMP Hypokalemia Hypophosphatemia Replace electrolytes and monitor Diarrhea Improving C. difficile PCR negative, likely antibiotic associated, continue Lactinex. Recent left hip bipolar hemiarthroplasty by Dr. Santiago previously on Xarelto 10 mg by mouth daily. Left calf wound Appreciate input from wound care nurse Discharge Planning Discharge to SNF Problem Qualifiers (1) Urinary tract infection: Qualified Code: N39.0 - Urinary tract infection with hematuria, site unspecified (2) Dementia: Qualified Code: F03.90 - Dementia without behavioral disturbance, unspecified dementia type Kenneth Hancock MD December 13, 2016 07:48
[2016-12-13 08:00] VITALS: BP 125/81; PULSE 57; PULSE 58; RESP 19; TEMP 97.1; O2SAT 95
[2016-12-13] MEDS ORDERED: POTASSIUM CHLOR 20 MEQ PREMIX 100 ML IV ONE (08:00)
[2016-12-13] MEDS ORDERED: POTASSIUM CHLORIDE 25 MEQ EFFERVESCENT TAB PO ONE (08:00)
[2016-12-13] MEDS ORDERED: LACT PO (08:11)
[2016-12-13] MEDS ORDERED: MACR100C2 PO (08:11)
[2016-12-13] MEDS ORDERED: HYDR-3288 PO (08:11)
[2016-12-13] MEDS ORDERED: DILT31TA PO (08:11)
[2016-12-13] MEDS: MEMANTINE HCL 10 MG TAB PO SCH (08:28)
[2016-12-13] MEDS: RIVAROXABAN 10 MG TAB PO SCH (08:28)
[2016-12-13] MEDS: DILTIAZEM HCL 30 MG TAB PO SCH ×3 (08:28→16:31)
[2016-12-13] MEDS: CITALOPRAM HYDROBROMIDE 20 MG TAB PO SCH (08:28)
[2016-12-13] MEDS: LACTOBACILLUS ACIDOPHILUS TAB PO SCH (08:28)
[2016-12-13] MEDS: FLUTICASONE PROPIONATE 50 MCG/ACT 16 GM NASAL SPRAY EACH NARE SCH (08:36)
[2016-12-13] MEDS: PANTOPRAZOLE SODIUM 40 MG VIAL IV SCH (08:39)
[2016-12-13] MEDS: SODIUM CHLORIDE 0.9% FLUSH 10 ML FLUSH IV FLUSH SCH (08:39)
--- NOTE | 2016-12-13 09:01 | HHI.DS ---
Discharge Summary Admission Date December 08, 2016 at 21:55 Discharge Date: December 13, 2016 Admitting Diagnosis SEPSIS, multisystem organ dysfunction, UTI (1) Sepsis with multiple organ dysfunction (MOD) ICD Code: A41.9 Diagnosis: Principal (2) Urinary tract infection ICD Code: N39.0 Diagnosis: Principal (3) BRENT (acute kidney injury) ICD Code: N17.9 Diagnosis: Secondary (4) Transaminitis ICD Code: R74.0 Diagnosis: Secondary (5) Displaced fracture of left femoral neck ICD Code: S72.002A Diagnosis: Secondary (6) Dementia ICD Code: F03.90 Diagnosis: Secondary (7) Wound of left leg ICD Code: S81.802A Diagnosis: Secondary (8) Diarrhea ICD Code: R19.7 Diagnosis: Secondary (9) Dysphagia ICD Code: R13.10 Diagnosis: Secondary (10) Hypokalemia ICD Code: E87.6 Diagnosis: Secondary (11) Atrial flutter, paroxysmal ICD Code: I48.92 Diagnosis: Principal Procedures None Brief History - From Admission 86-year-old female who was here recently for hip replacement, is sent by her rehabilitation facility for evaluation of nausea and vomiting. Patient has a history of dementia and is a poor historian. Also documented information was gathered from the chart. Per the rehabilitation facility patient had one episode of nausea and vomiting earlier today and was given Zofran and did not have a recurrence. Family requested patient be brought to the emergency room for evaluation. In the emergency department she was found to have a lactic acid 4, elevated creatinine urine, as well as a heart rate at 140s. The concern was tobacco developing abdominal sepsis, however CT scan of the abdomen is negative. CBC/BMP: 12/11/16 0555 12/13/16 0342 Significant Findings Laboratory Tests Test 12/11/16 12/12/16 12/13/16 05:55 06:13 03:42 Red Blood Count 3.44 MIL/MM3 (4.00-5.30) Hemoglobin 10.4 GM/DL (11.6-15.3) Hematocrit 32.0 % (35.0-46.0) Platelet Count 141 TH/MM3 (150-450) Neutrophils (%) (Auto) 85.2 % (16.0-70.0) Lymphocytes (%) (Auto) 8.8 % (9.0-44.0) Neutrophils # (Auto) 8.1 TH/MM3 (1.8-7.7) Lymphocytes # (Auto) 0.8 TH/MM3 (1.0-4.8) Sodium Level 151 MEQ/L (136-145) Potassium Level 3.2 MEQ/L 3.3 MEQ/L 3.1 MEQ/L (3.5-5.1) (3.5-5.1) (3.5-5.1) Chloride Level 114 MEQ/L 108 MEQ/L 108 MEQ/L (98-107) (98-107) (98-107) Blood Urea Nitrogen 35 MG/DL (7-18) 22 MG/DL (7-18) Estimat Glomerular Filtration 62 ML/MIN (>89) 85 ML/MIN (>89) Rate Calcium Level 8.2 MG/DL 8.3 MG/DL 8.4 MG/DL (8.5-10.1) (8.5-10.1) (8.5-10.1) Phosphorus Level 1.8 MG/DL 1.6 MG/DL (2.5-4.9) (2.5-4.9) Aspartate Amino Transf 102 U/L (15-37) 84 U/L (15-37) 90 U/L (15-37) (AST/SGOT) Alanine Aminotransferase 141 U/L (10-53) 129 U/L (10-53) 127 U/L (10-53) (ALT/SGPT) Total Protein 5.3 GM/DL 5.1 GM/DL 5.4 GM/DL (6.4-8.2) (6.4-8.2) (6.4-8.2) Albumin 1.8 GM/DL 1.7 GM/DL 1.8 GM/DL (3.4-5.0) (3.4-5.0) (3.4-5.0) Random Glucose 135 MG/DL (74-106) Alkaline Phosphatase 123 U/L 141 U/L (45-117) (45-117) PE at Discharge GENERAL: NAD and pleasantly confused SKIN: Warm and dry. HEAD: Normocephalic. EYES: No scleral icterus. No injection or drainage. NECK: Supple, trachea midline. No JVD or lymphadenopathy. CARDIOVASCULAR: Regular rate and rhythm, 2/6 murmur. Borderline bradycardic around 60s. Eagle catheter with clear yellow urine. RESPIRATORY: Breath sounds equal bilaterally. No accessory muscle use. GASTROINTESTINAL: Abdomen soft, non-tender, nondistended. MUSCULOSKELETAL: No cyanosis, or edema. BACK: Nontender without obvious deformity. No CVA tenderness. Hospital Course This is a 86-year-old female initially admitted with altered mental status. Patient was also found to have atrial flutter which improved with adenosine. Patient was started on low dose Cardizem. Initial troponin mildly elevated likely demand mediated. Patient denies any chest pain. Cardiology was consulted, recommendation was to start Xarelto. Patient also elevated transaminases, has history of sigmoid diverticulosis, CT scan of the abdomen revealed diverticulosis without diverticulitis. LFTs improved, this needs to be followed up as outpatient. Patient also presented with acute renal injury which resolved with volume resuscitation. Patient was also found to have UTI, started on Zosyn, urine culture grew Escherichia coli, antibiotics switched to Macrobid to finish 10 days of treatment. Finally there was a questionable bacteremia, antibiotics started as above, repeat blood culture remained negative. This was thought to be contaminant. Patient was discharged to geriatric continue therapy after orthopedic surgery. He will remain on Xarelto. Pt Condition on Discharge: Good Discharge Disposition: Discharge to SNF Discharge Time: > 30 minutes Discharge Instructions DIET: Follow Instructions for: Heart Healthy Diet Activities you can perform: Regular-No Restrictions Follow up Referrals: Cardiology - 4 Weeks SNF/[facility]/ - 2-3 Days New Medications: Nitrofurantoin Monohydrate Macrocrystals (Macrobid) 100 Mg Cap 100 MG PO BID Infection #14 Ref 0 CAP Diltiazem (Cardizem) 30 Mg Tab 30 MG PO Q6HR HTN #120 TAB Lactobacillus Acidophilus (Acidophilus/l-Sporogenes) 1 Tab Tab 1 TAB PO Q12HR probiotic #14 TAB Continued Medications: Bisacodyl Supp (Bisac-Evac Supp) 10 Mg Supp 10 MG RECTAL DAILY PRN CONSTIPATION Days 10 Ref 0 SUPP Calcium Carbonate-Vitamin D (Calcium 600+D 200) 600-200 Mg-Unit Tab 1 TAB PO BID Nutritional Supplement Days 30 Ref 0 TAB Cholecalciferol (Vitamin D3) 2,000 Unit Cap 2000 UNITS PO DAILY Nutritional Supplement #56 Ref 0 CAP Citalopram (Citalopram) 20 Mg Tab 20 MG PO DAILY Control Depression #30 Ref 0 TAB Donepezil (Donepezil) 10 Mg Tab 10 MG PO HS Dementia #30 Ref 0 TAB Ergocalciferol (Ergocalciferol) 50,000 Unit Cap 01375 UNITS PO Q7D Nutritional Supplement #56 CAP Fluticasone Nasal [place] (Fluticasone Nasal [place]) 50 Mcg/Act Naspr 50 MCG EACH NARE BID 50 mcg/spray Allergy Management #1 Ref 0 BOTTLE Hydrocodone-Acetaminophen ([place]) 7.5-325 mg Tab 1 TAB PO Q4H PRN PAIN #5 Ref 0 TAB (This prescription has been renewed) Memantine (Memantine) 10 Mg Tab 10 MG PO BID Alzheimer's Dementia Ref 0 TAB Rivaroxaban (Xarelto) 10 Mg Tab 10 MG PO DAILY Blood Clot Prevention #14 Ref 0 TAB Discontinued Medications: Calcium Carbonate-Vitamin D (Calcium 600+D 200) 600-200 Mg-Unit Tab 1 TAB PO BID Nutritional Supplement Ref 0 TAB Kenneth Hancock MD December 13, 2016 09:01 Appreciate input from wound care nurse Pt Condition on Discharge: Good Discharge Disposition: Discharge to SNF Discharge Time: > 30 minutes Discharge Instructions DIET: Follow Instructions for: Heart Healthy Diet Activities you can perform: Regular-No Restrictions Follow up Referrals: Cardiology - 4 Weeks SNF/[facility]/ - 2-3 Days New Medications: Nitrofurantoin Monohydrate Macrocrystals (Macrobid) 100 Mg Cap 100 MG PO BID Infection #14 Ref 0 CAP Diltiazem (Cardizem) 30 Mg Tab 30 MG PO Q6HR HTN #120 TAB Lactobacillus Acidophilus (Acidophilus/l-Sporogenes) 1 Tab Tab 1 TAB PO Q12HR probiotic #14 TAB Continued Medications: Bisacodyl Supp (Bisac-Evac Supp) 10 Mg Supp 10 MG RECTAL DAILY PRN CONSTIPATION Days 10 Ref 0 SUPP Calcium Carbonate-Vitamin D (Calcium 600+D 200) 600-200 Mg-Unit Tab 1 TAB PO BID Nutritional Supplement Days 30 Ref 0 TAB Cholecalciferol (Vitamin D3) 2,000 Unit Cap 2000 UNITS PO DAILY Nutritional Supplement #56 Ref 0 CAP Citalopram (Citalopram) 20 Mg Tab 20 MG PO DAILY Control Depression #30 Ref 0 TAB Donepezil (Donepezil) 10 Mg Tab 10 MG PO HS Dementia #30 Ref 0 TAB Ergocalciferol (Ergocalciferol) 50,000 Unit Cap 65605 UNITS PO Q7D Nutritional Supplement #56 CAP Fluticasone Nasal [place] (Fluticasone Nasal [place]) 50 Mcg/Act Naspr 50 MCG EACH NARE BID 50 mcg/spray Allergy Management #1 Ref 0 BOTTLE Hydrocodone-Acetaminophen ([place]) 7.5-325 mg Tab 1 TAB PO Q4H PRN PAIN #5 Ref 0 TAB (This prescription has been renewed) Memantine (Memantine) 10 Mg Tab 10 MG PO BID Alzheimer's Dementia Ref 0 TAB Rivaroxaban (Xarelto) 10 Mg Tab 10 MG PO DAILY Blood Clot Prevention #14 Ref 0 TAB Discontinued Medications: Calcium Carbonate-Vitamin D (Calcium 600+D 200) 600-200 Mg-Unit Tab 1 TAB PO BID Nutritional Supplement Ref 0 TAB Kenneth Hancock MD December 13, 2016 09:01
[2016-12-13 11:47] VITALS: BP 100/60; PULSE 65; RESP 18; TEMP 97.4; O2SAT 95
== END 2016-12-13 17:40 | DRG 871 ==
LOC: NEPC 18:35 → NEDA 21:55 → HIMN 12-09 02:15 → N07A 12-12 14:02
PROVIDERS: ADMIT Hospitalist; ATTEND Hospitalist
DX: A41.9 Sepsis, unspecified organism (principal); G92 Toxic encephalopathy; N17.9 Acute kidney failure, unspecified; E87.0 Hyperosmolality and hypernatremia; I48.92 Unspecified atrial flutter; R13.10 Dysphagia, unspecified; E83.39 Other disorders of phosphorus metabolism; N39.0 Urinary tract infection, site not specified; F03.90 Unspecified dementia, unspecified severity, without behavioral disturbance, psychotic disturbance, mood disturbance, and anxiety; I71.4 Abdominal aortic aneurysm, without rupture; K59.00 Constipation, unspecified; R65.20 Severe sepsis without septic shock; K57.30 Diverticulosis of large intestine without perforation or abscess without bleeding; R74.0 Nonspecific elevation of levels of transaminase and lactic acid dehydrogenase [LDH]; E87.6 Hypokalemia; R74.8 Abnormal levels of other serum enzymes; F32.9 Major depressive disorder, single episode, unspecified; Z79.01 Long term (current) use of anticoagulants; Z96.642 Presence of left artificial hip joint
CPT/HCPCS: 36600; 51702; 71010; 74176; 76705; 76937; 78582; 80048; 80053; 80074; 80162; 81001; 82550; 82552; 82805; 83605; 83690; 83735; 84100; 84439; 84443; 84481; 84484; 85025; 85610; 85730; 87040; 87077; 87086; 87186; 87205; 87493; 87641; 93005; 93306; 96374; 96375; A9540; A9567; C9113; J0153; J1160; J1644; J2405; J2543; J3370; J3475; J3480; J7030; J7050; J7070

== ENCOUNTER 2016-12-18 11:03 | Observation (INO) | payer MEDICARE, OTHER ==
[~2016-12-18] VITALS: Ht 157.5 cm; Wt 59.0 kg
[2016-12-18] VITALS (8 sets, daily range): BP systolic 90–168; BP diastolic 49–73; PULSE 62–146; RESP 16–20; TEMP 97.6–98.2; O2SAT 97–100
[~2016-12-18 11:03] MED LIST changes: +DILT31TA PO; +LACT PO; +MACR100C2 PO
[2016-12-18] MEDS ORDERED: SODIUM CHLORIDE 0.9% FLUSH 10 ML FLUSH IVF PRN (11:30)
[2016-12-18] MEDS ORDERED: DILTIAZEM HCL 25 MG/5 ML VIAL IV ONE ×2 (11:30→13:15)
[2016-12-18] MEDS ORDERED: SODIUM CHLORID 0.9% 500 ML INJ 500 ML IV ONE ×2 (11:30→12:30)
[2016-12-18 11:57] LABS: AUTOMATED NEUTROPHIL # 8.9 TH/MM3 (1.8-7.7); BASOPHIL # 0.1 TH/MM3 (0-0.2); BASOPHIL % 0.5 % (0.0-2.0); EOSINOPHIL # 0.1 TH/MM3 (0-0.4); EOSINOPHIL % 0.9 % (0.0-4.0); HEMATOCRIT 41.6 % (35.0-46.0); HEMO FLAGS DIFF FINAL; LYMPH % 11.9 % (9.0-44.0); LYMPHOCYTE # 1.3 TH/MM3 (1.0-4.8); MEAN CELL VOLUME 91.7 FL (80.0-100.0); MEAN CORPUSCULAR HEMOGLOBIN 29.9 PG (27.0-34.0); MEAN CORPUSCULAR HGB CONC 32.6 % (32.0-36.0); NEUT % 79.7 % (16.0-70.0); PLATELET COUNT 224 TH/MM3 (150-450); RED BLOOD COUNT 4.54 MIL/MM3 (4.00-5.30); RED CELL DISTRIBUTION WIDTH 14.1 % (11.6-17.2); WHITE BLOOD COUNT 11.2 TH/MM3 (4.0-11.0)
[2016-12-18 12:02] LABS: BACTERIA, URINE OCC /hpf; BLOOD, URINE NEG (NEG); COMMENT (UR) CATH-CULTURE IND; CULTURE IF INDICATED CATH CULTURE IND; GLUCOSE,URINE TRACE mg/dL (NEG); HYALINE CAST, URINE 19 /lpf (RARE); KETONE, URINE 40 mg/dL (NEG); MUCUS URINE MANY /lpf (OCC); NITRITE,URINE NEG (NEG); PH, URINE 5.5 (5.0-8.5); SQUAMOUS EPITHELIAL CELL URINE 3 /hpf (0-5); TRANSITIONAL EPI CELLS, URINE <1 /hpf; URINE COLOR DARK-YELLOW (YELLW/STRAW)
--- NOTE | 2016-12-18 12:02 | PD ---
HPI Chief Complaint: Chest Pain Time Seen by Provider: 11:10 Travel History International Travel<30 days: No Contact w/Intl Traveler<30days: No Traveled to known affect area: No History of Present Illness HPI Patient is a 86-year-old female presenting from [facility] of chest pain. Per EMS report patient had experienced chest pain with radiation to the left arm during physical therapy today. At that time she became diaphoretic as well. By the time EMS arrived on scene she was no longer complaining of chest pain. Patient is currently pain-free on arrival. She does have a history of dementia and is oriented to self only. Patient is currently on Macrobid for urinary tract infection. She is on Xarelto. PFSH Past Medical History Hx Anticoagulant Therapy: Yes (xarelto) Atrial Fibrillation: Yes Depression: Yes Dementia: Yes Genitourinary: Yes (uti) Neurologic: Yes (SPINAL MENINGITIS CHILD) Tetanus Vaccination: Unknown Menopausal: Yes Past Surgical History Joint Replacement: Yes (L hip) Social History Alcohol Use: No Tobacco Use: No Substance Use: No Allergies-Medications (Allergen,Severity, Reaction): Coded Allergies: No Known Allergies (Unverified , 12/08/16) Reported Meds & Prescriptions Reported Meds & Active Scripts Active Macrobid (Nitrofurantoin Monoh/Nitrofur Macro) 100 Mg Cap 100 Mg PO BID Acidophilus/l-Sporogenes (Lactobacillus Acidophilus) 1 Tab Tab 1 Tab PO Q12HR Cardizem (Diltiazem HCl) 30 Mg Tab 30 Mg PO Q6HR [place] (Hydrocodone-Acetaminophen) 7.5-325 mg Tab 1 Tab PO Q4H PRN Bisac-Evac Supp (Bisacodyl) 10 Mg Supp 10 Mg RECTAL DAILY PRN 10 Days Calcium 600+D 200 (Calcium Carbonate-Vitamin D) 600-200 Mg-Unit Tab 1 Tab PO BID 30 Days Vitamin D3 (Cholecalciferol) 2,000 Unit Cap 2,000 Units PO DAILY Ergocalciferol 50,000 Unit Cap 50,000 Units PO Q7D Xarelto (Rivaroxaban) 10 Mg Tab 10 Mg PO DAILY Walker/Adult/Folding (Device) 1 Mis Mis 1 Ea .ROUTE DIRECTED Reported Citalopram (Citalopram Hydrobromide) 20 Mg Tab 20 Mg PO DAILY Fluticasone Nasal [place] 50 Mcg/Act Naspr 50 Mcg EACH NARE BID 50 mcg/spray Memantine 10 Mg Tab 10 Mg PO BID Donepezil 10 Mg Tab 10 Mg PO HS Review of Systems ROS Limitations: Poor Historian Except as stated in HPI: all other systems reviewed are Neg Physical Exam Narrative GENERAL: Well-developed, well-nourished, alert elderly female. Resting comfortably in no acute distress. Son at bedside. SKIN: Focused skin assessment warm/dry. HEAD: Atraumatic. Normocephalic. EYES: Pupils equal and round. No scleral icterus. No injection or drainage. ENT: No nasal bleeding or discharge. Mucous membranes pink and moist. NECK: Trachea midline. No JVD. CARDIOVASCULAR: Tachycardic, irregularly irregular. No murmur appreciated. RESPIRATORY: No accessory muscle use. Clear to auscultation. Breath sounds equal bilaterally. GASTROINTESTINAL: Abdomen soft, non-tender, nondistended. Hepatic and splenic margins not palpable. MUSCULOSKELETAL: No obvious deformities. No clubbing. No cyanosis. No edema. NEUROLOGICAL: Awake and alert, oriented to self only. No obvious cranial nerve deficits. Motor grossly within normal limits. Normal speech. PSYCHIATRIC: Appropriate mood and affect; insight and judgment impaired. Data Data Last Documented VS Vital Signs Date Time Temp Pulse Resp B/P Pulse Ox O2 Delivery O2 Flow Rate FiO2 12/18/16 11:35 97 Room Air 12/18/16 11:21 145 20 12/18/16 11:08 98.2 Orders Electrocardiogram (12/18/16 11:16) Ckmb (Isoenzyme) Profile (12/18/16 11:16) Complete Blood Count With Diff (12/18/16 11:16) Comprehensive Metabolic Panel (12/18/16 11:16) Magnesium (Mg) (12/18/16 11:16) Prothrombin Time / Inr (Pt) (12/18/16 11:16) Act Partial Throm Time (Ptt) (12/18/16 11:16) Troponin I (12/18/16 11:16) Chest, Single Ap (12/18/16 11:16) Ecg Monitoring (12/18/16 11:16) Bilateral Bp Monitoring (12/18/16 11:16) Iv Access Insert/Monitor (12/18/16 11:16) Oximetry (12/18/16 11:16) Oxygen Administration (12/18/16 11:16) Sodium Chloride 0.9% Flush (Ns Flush) (12/18/16 11:30) Thyroid Stimulating Hormone (12/18/16 11:16) Free Thyroxine (T4) (12/18/16 11:16) Diltiazem Inj (Cardizem Inj) (12/18/16 11:30) Urinalysis - C+S If Indicated (12/18/16 11:18) Cath For Specimen (12/18/16 11:18) Sodium Chlorid 0.9% 500 Ml Inj (Ns 500 M (12/18/16 11:30) Urine Culture (12/18/16 11:45) Lactic Acid (12/18/16 12:12) Piperacil-Tazo 3.375 Gm Premix (Zosyn 3. (12/18/16 12:30) Piperacil-Tazo 4.5 Gm Premix (Zosyn 4.5 (12/18/16 12:30) Sodium Chlorid 0.9% 500 Ml Inj (Ns 500 M (12/18/16 12:30) Lactic Acid Sepsis Protocol (12/18/16 12:28) Blood Culture (12/18/16 12:28) Diltiazem Inj (Cardizem Inj) (12/18/16 13:15) Admit Order (Ed Use Only) (12/18/16 13:53) Cholecalciferol (Vitamin D3) (12/19/16 09:00) Citalopram (Celexa) (12/19/16 09:00) Diltiazem (Cardizem) (12/18/16 18:00) Donepezil (Aricept) (12/18/16 21:00) Ergocalciferol (Drisdol) (12/18/16 14:00) Lactobacillus Acidophilus (Lactinex) (12/18/16 21:00) Memantine (Namenda) (12/18/16 21:00) Rivaroxaban (Xarelto) (12/19/16 09:00) Labs Laboratory Tests Test 12/18/16 12/18/16 11:45 12:31 White Blood Count 11.2 TH/MM3 Red Blood Count 4.54 MIL/MM3 Hemoglobin 13.6 GM/DL Hematocrit 41.6 % Mean Corpuscular Volume 91.7 FL Mean Corpuscular Hemoglobin 29.9 PG Mean Corpuscular Hemoglobin 32.6 % Concent Red Cell Distribution Width 14.1 % Platelet Count 224 TH/MM3 Mean Platelet Volume 9.7 FL Neutrophils (%) (Auto) 79.7 % Lymphocytes (%) (Auto) 11.9 % Monocytes (%) (Auto) 7.0 % Eosinophils (%) (Auto) 0.9 % Basophils (%) (Auto) 0.5 % Neutrophils # (Auto) 8.9 TH/MM3 Lymphocytes # (Auto) 1.3 TH/MM3 Monocytes # (Auto) 0.8 TH/MM3 Eosinophils # (Auto) 0.1 TH/MM3 Basophils # (Auto) 0.1 TH/MM3 CBC Comment DIFF FINAL Differential Comment Prothrombin Time 15.4 SEC Prothromb Time International 1.4 RATIO Ratio Activated Partial 36.2 SEC Thromboplast Time Urine Color DARK-YELLOW Urine Turbidity HAZY Urine pH 5.5 Urine Specific [place] 1.017 Urine Protein 30 mg/dL Urine Glucose (UA) TRACE mg/dL Urine Ketones 40 mg/dL Urine Occult Blood NEG Urine Nitrite NEG Urine Bilirubin NEG Urine Urobilinogen 2.0 MG/DL Urine Leukocyte Esterase TRACE Urine RBC 5 /hpf Urine WBC 13 /hpf Urine Squamous Epithelial 3 /hpf Cells Urine Transitional Epithelial <1 /hpf Cells Urine Bacteria OCC /hpf Urine Hyaline Casts 19 /lpf Urine Mucus MANY /lpf Microscopic Urinalysis Comment CATH-CULTURE IND Sodium Level 140 MEQ/L Potassium Level 3.2 MEQ/L Chloride Level 100 MEQ/L Carbon Dioxide Level 32.0 MEQ/L Anion Gap 8 MEQ/L Blood Urea Nitrogen 16 MG/DL Creatinine 0.81 MG/DL Estimat Glomerular Filtration 67 ML/MIN Rate Random Glucose 85 MG/DL Calcium Level 8.9 MG/DL Magnesium Level 1.8 MG/DL Total Bilirubin 0.6 MG/DL Aspartate Amino Transf 27 U/L (AST/SGOT) Alanine Aminotransferase 43 U/L (ALT/SGPT) Alkaline Phosphatase 121 U/L Total Creatine Kinase 32 U/L Troponin I 0.02 NG/ML Total Protein 6.7 GM/DL Albumin 2.5 GM/DL Free Thyroxine 1.55 NG/DL Thyroid Stimulating Hormone 1.130 uIU/ML 3rd Gen Lactic Acid Level 2.0 mmol/L [facility] Medical Decision Making Medical Screen Exam Complete: Yes Emergency Medical Condition: Yes Interpretation(s) Vital Signs Date Time Temp Pulse Resp B/P Pulse Ox O2 Delivery O2 Flow Rate FiO2 12/18/16 11:21 145 20 Room Air 12/18/16 11:08 98.2 146 20 Differential Diagnosis Sepsis versus cardiac arrhythmia versus acute coronary syndrome versus electrolyte abnormality versus thyroid disorder versus other Narrative Course Patient is an 86-year-old female presenting via EMS for evaluation of chest pain that occurred while performing physical therapy in rehabilitation today. Labs and imaging ordered and pending. IV access established, patient placed on telemetry monitoring and continuous pulse oximetry. Initial EKG shows a flutter with rapid ventricular response with a rate of 145. BP is 109/51. CBC with a white count 11.2 with left shift, compared with prior on 12/11/16 her white blood cell count was 9.6. Chemistry with a potassium of 3.2, renal function is normal TSH and free T4 are unremarkable Urinalysis obtained via straight catheter shows elevated white blood cells, bacteria, mucus, red blood cells. Zosyn 3.375 IV X 1 dose ordered. Troponin is normal at less than 0.02 Patient similar presentation on December 08 and was admitted with sepsis. Lactic acid is 2.0 [facility] PAGED FOR ADMIT. Dr. Harper accepted admission, orders placed. Sepsis Criteria SIRS Criteria (2 or more): Heart rate over 90 Sepsis Criteria (SIRS+source): Infect source susp/known Severe Sepsis (+one): Hypotension Diagnosis Primary Impression: Atrial fibrillation with RVR Additional Impressions: Urinary tract infection Qualified Code: N39.0 - Urinary tract infection with hematuria, site unspecified Hypokalemia Admitting Information Admitting Physician Requests: Admit Condition: Stable Josi Azul December 18, 2016 12:02
[2016-12-18 12:03] LABS: APTT (PATIENT) 36.2 SEC (24.3-30.1); INTERNATIONAL NORMALIZED RATIO 1.4 RATIO; PROTHROMBIN TIME - PATIENT 15.4 SEC (9.8-11.6)
[2016-12-18 12:12] LABS: ANION GAP 8 MEQ/L (5-15); AST (GOT) 27 U/L (15-37); BLOOD UREA NITROGEN 16 MG/DL (7-18); CHLORIDE 100 MEQ/L (98-107); GLOMERULAR FILTRATION RATE 67 ML/MIN (>89); MAGNESIUM 1.8 MG/DL (1.5-2.5); POTASSIUM 3.2 MEQ/L (3.5-5.1); SODIUM (NA) 140 MEQ/L (136-145)
[2016-12-18 12:21] LABS: ALKALINE PHOSPHATASE 121 U/L (45-117); ALT (GPT) 43 U/L (10-53); FREE T4 1.55 NG/DL (0.76-1.46); TOTAL BILIRUBIN ADULT 0.6 MG/DL (0.2-1.0)
[2016-12-18 12:22] LABS: CREATINE KINASE 32 U/L (26-192)
[2016-12-18] MEDS ORDERED: PIPERACIL-TAZO 3.375 GM PREMIX 50 ML IV ONE (12:30)
[2016-12-18] MEDS ORDERED: PIPERACIL-TAZO 4.5 GM PREMIX 100 ML IV ONE (12:30)
--- NOTE | 2016-12-18 12:36 | RADRPT ---
EXAM DATE/TIME: 12/18/2016 12:04 [place] COMPARISON: CHEST SINGLE AP, December 10, 2016, 4:05. INDICATIONS : Pain in chest and arms today. MEDICAL HISTORY : dementia SURGICAL HISTORY : left hip replacement ENCOUNTER: Initial ACUITY: 1 day PAIN SCORE: 3/10 LOCATION: Bilateral chest FINDINGS: A single view of the chest demonstrates the lungs to be symmetrically aerated without evidence of mas s, infiltrate or effusion. The cardiomediastinal contours are unremarkable. Osseous structures are intact. CONCLUSION: No acute disease. Sharan Craig MD on December 18, 2016 at 12:33 Board Certified Radiologist. This report was verified electronically.
[2016-12-18] MEDS ORDERED: MAGNESIUM HYDROXIDE SUSP 30 ML CUP PO PRN (14:00)
[2016-12-18] MEDS ORDERED: BISACODYL 10 MG SUPP RECTAL PRN (14:00)
[2016-12-18] MEDS ORDERED: NALOXONE HCL 0.4 MG/ML AMP IV PRN (14:00)
[2016-12-18] MEDS ORDERED: SODIUM CHLORIDE 0.9% FLUSH 10 ML FLUSH IV FLUSH PRN (14:00)
[2016-12-18] MEDS ORDERED: ERGOCALCIFEROL (VIT D2) 50,000 UNIT CAP PO SCH (14:00)
[2016-12-18] MEDS ORDERED: ONDANSETRON HCL 4 MG/2 ML VIAL IVP PRN (14:00)
[2016-12-18] MEDS ORDERED: LACTULOSE SYRUP 20 GM/30 ML CUP PO PRN (14:00)
[2016-12-18] MEDS ORDERED: ACETAMINOPHEN 325 MG TAB PO PRN (14:00)
[2016-12-18] MEDS ORDERED: SENNOSIDES 8.6 MG TAB PO PRN (14:00)
--- NOTE | 2016-12-18 14:00 | PD ---
Physical Exam Narrative GENERAL: Well-nourished, well-developed patient. SKIN: Warm and dry. HEAD: Normocephalic and atraumatic. EYES: No injection or drainage. ENT: No nasal drainage noted. NECK: Supple, trachea midline. CARDIOVASCULAR: irregular rate and rhythm RESPIRATORY: no increased effort. No accessory muscle use. GASTROINTESTINAL: Abdomen soft, nondistended. NEUROLOGICAL: Awake. moves all extremities. Normal speech. Data Data Last Documented VS Vital Signs Date Time Temp Pulse Resp B/P Pulse Ox O2 Delivery O2 Flow Rate FiO2 12/18/16 11:35 97 Room Air 12/18/16 11:21 145 20 12/18/16 11:08 98.2 Orders Electrocardiogram (12/18/16 11:16) Ckmb (Isoenzyme) Profile (12/18/16 11:16) Complete Blood Count With Diff (12/18/16 11:16) Comprehensive Metabolic Panel (12/18/16 11:16) Magnesium (Mg) (12/18/16 11:16) Prothrombin Time / Inr (Pt) (12/18/16 11:16) Act Partial Throm Time (Ptt) (12/18/16 11:16) Troponin I (12/18/16 11:16) Chest, Single Ap (12/18/16 11:16) Ecg Monitoring (12/18/16 11:16) Bilateral Bp Monitoring (12/18/16 11:16) Iv Access Insert/Monitor (12/18/16 11:16) Oximetry (12/18/16 11:16) Oxygen Administration (12/18/16 11:16) Sodium Chloride 0.9% Flush (Ns Flush) (12/18/16 11:30) Thyroid Stimulating Hormone (12/18/16 11:16) Free Thyroxine (T4) (12/18/16 11:16) Diltiazem Inj (Cardizem Inj) (12/18/16 11:30) Urinalysis - C+S If Indicated (12/18/16 11:18) Cath For Specimen (12/18/16 11:18) Sodium Chlorid 0.9% 500 Ml Inj (Ns 500 M (12/18/16 11:30) Urine Culture (12/18/16 11:45) Lactic Acid (12/18/16 12:12) Piperacil-Tazo 3.375 Gm Premix (Zosyn 3. (12/18/16 12:30) Piperacil-Tazo 4.5 Gm Premix (Zosyn 4.5 (12/18/16 12:30) Sodium Chlorid 0.9% 500 Ml Inj (Ns 500 M (12/18/16 12:30) Lactic Acid Sepsis Protocol (12/18/16 12:28) Blood Culture (12/18/16 12:28) Diltiazem Inj (Cardizem Inj) (12/18/16 13:15) Admit Order (Ed Use Only) (12/18/16 13:53) Cholecalciferol (Vitamin D3) (12/19/16 09:00) Citalopram (Celexa) (12/19/16 09:00) Diltiazem (Cardizem) (12/18/16 18:00) Donepezil (Aricept) (12/18/16 21:00) Ergocalciferol (Drisdol) (12/18/16 14:00) Lactobacillus Acidophilus (Lactinex) (12/18/16 21:00) Memantine (Namenda) (12/18/16 21:00) Rivaroxaban (Xarelto) (12/19/16 09:00) Labs Laboratory Tests Test 12/18/16 12/18/16 11:45 12:31 White Blood Count 11.2 TH/MM3 Red Blood Count 4.54 MIL/MM3 Hemoglobin 13.6 GM/DL Hematocrit 41.6 % Mean Corpuscular Volume 91.7 FL Mean Corpuscular Hemoglobin 29.9 PG Mean Corpuscular Hemoglobin 32.6 % Concent Red Cell Distribution Width 14.1 % Platelet Count 224 TH/MM3 Mean Platelet Volume 9.7 FL Neutrophils (%) (Auto) 79.7 % Lymphocytes (%) (Auto) 11.9 % Monocytes (%) (Auto) 7.0 % Eosinophils (%) (Auto) 0.9 % Basophils (%) (Auto) 0.5 % Neutrophils # (Auto) 8.9 TH/MM3 Lymphocytes # (Auto) 1.3 TH/MM3 Monocytes # (Auto) 0.8 TH/MM3 Eosinophils # (Auto) 0.1 TH/MM3 Basophils # (Auto) 0.1 TH/MM3 CBC Comment DIFF FINAL Differential Comment Prothrombin Time 15.4 SEC Prothromb Time International 1.4 RATIO Ratio Activated Partial 36.2 SEC Thromboplast Time Urine Color DARK-YELLOW Urine Turbidity HAZY Urine pH 5.5 Urine Specific [place] 1.017 Urine Protein 30 mg/dL Urine Glucose (UA) TRACE mg/dL Urine Ketones 40 mg/dL Urine Occult Blood NEG Urine Nitrite NEG Urine Bilirubin NEG Urine Urobilinogen 2.0 MG/DL Urine Leukocyte Esterase TRACE Urine RBC 5 /hpf Urine WBC 13 /hpf Urine Squamous Epithelial 3 /hpf Cells Urine Transitional Epithelial <1 /hpf Cells Urine Bacteria OCC /hpf Urine Hyaline Casts 19 /lpf Urine Mucus MANY /lpf Microscopic Urinalysis Comment CATH-CULTURE IND Sodium Level 140 MEQ/L Potassium Level 3.2 MEQ/L Chloride Level 100 MEQ/L Carbon Dioxide Level 32.0 MEQ/L Anion Gap 8 MEQ/L Blood Urea Nitrogen 16 MG/DL Creatinine 0.81 MG/DL Estimat Glomerular Filtration 67 ML/MIN Rate Random Glucose 85 MG/DL Calcium Level 8.9 MG/DL Magnesium Level 1.8 MG/DL Total Bilirubin 0.6 MG/DL Aspartate Amino Transf 27 U/L (AST/SGOT) Alanine Aminotransferase 43 U/L (ALT/SGPT) Alkaline Phosphatase 121 U/L Total Creatine Kinase 32 U/L Troponin I 0.02 NG/ML Total Protein 6.7 GM/DL Albumin 2.5 GM/DL Free Thyroxine 1.55 NG/DL Thyroid Stimulating Hormone 1.130 uIU/ML 3rd Gen Lactic Acid Level 2.0 mmol/L [facility] Medical Record Reviewed: Yes (pmh confirmed) Supervised Visit with J[facility]ON: Yes Interpretation(s) CBC & BMP Diagram 12/18/16 11:45 Last 24 hours Impressions Chest X-Ray 12/18/16 1116 Signed Impressions: Service Date/Time: November 12:04 - CONCLUSION: No acute disease. Sharan Craig MD Narrative Course I, Dr. foote, have reviewed the advance practice practitioner's documentation and am in agreement, met with the patient face to face, made the diagnosis, and the medical decision making was done by me. *My assessment and Findings: 86 -year-old female presents with A. fib with RVR and UTI with recent sepsis. Given IV fluids, antibiotics and Cardizem. Patient will need to be admitted to the hospital for further care and treatment. Sepsis Criteria SIRS Criteria (2 or more): Heart rate over 90 Sepsis Criteria (SIRS+source): Infect source susp/known Diagnosis Primary Impression: Atrial fibrillation with RVR Additional Impressions: Urinary tract infection Qualified Code: N39.0 - Urinary tract infection with hematuria, site unspecified Hypokalemia Admitting Information Admitting Physician Requests: Admit Condition: Stable Sasha Foote MD December 18, 2016 14:00
--- NOTE | 2016-12-18 14:09 | HHI.HP ---
[facility] Primary Care Physician Stefanie Eng MD Admission Diagnosis afib with rvr, uti Diagnoses: Chief Complaint: Atypical Chest pain. Travel History International Travel<30 Days: No Contact w/Intl Traveler <30 Da: No Traveled to Known Affected Are: No History of Present Illness This is a pleasant 86 y/o Female who had recently had a Hip replacement, she was sent for Rehabilitation, then sent again to this facility due to Nausea, and vomit, She has History of Dementia, her Lactic Acid was 4 and elevated Creatinine level Atrial Fibrillation with RVR, CT scan of abdomen was negative, on this opportunity came from Rehab facility due to Chest pain, experienced chest pain with radiation to the left arm during physical Activity, Diaphoresis, the patient is been chest Pain free since EMS arrived. patient seen in Emergency Room, not able to give information about her History but was taken from medical Records and discussed with ER specialist and CUSTODY ASSISTANT. no symptomatic at this time, will continue anticoagulation started on Beta blockers and will continue Cardizem drip from ER. Past Family Social History Past Medical History CAD on chronic anticoagulation with Xarelto Atrial Fibrillation Depression Dementia Recurrent UTI Past Surgical History Left Hip arthroplasty Reported Medications Reported Meds & Active Scripts Active Macrobid (Nitrofurantoin Monoh/Nitrofur Macro) 100 Mg Cap 100 Mg PO BID Acidophilus/l-Sporogenes (Lactobacillus Acidophilus) 1 Tab Tab 1 Tab PO Q12HR Cardizem (Diltiazem HCl) 30 Mg Tab 30 Mg PO Q6HR [place] (Hydrocodone-Acetaminophen) 7.5-325 mg Tab 1 Tab PO Q4H PRN Bisac-Evac Supp (Bisacodyl) 10 Mg Supp 10 Mg RECTAL DAILY PRN 10 Days Calcium 600+D 200 (Calcium Carbonate-Vitamin D) 600-200 Mg-Unit Tab 1 Tab PO BID 30 Days Vitamin D3 (Cholecalciferol) 2,000 Unit Cap 2,000 Units PO DAILY Ergocalciferol 50,000 Unit Cap 50,000 Units PO Q7D Xarelto (Rivaroxaban) 10 Mg Tab 10 Mg PO DAILY Walker/Adult/Folding (Device) 1 Mis Mis 1 Ea .ROUTE DIRECTED Reported Citalopram (Citalopram Hydrobromide) 20 Mg Tab 20 Mg PO DAILY Fluticasone Nasal [place] 50 Mcg/Act Naspr 50 Mcg EACH NARE BID 50 mcg/spray Memantine 10 Mg Tab 10 Mg PO BID Donepezil 10 Mg Tab 10 Mg PO HS Allergies: Coded Allergies: No Known Allergies (Unverified , 12/08/16) Active Ordered Medications Current Medications Medications (Trade) Dose Ordered Sig/Claudette Route Start Time Stop Time Status Last Admin (NS Flush) 2 ml UNSCH PRN IVF 12/18/16 11:30 (Vitamin D3) 2,000 units DAILY PO 12/19/16 09:00 (CeleXA) 20 mg DAILY PO 12/19/16 09:00 (Cardizem) 30 mg Q6HR PO 12/18/16 18:00 (Aricept) 10 mg HS PO 12/18/16 21:00 (Drisdol) 50,000 units Q7D PO 12/18/16 14:00 (Lactinex) 1 tab Q12HR PO 12/18/16 21:00 (Namenda) 10 mg BID PO 12/18/16 21:00 Rivaroxaban 10 mg 10 mg DAILY PO 12/19/16 09:00 (NS 1000 ml Inj) 1,000 ml @ 100 mls/hr Q10H IV 12/18/16 13:54 (NS Flush) 2 ml UNSCH PRN IV FLUSH 12/18/16 14:00 (NS Flush) 2 ml BID IV FLUSH 12/18/16 21:00 (Tylenol) 650 mg Q4H PRN PO 12/18/16 14:00 (Zofran Inj) 4 mg Q6H PRN IVP 12/18/16 14:00 (Narcan Inj) 0.4 mg UNSCH PRN IV 12/18/16 14:00 (Fina-Colace) 1 tab BID PO 12/18/16 21:00 (Milk Of Magnesia Liq) 30 ml Q12H PRN PO 12/18/16 14:00 (Senokot) 17.2 mg Q12H PRN PO 12/18/16 14:00 (Dulcolax Supp) 10 mg DAILY PRN RECTAL 12/18/16 14:00 (Lactulose Liq) 30 ml DAILY PRN PO 12/18/16 14:00 (Pepcid Inj) 20 mg Q12H IV PUSH 12/18/16 14:00 UNV Family History Asked and denied. Social History Brought in from Rehabilitation facility. No actual Toxic habits. Physical Exam Vital Signs Vital Signs Date Time Temp Pulse Resp B/P Pulse Ox O2 Delivery O2 Flow Rate FiO2 12/18/16 11:35 97 Room Air 12/18/16 11:21 145 20 Room Air 12/18/16 11:08 98.2 146 20 Physical Exam GENERAL: Well developed female, no acute distress. SKIN: Focused skin assessment warm/dry. HEAD: Atraumatic. Normocephalic. EYES: Pupils equal and round. No scleral icterus. No injection or drainage. ENT: No nasal bleeding or discharge. Mucous membranes pink and moist. NECK: Trachea midline. No JVD. CARDIOVASCULAR: Tachycardic, irregularly irregular. No murmur appreciated. RESPIRATORY: No accessory muscle use. Clear to auscultation. Breath sounds equal bilaterally. GASTROINTESTINAL: Abdomen soft, non-tender, nondistended. Hepatic and splenic margins not palpable. MUSCULOSKELETAL: No obvious deformities. No clubbing. No cyanosis. No edema. NEUROLOGICAL: Awake and alert, oriented to self only. No obvious cranial nerve deficits. Motor grossly within normal limits. Normal speech. PSYCHIATRIC: Appropriate mood and affect; insight and judgment impaired. Laboratory Laboratory Tests Test 12/18/16 12/18/16 11:45 12:31 White Blood Count 11.2 Red Blood Count 4.54 Hemoglobin 13.6 Hematocrit 41.6 Mean Corpuscular Volume 91.7 Mean Corpuscular Hemoglobin 29.9 Mean Corpuscular Hemoglobin 32.6 Concent Red Cell Distribution Width 14.1 Platelet Count 224 Mean Platelet Volume 9.7 Neutrophils (%) (Auto) 79.7 Lymphocytes (%) (Auto) 11.9 Monocytes (%) (Auto) 7.0 Eosinophils (%) (Auto) 0.9 Basophils (%) (Auto) 0.5 Neutrophils # (Auto) 8.9 Lymphocytes # (Auto) 1.3 Monocytes # (Auto) 0.8 Eosinophils # (Auto) 0.1 Basophils # (Auto) 0.1 CBC Comment DIFF FINAL Differential Comment Prothrombin Time 15.4 Prothromb Time International 1.4 Ratio Activated Partial 36.2 Thromboplast Time Urine Color DARK-YELLOW Urine Turbidity HAZY Urine pH 5.5 Urine Specific [place] 1.017 Urine Protein 30 Urine Glucose (UA) TRACE Urine Ketones 40 Urine Occult Blood NEG Urine Nitrite NEG Urine Bilirubin NEG Urine Urobilinogen 2.0 Urine Leukocyte Esterase TRACE Urine RBC 5 Urine WBC 13 Urine Squamous Epithelial 3 Cells Urine Transitional Epithelial <1 Cells Urine Bacteria OCC Urine Hyaline Casts 19 Urine Mucus MANY Microscopic Urinalysis Comment CATH-CULTURE IND Sodium Level 140 Potassium Level 3.2 Chloride Level 100 Carbon Dioxide Level 32.0 Anion Gap 8 Blood Urea Nitrogen 16 Creatinine 0.81 Estimat Glomerular Filtration 67 Rate Random Glucose 85 Calcium Level 8.9 Magnesium Level 1.8 Total Bilirubin 0.6 Aspartate Amino Transf 27 (AST/SGOT) Alanine Aminotransferase 43 (ALT/SGPT) Alkaline Phosphatase 121 Total Creatine Kinase 32 Troponin I 0.02 Total Protein 6.7 Albumin 2.5 Free Thyroxine 1.55 Thyroid Stimulating Hormone 1.130 3rd Gen Lactic Acid Level 2.0 Date/Time Procedure Status Source Growth 12/18/16 12:37 Aerobic Blood Culture Received Blood Peripheral Pending 12/18/16 12:37 Anaerobic Blood Culture Received Blood Peripheral Pending 12/18/16 11:45 Urine Culture Received Urine Catheterized Urine Pending Result Diagram: 12/18/16 1145 12/18/16 1145 Imaging Last Impressions Chest X-Ray 12/18/16 1116 Signed Impressions: Service Date/Time: November 12:04 - CONCLUSION: No acute disease. Sharan Craig MD Assessment and Plan Assessment and Plan 1. Atypical Chest pain with Cardiac enzymes within normal limits, probable secondary to #2 will follow 2. Atrial Fibrillation with RVR, given 15 mg of Cardizem and will be started on Cardizem drip, will continue IV fluids and give one dose of Metoprolol XR 12.5 mg daily, consult placed for behavior support specialist and follow recommendations. continue Cardiac enzymes. Cardiac monitoring. will go to PCU. 3. 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 5. Sigmoid Diverticulosis/Abdominal pain, elevated transaminases. on last admission had full workup negative. 6. UTI secondary to Escherichia Coli, was on Zosyn and Macrobid finished 10 days of treatment. on this admission given Zosyn again, patient asymptomatic will hold on antibiotics and follow Urine culture results. blood cultures 7. History of Left hip bipolar hemiarthroplasty by Doctor Pamela. 8. electrolyte derangement replaced and following. DVT prophylaxis with Xarelto Code Status DNR/DNI Discussed Condition With As Always a pleasure to talk about cases receive input and recommendations by Emergency Medicine Specialist Doctor Sasha Foote Appreciated I had the opportunity to talk about the Case with Emergency Medicine CUSTODY ASSISTANT Miss Prater Salome Manriquez Appreciated. Joseph Murray MD December 18, 2016 14:09
[2016-12-18] MEDS ORDERED: PILL SPLITTER OTHER PRN (14:45)
[2016-12-18] MEDS ORDERED: POTASSIUM CHLORIDE 20 MEQ CONTROLLED RELEASE TAB PO ONE ×2 (15:00→17:00)
--- NOTE | 2016-12-18 15:22 | PD.CONS ---
HPI Consult Requested By Primary Care Physician Stefanie Eng MD History of Present Illness 86 y/o F with pmhx significant for recent Hip replacement, afib on OAC, dementia sent from Rehabilitation after complaining of chest pain during PT. She has no recollection of events. In the ER she was found to have lactic acid 4 , acute renal failure, urine infection, dehydrated and in atrial fibrillation with RVR. She has been started on Cardizem drip. Cardiology consulted for afib RVR management. She is a DNR. Afib converted to SR in the ER. Review of Systems ROS Limitations: Poor Historian Consitutional: DENIES: Fatigue, Fever, Chills, Weight gain, Weight loss Eyes: DENIES: Amaurosis Fugax, Change in vision HEENT: DENIES: Lightheadedness, Change in hearing Respiratory: COMPLAINS OF: See HPI, DENIES: Cough, Snoring, Shortness of breath, Wheezing, Sputum production Cardiovascular: COMPLAINS OF: See HPI, DENIES: Chest pain, Palpitations, Syncope, Tachycardia Gastrointestinal: DENIES: Nausea, Vomiting, Change in bowel habits, Reflux, Bloody stools, Melena Genitourinary: DENIES: Urinary incontinence, Difficulty voiding Integumentary: DENIES: Rash Neurologic: DENIES: Tingling or numbness, Memory problems, Poor Balance, Stroke symptoms Musculoskeletal: DENIES: Joint pain, Muscle pain, Limited range of motion, Back pain Psychiatric: DENIES: Anxiety, Depression, Sleep disturbances Hematologic: DENIES: Bruising tendencies, Bleeding tendencies Endocrine: DENIES: Weight gain, Weight loss, Thyroid disease Past Family Social History Allergies: Coded Allergies: No Known Allergies (Unverified , 12/08/16) Past Medical History CAD Atrial Fibrillation on Xarelto Depression Dementia Recurrent UTI Past Surgical History Left Hip arthroplasty Reported Medications Reported Meds & Active Scripts Active Macrobid (Nitrofurantoin Monoh/Nitrofur Macro) 100 Mg Cap 100 Mg PO BID Acidophilus/l-Sporogenes (Lactobacillus Acidophilus) 1 Tab Tab 1 Tab PO Q12HR Cardizem (Diltiazem HCl) 30 Mg Tab 30 Mg PO Q6HR [place] (Hydrocodone-Acetaminophen) 7.5-325 mg Tab 1 Tab PO Q4H PRN Bisac-Evac Supp (Bisacodyl) 10 Mg Supp 10 Mg RECTAL DAILY PRN 10 Days Calcium 600+D 200 (Calcium Carbonate-Vitamin D) 600-200 Mg-Unit Tab 1 Tab PO BID 30 Days Vitamin D3 (Cholecalciferol) 2,000 Unit Cap 2,000 Units PO DAILY Ergocalciferol 50,000 Unit Cap 50,000 Units PO Q7D Xarelto (Rivaroxaban) 10 Mg Tab 10 Mg PO DAILY Walker/Adult/Folding (Device) 1 Mis Mis 1 Ea .ROUTE DIRECTED Reported Citalopram (Citalopram Hydrobromide) 20 Mg Tab 20 Mg PO DAILY Fluticasone Nasal [place] 50 Mcg/Act Naspr 50 Mcg EACH NARE BID 50 mcg/spray Memantine 10 Mg Tab 10 Mg PO BID Donepezil 10 Mg Tab 10 Mg PO HS Active Ordered Medications Current Medications Medications (Trade) Dose Ordered Sig/Claudette Route Start Time Stop Time Status Last Admin (NS Flush) 2 ml UNSCH PRN IVF 12/18/16 11:30 (Vitamin D3) 2,000 units DAILY PO 12/19/16 09:00 (CeleXA) 20 mg DAILY PO 12/19/16 09:00 (Cardizem) 30 mg Q6HR PO 12/18/16 18:00 (Aricept) 10 mg HS PO 12/18/16 21:00 (Drisdol) 50,000 units Q7D PO 12/18/16 14:00 (Lactinex) 1 tab Q12HR PO 12/18/16 21:00 (Namenda) 10 mg BID PO 12/18/16 21:00 Rivaroxaban 10 mg 10 mg DAILY PO 12/19/16 09:00 (NS 1000 ml Inj) 1,000 ml @ 100 mls/hr Q10H IV 12/18/16 13:54 (NS Flush) 2 ml UNSCH PRN IV FLUSH 12/18/16 14:00 (NS Flush) 2 ml BID IV FLUSH 12/18/16 21:00 (Tylenol) 650 mg Q4H PRN PO 12/18/16 14:00 (Zofran Inj) 4 mg Q6H PRN IVP 12/18/16 14:00 (Narcan Inj) 0.4 mg UNSCH PRN IV 12/18/16 14:00 (Fina-Colace) 1 tab BID PO 12/18/16 21:00 (Milk Of Magnesia Liq) 30 ml Q12H PRN PO 12/18/16 14:00 (Senokot) 17.2 mg Q12H PRN PO 12/18/16 14:00 (Dulcolax Supp) 10 mg DAILY PRN RECTAL 12/18/16 14:00 (Lactulose Liq) 30 ml DAILY PRN PO 12/18/16 14:00 (Pepcid Inj) 20 mg Q12H IV PUSH 12/18/16 15:00 (Toprol Xl) 12.5 mg DAILY PO 12/18/16 15:00 Miscellaneous 1 ea 1 ea UNSCH PRN OTHER 12/18/16 14:45 (Magnesium Sulfate 1 Gm Premix) 100 ml @ 100 mls/hr Q1H IV 12/18/16 16:00 12/18/16 17:59 (KCl) 40 meq ONCE ONCE PO 12/18/16 17:00 12/18/16 17:01 (Pepcid) 20 mg BID PO 12/18/16 21:00 Family History Noncontributory Social History No alcohol No illicit drug use No smoking Physical Exam Vital Signs Vital Signs Date Time Temp Pulse Resp B/P Pulse Ox O2 Delivery O2 Flow Rate FiO2 12/18/16 11:35 97 Room Air 12/18/16 11:21 145 20 Room Air 12/18/16 11:08 98.2 146 20 Physical Exam GENERAL: Well-nourished, well-developed patient. SKIN: Warm and dry. HEAD: Normocephalic. EYES: No scleral icterus. No injection or drainage. NECK: Supple, trachea midline. No JVD or lymphadenopathy. CARDIOVASCULAR: Irr Irr no murmurs, gallops, or rubs. RESPIRATORY: Breath sounds equal bilaterally. No accessory muscle use. GASTROINTESTINAL: Abdomen soft, non-tender, nondistended. EXTREMITIES: No cyanosis, or edema. NEUROLOGICAL: Awake, alert, and oriented Laboratory Laboratory Tests Test 12/18/16 12/18/16 11:45 12:31 White Blood Count 11.2 Red Blood Count 4.54 Hemoglobin 13.6 Hematocrit 41.6 Mean Corpuscular Volume 91.7 Mean Corpuscular Hemoglobin 29.9 Mean Corpuscular Hemoglobin 32.6 Concent Red Cell Distribution Width 14.1 Platelet Count 224 Mean Platelet Volume 9.7 Neutrophils (%) (Auto) 79.7 Lymphocytes (%) (Auto) 11.9 Monocytes (%) (Auto) 7.0 Eosinophils (%) (Auto) 0.9 Basophils (%) (Auto) 0.5 Neutrophils # (Auto) 8.9 Lymphocytes # (Auto) 1.3 Monocytes # (Auto) 0.8 Eosinophils # (Auto) 0.1 Basophils # (Auto) 0.1 CBC Comment DIFF FINAL Differential Comment Prothrombin Time 15.4 Prothromb Time International 1.4 Ratio Activated Partial 36.2 Thromboplast Time Urine Color DARK-YELLOW Urine Turbidity HAZY Urine pH 5.5 Urine Specific [place] 1.017 Urine Protein 30 Urine Glucose (UA) TRACE Urine Ketones 40 Urine Occult Blood NEG Urine Nitrite NEG Urine Bilirubin NEG Urine Urobilinogen 2.0 Urine Leukocyte Esterase TRACE Urine RBC 5 Urine WBC 13 Urine Squamous Epithelial 3 Cells Urine Transitional Epithelial <1 Cells Urine Bacteria OCC Urine Hyaline Casts 19 Urine Mucus MANY Microscopic Urinalysis Comment CATH-CULTURE IND Sodium Level 140 Potassium Level 3.2 Chloride Level 100 Carbon Dioxide Level 32.0 Anion Gap 8 Blood Urea Nitrogen 16 Creatinine 0.81 Estimat Glomerular Filtration 67 Rate Random Glucose 85 Calcium Level 8.9 Magnesium Level 1.8 Total Bilirubin 0.6 Aspartate Amino Transf 27 (AST/SGOT) Alanine Aminotransferase 43 (ALT/SGPT) Alkaline Phosphatase 121 Total Creatine Kinase 32 Troponin I 0.02 Total Protein 6.7 Albumin 2.5 Free Thyroxine 1.55 Thyroid Stimulating Hormone 1.130 3rd Gen Lactic Acid Level 2.0 Date/Time Procedure Status Source Growth 12/18/16 12:37 Aerobic Blood Culture Received Blood Peripheral Pending 12/18/16 12:37 Anaerobic Blood Culture Received Blood Peripheral Pending 12/18/16 11:45 Urine Culture Received Urine Catheterized Urine Pending Result Diagram: 12/18/16 1145 12/18/16 1145 Imaging Last Impressions Chest X-Ray 12/18/16 1116 Signed Impressions: Service Date/Time: November 12:04 - CONCLUSION: No acute disease. Sharan Craig MD Assessment and Plan Problem List: (1) Atrial fibrillation with RVR Assessment and Plan: Afib with RVR in the setting of UTI, dehydration. She has a known hx of Afib on OAC. Recent echo shows normal systolic function with estimated 60% EF. She has no CV complaints at this time. Negative cardiac markers so far. DNR. Recommendations: Cont rate control Cont OAC Avoid electrolytes abnormalities Telemetry monitoring CE x3 Q6H Thank you for the opportunity to participate in the care of this patient Will be available on a PRN basis for any questions or concerns (2) Dementia (3) BRENT (acute kidney injury) Dmitry Velázquez MD December 18, 2016 15:21
[2016-12-18] MEDS: METOPROLOL SUCCINATE 25 MG EXTENDED RELEASE TAB PO SCH (15:34)
[2016-12-18] MEDS: FAMOTIDINE 20 MG/2 ML VIAL IV PUSH SCH (15:35)
[2016-12-18] MEDS: SODIUM CHLOR 0.9% 1000 ML INJ 1,000 ML IV SCH (18:00)
[2016-12-18] MEDS: MAGNESIUM SULFATE 1 GM PREMIX 100 ML IV SCH ×2 (18:00→20:09)
[2016-12-18] MEDS: DILTIAZEM HCL 30 MG TAB PO SCH ×2 (18:49→23:21)
[2016-12-18] MEDS: DOCUSATE SODIUM 50 MG/SENNA 8.6 MG TAB PO SCH (20:09)
[2016-12-18] MEDS: LACTOBACILLUS ACIDOPHILUS TAB PO SCH (20:10)
[2016-12-18] MEDS: SODIUM CHLORIDE 0.9% FLUSH 10 ML FLUSH IV FLUSH SCH (20:10)
[2016-12-18] MEDS: DONEPEZIL HCL 5 MG TAB PO SCH (20:10)
[2016-12-18] MEDS: MEMANTINE HCL 10 MG TAB PO SCH (20:10)
[2016-12-18] MEDS: FAMOTIDINE 20 MG TAB PO SCH (20:10)
[2016-12-18 22:57] LABS: POTASSIUM 3.2 MEQ/L (3.5-5.1)
[2016-12-19] VITALS (24 sets, daily range): BP systolic 97–124; BP diastolic 48–65; PULSE 51–90; RESP 16–20; TEMP 97.6–97.7; O2SAT 96–99
[2016-12-19] MEDS: FAMOTIDINE 20 MG/2 ML VIAL IV PUSH SCH (03:38)
[2016-12-19] MEDS: DILTIAZEM HCL 30 MG TAB PO SCH ×2 (05:50→12:00)
[2016-12-19] MEDS: LACTOBACILLUS ACIDOPHILUS TAB PO SCH ×2 (09:17→20:56)
[2016-12-19] MEDS: METOPROLOL SUCCINATE 25 MG EXTENDED RELEASE TAB PO SCH (09:17)
[2016-12-19] MEDS: CITALOPRAM HYDROBROMIDE 20 MG TAB PO SCH (09:17)
[2016-12-19] MEDS: CHOLECALCIFEROL (VIT D3) 1000 UNIT TAB PO SCH (09:17)
[2016-12-19] MEDS: FAMOTIDINE 20 MG TAB PO SCH ×2 (09:18→20:56)
[2016-12-19] MEDS: MEMANTINE HCL 10 MG TAB PO SCH ×2 (09:18→20:56)
[2016-12-19] MEDS: SODIUM CHLORIDE 0.9% FLUSH 10 ML FLUSH IV FLUSH SCH ×2 (09:18→20:57)
[2016-12-19] MEDS: DOCUSATE SODIUM 50 MG/SENNA 8.6 MG TAB PO SCH ×2 (09:18→20:56)
[2016-12-19] MEDS: RIVAROXABAN 10 MG TAB PO SCH (09:18)
[2016-12-19] MEDS: SODIUM CHLOR 0.9% 1000 ML INJ 1,000 ML IV SCH (09:19)
[2016-12-19 10:06] LABS: AUTOMATED NEUTROPHIL # 8.4 TH/MM3 (1.8-7.7); BASOPHIL # 0.1 TH/MM3 (0-0.2); BASOPHIL % 0.8 % (0.0-2.0); EOSINOPHIL # 0.1 TH/MM3 (0-0.4); EOSINOPHIL % 1.1 % (0.0-4.0); HEMO FLAGS DIFF FINAL; LYMPHOCYTE # 1.4 TH/MM3 (1.0-4.8); MEAN CELL VOLUME 91.2 FL (80.0-100.0); MEAN CORPUSCULAR HEMOGLOBIN 31.1 PG (27.0-34.0); MEAN CORPUSCULAR HGB CONC 34.1 % (32.0-36.0); MONO % 5.8 % (0.0-8.0); NEUT % 79.3 % (16.0-70.0); PLATELET COUNT 209 TH/MM3 (150-450); RED BLOOD COUNT 3.83 MIL/MM3 (4.00-5.30); RED CELL DISTRIBUTION WIDTH 14.5 % (11.6-17.2); WHITE BLOOD COUNT 10.6 TH/MM3 (4.0-11.0)
[2016-12-19 10:13] LABS: INTERNATIONAL NORMALIZED RATIO 1.1 RATIO; PROTHROMBIN TIME - PATIENT 12.2 SEC (9.8-11.6)
[2016-12-19 10:29] LABS: BICARBONATE 27.8 MEQ/L (21.0-32.0)
[2016-12-19] MEDS ORDERED: POTASSIUM CHLORIDE 20 MEQ CONTROLLED RELEASE TAB PO ONE ×2 (12:30→15:00)
--- NOTE | 2016-12-19 12:31 | HHI.PR ---
Subjective Remarks This is a pleasant 86 y/o Female who had recently had a Hip replacement, she was sent for Rehabilitation, then sent again to this facility due to Nausea, and vomit, She has History of Dementia, her Lactic Acid was 4 and elevated Creatinine level Atrial Fibrillation with RVR, CT scan of abdomen was negative, on this opportunity came from Rehab facility due to Chest pain, experienced chest pain with radiation to the left arm during physical Activity, Diaphoresis, the patient is been chest Pain free since EMS arrived. patient seen in Emergency Room, not able to give information about her History but was taken from medical Records and discussed with ER specialist and PUMP OPERATOR. no symptomatic at this time, will continue anticoagulation started on Beta blockers and will continue Cardizem drip from ER 12/19: seen in her bedroom in the presence of her Son Mr. Dameon Alexis and nurse Miss Carranzatlin no new issues, seen by mirror specialist no further recommendations, will replace potassium, continue rate controlled, will try to continue one medicine to control her heart rate and try to discontinue Cardizem every six hours to increase compliance. at this time stable eating and drinking, removed IV fluids, her Urine Culture is negative in 24 hours. Objective Vital Signs Date Time Temp Pulse Resp B/P Pulse Ox O2 Delivery O2 Flow Rate FiO2 12/19/16 11:00 74 12/19/16 10:00 68 12/19/16 09:00 65 12/19/16 08:00 97.7 57 20 97/58 99 12/19/16 08:00 99 Room Air 12/19/16 08:00 90 12/19/16 07:00 59 12/19/16 06:00 75 12/19/16 05:08 51 12/19/16 04:00 56 12/19/16 03:00 97.6 60 16 114/51 96 12/19/16 03:00 56 12/19/16 02:00 55 12/19/16 01:01 62 12/19/16 00:00 60 12/18/16 23:00 64 12/18/16 23:00 97.6 62 18 98 12/18/16 22:00 66 12/18/16 21:00 62 12/18/16 20:00 74 12/18/16 19:00 98.0 71 16 90/60 98 12/18/16 19:00 68 12/18/16 19:00 98 Room Air 12/18/16 18:00 68 12/18/16 18:00 100 Room Air 12/18/16 18:00 68 20 102/49 100 12/18/16 15:36 75 20 168/73 97 Room Air I/O 12/18/16 12/18/16 12/18/16 12/19/16 12/19/16 12/19/16 07:00 15:00 23:00 07:00 15:00 23:00 Intake Total 1504 ml Balance 1504 ml Intake Oral 480 ml IV Total 1024 ml # Voids 2 # Bowel Movements 1 Result Diagram: 12/19/16 0949 12/19/16 0949 Imaging Last Impressions Chest X-Ray 12/18/16 1116 Signed Impressions: Service Date/Time: , December 18, 2016 12:04 - CONCLUSION: No acute disease. Sharan Craig MD Procedures No procedures. Other Results Laboratory Tests Test 12/18/16 12/18/16 12/18/16 12/19/16 11:45 15:31 21:28 09:49 Activated Partial 36.2 SEC Thromboplast Time Urine Color DARK-YELLOW Urine Turbidity HAZY Urine pH 5.5 Urine Specific [place] 1.017 Urine Protein 30 mg/dL Urine Glucose (UA) TRACE mg/dL Urine Ketones 40 mg/dL Urine Occult Blood NEG Urine Nitrite NEG Urine Bilirubin NEG Urine Urobilinogen 2.0 MG/DL Urine Leukocyte Esterase TRACE Urine RBC 5 /hpf Urine WBC 13 /hpf Urine Squamous Epithelial 3 /hpf Cells Urine Transitional Epithelial <1 /hpf Cells Urine Bacteria OCC /hpf Urine Hyaline Casts 19 /lpf Urine Mucus MANY /lpf Microscopic Urinalysis Comment CATH-CULTURE IND Magnesium Level 1.8 MG/DL Total Bilirubin 0.6 MG/DL Aspartate Amino Transf 27 U/L (AST/SGOT) Alanine Aminotransferase 43 U/L (ALT/SGPT) Alkaline Phosphatase 121 U/L Total Protein 6.7 GM/DL Albumin 2.5 GM/DL Free Thyroxine 1.55 NG/DL Thyroid Stimulating Hormone 1.130 uIU/ML 3rd Gen Lactic Acid Level 1.6 mmol/L Total Creatine Kinase 35 U/L Troponin I 0.08 NG/ML White Blood Count 10.6 TH/MM3 Red Blood Count 3.83 MIL/MM3 Hemoglobin 11.9 GM/DL Hematocrit 35.0 % Mean Corpuscular Volume 91.2 FL Mean Corpuscular Hemoglobin 31.1 PG Mean Corpuscular Hemoglobin 34.1 % Concent Red Cell Distribution Width 14.5 % Platelet Count 209 TH/MM3 Mean Platelet Volume 9.1 FL Neutrophils (%) (Auto) 79.3 % Lymphocytes (%) (Auto) 13.0 % Monocytes (%) (Auto) 5.8 % Eosinophils (%) (Auto) 1.1 % Basophils (%) (Auto) 0.8 % Neutrophils # (Auto) 8.4 TH/MM3 Lymphocytes # (Auto) 1.4 TH/MM3 Monocytes # (Auto) 0.6 TH/MM3 Eosinophils # (Auto) 0.1 TH/MM3 Basophils # (Auto) 0.1 TH/MM3 CBC Comment DIFF FINAL Differential Comment Prothrombin Time 12.2 SEC Prothromb Time International 1.1 RATIO Ratio Sodium Level 141 MEQ/L Potassium Level 3.0 MEQ/L Chloride Level 107 MEQ/L Carbon Dioxide Level 27.8 MEQ/L Anion Gap 6 MEQ/L Blood Urea Nitrogen 14 MG/DL Creatinine 0.61 MG/DL Estimat Glomerular Filtration 93 ML/MIN Rate Random Glucose 102 MG/DL Calcium Level 8.4 MG/DL Objective Remarks GENERAL: Well developed female, no acute distress. SKIN: Focused skin assessment warm/dry. HEAD: Atraumatic. Normocephalic. EYES: Pupils equal and round. No scleral icterus. No injection or drainage. ENT: No nasal bleeding or discharge. Mucous membranes pink and moist. NECK: Trachea midline. No JVD. CARDIOVASCULAR: irregularly irregular. No murmur appreciated. RESPIRATORY: No accessory muscle use. Clear to auscultation. Breath sounds equal bilaterally. GASTROINTESTINAL: Abdomen soft, non-tender, nondistended. Hepatic and splenic margins not palpable. MUSCULOSKELETAL: No obvious deformities. No clubbing. No cyanosis. No edema. NEUROLOGICAL: Awake and alert, oriented to self only. PSYCHIATRIC: Appropriate mood and affect, Medications and IVs Current Medications Medications (Trade) Dose Ordered Sig/Claudette Route Start Time Stop Time Status Last Admin (NS Flush) 2 ml UNSCH PRN IVF 12/18/16 11:30 (Vitamin D3) 2,000 units DAILY PO 12/19/16 09:00 12/19/16 09:17 (CeleXA) 20 mg DAILY PO 12/19/16 09:00 12/19/16 09:17 (Cardizem) 30 mg Q6HR PO 12/18/16 18:00 12/19/16 05:50 (Aricept) 10 mg HS PO 12/18/16 21:00 12/18/16 20:10 (Drisdol) 50,000 units Q7D PO 12/18/16 14:00 (Lactinex) 1 tab Q12HR PO 12/18/16 21:00 12/19/16 09:17 (Namenda) 10 mg BID PO 12/18/16 21:00 12/19/16 09:18 Rivaroxaban 10 mg 10 mg DAILY PO 12/19/16 09:00 12/19/16 09:18 (NS 1000 ml Inj) 1,000 ml @ 100 mls/hr Q10H IV 12/18/16 13:54 12/19/16 09:19 (NS Flush) 2 ml UNSCH PRN IV FLUSH 12/18/16 14:00 (NS Flush) 2 ml BID IV FLUSH 12/18/16 21:00 12/19/16 09:18 (Tylenol) 650 mg Q4H PRN PO 12/18/16 14:00 (Zofran Inj) 4 mg Q6H PRN IVP 12/18/16 14:00 (Narcan Inj) 0.4 mg UNSCH PRN IV 12/18/16 14:00 (Fina-Colace) 1 tab BID PO 12/18/16 21:00 12/19/16 09:18 (Milk Of Magnesia Liq) 30 ml Q12H PRN PO 12/18/16 14:00 (Senokot) 17.2 mg Q12H PRN PO 12/18/16 14:00 (Dulcolax Supp) 10 mg DAILY PRN RECTAL 12/18/16 14:00 (Lactulose Liq) 30 ml DAILY PRN PO 12/18/16 14:00 (Pepcid Inj) 20 mg Q12H IV PUSH 12/18/16 15:00 12/19/16 03:38 (Toprol Xl) 12.5 mg DAILY PO 12/18/16 15:00 12/19/16 09:17 (Pill Splitter) 1 ea UNSCH PRN OTHER 12/18/16 14:45 (Pepcid) 20 mg BID PO 12/18/16 21:00 12/19/16 09:18 A/P Assessment and Plan 1. Atypical Chest pain with Cardiac enzymes within normal limits, probable secondary to #2 no further recommendations by mirror specialist. 2. Atrial Fibrillation with RVR, given 15 mg of Cardizem in ER received Cardizem 30 mg three times since yesterday and Continue Metoprolol 12.5 mg Extended release and her Heart rate is controlled. discontinued Cardizem 30 mg and will try to give her one medicine once a day to increase compliance. 3. 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 5. Sigmoid Diverticulosis/Abdominal pain, elevated transaminases. on last admission had full workup negative. 6. UTI secondary to Escherichia Coli, was on Zosyn and Macrobid finished 10 days of treatment. on this admission given Zosyn again, patient asymptomatic will hold on antibiotics and follow Urine culture and blood culture negative. 7. History of Left hip bipolar hemiarthroplasty by Doctor Pamela. 8. electrolyte derangement replaced and following. DVT prophylaxis with Xarelto Code Status DNR/DNI Discussed Condition With Patient, her Son Mr. Dameon More all questions answered to the best of my abilities. Discharge Planning Expected by tomorrow in am. Joseph Murray MD December 19, 2016 12:31
--- NOTE | 2016-12-19 14:20 | EKG ---
Date Performed: 12/18/2016 Time Performed: 11:35:04 PTAGE: 86 years EKG: ATRIAL FLUTTER/TACHYCARDIA WITH RAPID VENTRICULAR RESPONSE LEFT VENTRICULAR HYPERTROPHY AND ST-T CHANGE ABNORMAL ECG Compared to prior tracing no significant change PREVIOUS TRACING : 12/09/2016 00.39 DOCTOR: Max Holly Interpretating Date/Time 12/19/2016 14:19:30
[2016-12-19] MEDS ORDERED: FAMOTIDINE 20 MG/2 ML VIAL IV PUSH PRN (15:24)
[2016-12-19] MEDS: DONEPEZIL HCL 5 MG TAB PO SCH (20:56)
[2016-12-20] VITALS (19 sets, daily range): BP systolic 133–159; BP diastolic 65–85; PULSE 50–74; RESP 18–20; TEMP 97.2–97.9; O2SAT 98–99
--- NOTE | 2016-12-20 08:04 | HHI.PR ---
Subjective Remarks This is a pleasant 86 y/o Female who had recently had a Hip replacement, she was sent for Rehabilitation, then sent again to this facility due to Nausea, and vomit, She has History of Dementia, her Lactic Acid was 4 and elevated Creatinine level Atrial Fibrillation with RVR, CT scan of abdomen was negative, on this opportunity came from Rehab facility due to Chest pain, experienced chest pain with radiation to the left arm during physical Activity, Diaphoresis, the patient is been chest Pain free since EMS arrived. patient seen in Emergency Room, not able to give information about her History but was taken from medical Records and discussed with ER specialist and FILTERS ASSEMBLER. no symptomatic at this time, will continue anticoagulation started on Beta blockers and will continue Cardizem drip from ER 12/19: seen in her bedroom in the presence of her Son Mr. Dameon Alexis and nurse Lisset no new issues, seen by histology specialist no further recommendations, will replace potassium, continue rate controlled, will try to continue one medicine to control her heart rate and try to discontinue Cardizem every six hours to increase compliance. at this time stable eating and drinking, removed IV fluids, her Urine Culture is negative in 24 hours. 12/20: Patient stable in her bedroom, rate controlled on Metoprolol extended release low dose, will continue this medicine in SNF okay to discharge to SNF, already discussed with her Son yesterday and he wants his mother to go to SNF, Potassium replaced. No nausea, vomit or diarrhea. Objective Vital Signs Date Time Temp Pulse Resp B/P Pulse Ox O2 Delivery O2 Flow Rate FiO2 12/20/16 07:16 58 12/20/16 05:00 56 12/20/16 04:00 99 Room Air 12/20/16 04:00 54 12/20/16 04:00 97.9 52 20 141/85 99 12/20/16 03:00 55 12/20/16 02:00 56 12/20/16 01:00 56 12/20/16 00:00 99 Room Air 12/20/16 00:00 53 12/20/16 00:00 97.9 54 20 141/75 99 12/19/16 23:00 56 12/19/16 22:00 58 12/19/16 21:00 86 12/19/16 20:00 97.7 57 20 124/65 99 12/19/16 20:00 70 12/19/16 20:00 99 Room Air 12/19/16 19:00 60 12/19/16 18:00 78 12/19/16 17:00 60 12/19/16 16:00 97 Room Air 12/19/16 16:00 97.6 66 20 111/54 97 12/19/16 16:00 62 12/19/16 15:00 63 12/19/16 14:00 72 12/19/16 13:00 78 12/19/16 12:00 58 12/19/16 12:00 97.6 53 20 124/48 98 12/19/16 12:00 90 12/19/16 12:00 98 Room Air 12/19/16 11:00 74 12/19/16 10:00 68 12/19/16 09:00 65 I/O 12/19/16 12/19/16 12/19/16 12/20/16 12/20/16 12/20/16 07:00 15:00 23:00 07:00 15:00 23:00 Intake Total 1504 ml 1220 ml 480 ml Balance 1504 ml 1220 ml 480 ml Intake Oral 480 ml 720 ml 480 ml IV Total 1024 ml 500 ml # Voids 2 3 2 # Bowel Movements 1 0 Result Diagram: 12/19/16 0949 12/20/16 0530 Imaging Last Impressions Chest X-Ray 12/18/16 1116 Signed Impressions: Service Date/Time: November 12:04 - CONCLUSION: No acute disease. Sharan Craig MD Procedures No procedures. Other Results Laboratory Tests Test 12/18/16 12/18/16 12/18/16 12/19/16 11:45 15:31 21:28 09:49 Activated Partial 36.2 SEC Thromboplast Time Urine Color DARK-YELLOW Urine Turbidity HAZY Urine pH 5.5 Urine Specific [place] 1.017 Urine Protein 30 mg/dL Urine Glucose (UA) TRACE mg/dL Urine Ketones 40 mg/dL Urine Occult Blood NEG Urine Nitrite NEG Urine Bilirubin NEG Urine Urobilinogen 2.0 MG/DL Urine Leukocyte Esterase TRACE Urine RBC 5 /hpf Urine WBC 13 /hpf Urine Squamous Epithelial 3 /hpf Cells Urine Transitional Epithelial <1 /hpf Cells Urine Bacteria OCC /hpf Urine Hyaline Casts 19 /lpf Urine Mucus MANY /lpf Microscopic Urinalysis Comment CATH-CULTURE IND Magnesium Level 1.8 MG/DL Total Bilirubin 0.6 MG/DL Aspartate Amino Transf 27 U/L (AST/SGOT) Alanine Aminotransferase 43 U/L (ALT/SGPT) Alkaline Phosphatase 121 U/L Total Protein 6.7 GM/DL Albumin 2.5 GM/DL Free Thyroxine 1.55 NG/DL Thyroid Stimulating Hormone 1.130 uIU/ML 3rd Gen Lactic Acid Level 1.6 mmol/L Total Creatine Kinase 35 U/L Troponin I 0.08 NG/ML White Blood Count 10.6 TH/MM3 Red Blood Count 3.83 MIL/MM3 Hemoglobin 11.9 GM/DL Hematocrit 35.0 % Mean Corpuscular Volume 91.2 FL Mean Corpuscular Hemoglobin 31.1 PG Mean Corpuscular Hemoglobin 34.1 % Concent Red Cell Distribution Width 14.5 % Platelet Count 209 TH/MM3 Mean Platelet Volume 9.1 FL Neutrophils (%) (Auto) 79.3 % Lymphocytes (%) (Auto) 13.0 % Monocytes (%) (Auto) 5.8 % Eosinophils (%) (Auto) 1.1 % Basophils (%) (Auto) 0.8 % Neutrophils # (Auto) 8.4 TH/MM3 Lymphocytes # (Auto) 1.4 TH/MM3 Monocytes # (Auto) 0.6 TH/MM3 Eosinophils # (Auto) 0.1 TH/MM3 Basophils # (Auto) 0.1 TH/MM3 CBC Comment DIFF FINAL Differential Comment Prothrombin Time 12.2 SEC Prothromb Time International 1.1 RATIO Ratio Sodium Level 141 MEQ/L Chloride Level 107 MEQ/L Carbon Dioxide Level 27.8 MEQ/L Anion Gap 6 MEQ/L Blood Urea Nitrogen 14 MG/DL Creatinine 0.61 MG/DL Estimat Glomerular Filtration 93 ML/MIN Rate Random Glucose 102 MG/DL Calcium Level 8.4 MG/DL Test 12/20/16 05:30 Potassium Level 4.2 MEQ/L Objective Remarks GENERAL: Well developed female, no acute distress. SKIN: Focused skin assessment warm/dry. HEAD: Atraumatic. Normocephalic. EYES: Pupils equal and round. No scleral icterus. No injection or drainage. ENT: No nasal bleeding or discharge. Mucous membranes pink and moist. NECK: Trachea midline. No JVD. CARDIOVASCULAR: irregularly irregular. No murmur appreciated. RESPIRATORY: No accessory muscle use. Clear to auscultation. Breath sounds equal bilaterally. GASTROINTESTINAL: Abdomen soft, non-tender, nondistended. Hepatic and splenic margins not palpable. MUSCULOSKELETAL: No obvious deformities. No clubbing. No cyanosis. No edema. NEUROLOGICAL: Awake and alert, oriented to self only. PSYCHIATRIC: Appropriate mood and affect, Medications and IVs Current Medications Medications (Trade) Dose Ordered Sig/Claudette Route Start Time Stop Time Status Last Admin (Vitamin D3) 2,000 units DAILY PO 12/19/16 09:00 12/19/16 09:17 (CeleXA) 20 mg DAILY PO 12/19/16 09:00 12/19/16 09:17 (Aricept) 10 mg HS PO 12/18/16 21:00 12/19/16 20:56 (Drisdol) 50,000 units Q7D PO 12/18/16 14:00 (Lactinex) 1 tab Q12HR PO 12/18/16 21:00 12/19/16 20:56 (Namenda) 10 mg BID PO 12/18/16 21:00 12/19/16 20:56 (Xarelto) 10 mg DAILY PO 12/19/16 09:00 12/19/16 09:18 (NS Flush) 2 ml UNSCH PRN IV FLUSH 12/18/16 14:00 (NS Flush) 2 ml BID IV FLUSH 12/18/16 21:00 12/19/16 20:57 (Tylenol) 650 mg Q4H PRN PO 12/18/16 14:00 (Zofran Inj) 4 mg Q6H PRN IVP 12/18/16 14:00 (Narcan Inj) 0.4 mg UNSCH PRN IV 12/18/16 14:00 (Fina-Colace) 1 tab BID PO 12/18/16 21:00 12/19/16 20:56 (Milk Of Magnesia Liq) 30 ml Q12H PRN PO 12/18/16 14:00 (Senokot) 17.2 mg Q12H PRN PO 12/18/16 14:00 (Dulcolax Supp) 10 mg DAILY PRN RECTAL 12/18/16 14:00 (Lactulose Liq) 30 ml DAILY PRN PO 12/18/16 14:00 (Toprol Xl) 12.5 mg DAILY PO 12/18/16 15:00 12/19/16 09:17 (Pill Splitter) 1 ea UNSCH PRN OTHER 12/18/16 14:45 (Pepcid) 20 mg BID PO 12/18/16 21:00 12/19/16 20:56 (Pepcid Inj) 20 mg Q12H PRN IV PUSH 12/19/16 15:24 A/P Assessment and Plan 1. Atypical Chest pain with Cardiac enzymes within normal limits, probable secondary to #2 no further recommendations by histology specialist. 2. Atrial Fibrillation with RVR, given 15 mg of Cardizem in ER received Cardizem 30 mg three times since yesterday and Continue Metoprolol 12.5 mg Extended release and her Heart rate is controlled. discontinued Cardizem 30 mg and will continue Metoprolol 12. 5 mg daily and follow as outpatient by histology specialist her Heart rate is 60 per minute given parameters to SNF to hold medicine for systolic blood pressure in 100 mm Hg. heart rate 60 per minute or below. 3. 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 5. Sigmoid Diverticulosis/Abdominal pain, elevated transaminases. on last admission had full workup negative. 6. UTI secondary to Escherichia Coli, was on Zosyn and Macrobid finished 10 days of treatment. on this admission given Zosyn again, patient asymptomatic will hold on antibiotics and follow Urine culture and blood culture negative. 7. History of Left hip bipolar hemiarthroplasty by Doctor Pamela. 8. electrolyte derangement replaced DVT prophylaxis with Xarelto Code Status DNR/DNI Discussed Condition With Patient and nurse. all questions answered to the best of my abilities. Discharge Planning Discharge To SNF today. Joseph Murray MD December 20, 2016 08:04
[2016-12-20] MEDS: LACTOBACILLUS ACIDOPHILUS TAB PO SCH (08:27)
[2016-12-20] MEDS: RIVAROXABAN 10 MG TAB PO SCH (08:27)
[2016-12-20] MEDS: MEMANTINE HCL 10 MG TAB PO SCH (08:27)
[2016-12-20] MEDS: FAMOTIDINE 20 MG TAB PO SCH (08:27)
[2016-12-20] MEDS: METOPROLOL SUCCINATE 25 MG EXTENDED RELEASE TAB PO SCH (08:27)
[2016-12-20] MEDS: CITALOPRAM HYDROBROMIDE 20 MG TAB PO SCH (08:28)
[2016-12-20] MEDS: CHOLECALCIFEROL (VIT D3) 1000 UNIT TAB PO SCH (08:28)
[2016-12-20] MEDS: DOCUSATE SODIUM 50 MG/SENNA 8.6 MG TAB PO SCH (08:28)
[2016-12-20] MEDS: SODIUM CHLORIDE 0.9% FLUSH 10 ML FLUSH IV FLUSH SCH (09:00)
[2016-12-20] MEDS ORDERED: METO25TA6 PO (12:01)
--- NOTE | 2016-12-20 12:03 | HHI.DS ---
Discharge Summary Admission Date December 18, 2016 at 13:55 Discharge Date: December 20, 2016 Admitting Diagnosis afib with rvr, uti (1) Atrial fibrillation with RVR ICD Code: I48.91 Diagnosis: Principal (2) Hypokalemia ICD Code: E87.6 Diagnosis: Principal Procedures No procedures performed. Brief History - From Admission This is a pleasant 86 y/o Female who had recently had a Hip replacement, she was sent for Rehabilitation, then sent again to this facility due to Nausea, and vomit, She has History of Dementia, her Lactic Acid was 4 and elevated Creatinine level Atrial Fibrillation with RVR, CT scan of abdomen was negative, on this opportunity came from Rehab facility due to Chest pain, experienced chest pain with radiation to the left arm during physical Activity, Diaphoresis, the patient is been chest Pain free since EMS arrived. patient seen in Emergency Room, not able to give information about her History but was taken from medical Records and discussed with ER specialist and NET PROGRAMMER. no symptomatic at this time, will continue anticoagulation started on Beta blockers and will continue Cardizem drip from ER. CBC/BMP: 12/19/16 0949 12/20/16 0530 Significant Findings Laboratory Tests Test 12/18/16 12/18/16 12/18/16 12/19/16 11:45 15:31 21:28 09:49 White Blood Count 11.2 TH/MM3 (4.0-11.0) Neutrophils (%) (Auto) 79.7 % 79.3 % (16.0-70.0) (16.0-70.0) Neutrophils # (Auto) 8.9 TH/MM3 8.4 TH/MM3 (1.8-7.7) (1.8-7.7) Prothrombin Time 15.4 SEC 12.2 SEC (9.8-11.6) (9.8-11.6) Activated Partial 36.2 SEC Thromboplast Time (24.3-30.1) Urine Color DARK-YELLOW (YELLW/STRAW) Urine Turbidity HAZY (CLEAR) Urine Protein 30 mg/dL (NEG-TRACE) Urine Ketones 40 mg/dL (NEG) Urine Leukocyte Esterase TRACE (NEG) Urine RBC 5 /hpf (0-3) Urine WBC 13 /hpf (0-5) Urine Bacteria OCC /hpf (NONE) Urine Mucus MANY /lpf (OCC) Potassium Level 3.2 MEQ/L 3.2 MEQ/L 3.0 MEQ/L (3.5-5.1) (3.5-5.1) (3.5-5.1) Estimat Glomerular Filtration 67 ML/MIN (>89) Rate Alkaline Phosphatase 121 U/L (45-117) Albumin 2.5 GM/DL (3.4-5.0) Free Thyroxine 1.55 NG/DL (0.76-1.46) Troponin I 0.06 NG/ML 0.08 NG/ML (0.02-0.05) (0.02-0.05) Red Blood Count 3.83 MIL/MM3 (4.00-5.30) Calcium Level 8.4 MG/DL (8.5-10.1) Imaging Last Impressions Chest X-Ray 12/18/16 1116 Signed Impressions: Service Date/Time: November 12:04 - CONCLUSION: No acute disease. Sharan Craig MD PE at Discharge GENERAL: Well developed female, no acute distress. SKIN: Focused skin assessment warm/dry. HEAD: Atraumatic. Normocephalic. EYES: Pupils equal and round. No scleral icterus. No injection or drainage. ENT: No nasal bleeding or discharge. Mucous membranes pink and moist. NECK: Trachea midline. No JVD. CARDIOVASCULAR: irregularly irregular. No murmur appreciated. RESPIRATORY: No accessory muscle use. Clear to auscultation. Breath sounds equal bilaterally. GASTROINTESTINAL: Abdomen soft, non-tender, nondistended. Hepatic and splenic margins not palpable. MUSCULOSKELETAL: No obvious deformities. No clubbing. No cyanosis. No edema. NEUROLOGICAL: Awake and alert, oriented to self only. PSYCHIATRIC: Appropriate mood and affect, Hospital Course This is a pleasant 86 y/o Female who had recently had a Hip replacement, she was sent for Rehabilitation, then sent again to this facility due to Nausea, and vomit, She has History of Dementia, her Lactic Acid was 4 and elevated Creatinine level Atrial Fibrillation with RVR, CT scan of abdomen was negative, on this opportunity came from Rehab facility due to Chest pain, experienced chest pain with radiation to the left arm during physical Activity, Diaphoresis, the patient is been chest Pain free since EMS arrived. patient seen in Emergency Room, not able to give information about her History but was taken from medical Records and discussed with ER specialist and NET PROGRAMMER. no symptomatic at this time, will continue anticoagulation started on Beta blockers and will continue Cardizem drip from ER 12/19: seen in her bedroom in the presence of her Son Mr. Dameon Alexis and nurse Miss Darling no new issues, seen by interactive media marketing specialist no further recommendations, will replace potassium, continue rate controlled, will try to continue one medicine to control her heart rate and try to discontinue Cardizem every six hours to increase compliance. at this time stable eating and drinking, removed IV fluids, her Urine Culture is negative in 24 hours. 12/20: Patient stable in her bedroom, rate controlled on Metoprolol extended release low dose, will continue this medicine in SNF okay to discharge to SNF, already discussed with her Son yesterday and he wants his mother to go to SNF, Potassium replaced. No nausea, vomit or diarrhea. Assessment and Plan 1. Atypical Chest pain with Cardiac enzymes within normal limits, probable secondary to #2 no further recommendations by interactive media marketing specialist. 2. Atrial Fibrillation with RVR, given 15 mg of Cardizem in ER received Cardizem 30 mg three times since yesterday and Continue Metoprolol 12.5 mg Extended release and her Heart rate is controlled. discontinued Cardizem 30 mg and will continue Metoprolol 12. 5 mg daily and follow as outpatient by interactive media marketing specialist her Heart rate is 60 per minute given parameters to SNF to hold medicine for systolic blood pressure in 100 mm Hg. heart rate 60 per minute or below. 3. 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 5. Sigmoid Diverticulosis/Abdominal pain, elevated transaminases. on last admission had full workup negative. 6. UTI secondary to Escherichia Coli, was on Zosyn and Macrobid finished 10 days of treatment. on this admission given Zosyn again, patient asymptomatic will hold on antibiotics and follow Urine culture and blood culture negative. 7. History of Left hip bipolar hemiarthroplasty by Doctor Pamela. 8. electrolyte derangement replaced DVT prophylaxis with Xarelto Code Status DNR/DNI Discussed Condition With Patient and nurse. all questions answered to the best of my abilities. Discharge Planning Discharge To SNF today. Pt Condition on Discharge: Stable Discharge Disposition: Discharge to SNF Discharge Time: <= 30 minutes Discharge Instructions DIET: Follow Instructions for: Heart Healthy Diet Activities you can perform: Regular-No Restrictions Other Activity Instructions: Follow PT recommendations in SNF Joseph Murray MD December 20, 2016 12:03
== END 2016-12-20 17:34 ==
LOC: NEPE 11:03 → INTOOBSV 13:55 → NEDA 13:55 → HCIN 18:38
PROVIDERS: ADMIT Internal Medicine; ATTEND Internal Medicine
DX: R07.89 Other chest pain (principal); I48.91 Unspecified atrial fibrillation; N17.9 Acute kidney failure, unspecified; E86.0 Dehydration; F03.90 Unspecified dementia, unspecified severity, without behavioral disturbance, psychotic disturbance, mood disturbance, and anxiety; G93.49 Other encephalopathy; N39.0 Urinary tract infection, site not specified; G94 Other disorders of brain in diseases classified elsewhere; R31.9 Hematuria, unspecified; Z66 Do not resuscitate; E87.6 Hypokalemia; B96.20 Unspecified Escherichia coli [E. coli] as the cause of diseases classified elsewhere; E87.8 Other disorders of electrolyte and fluid balance, not elsewhere classified; I25.10 Atherosclerotic heart disease of native coronary artery without angina pectoris; F32.9 Major depressive disorder, single episode, unspecified; Z96.642 Presence of left artificial hip joint; Z79.01 Long term (current) use of anticoagulants
CPT/HCPCS: 71010; 80048; 80053; 81001; 82550; 83605; 83735; 84132; 84439; 84443; 84484; 85025; 85610; 85730; 87040; 87086; 93005; 97162; 99285; G8987; G8988; J2543; J3475; J7030; J7040; P9612; G0378

== ENCOUNTER 2017-05-08 19:30 | Emergency (ER) | payer MEDICARE, MEDICAID ==
[~2017-05-08 19:30] MED LIST changes: -DILT31TA PO; -HYDR-3288 PO; -MACR100C2 PO; +METO25TA6 PO
[2017-05-08 19:34] VITALS: BP 126/66; PULSE 83; RESP 20; TEMP 97.2; O2SAT 96
[2017-05-08 19:57] VITALS: BP 136/61; PULSE 78; RESP 16; O2SAT 95
[2017-05-08] MEDS ORDERED: SODIUM CHLORIDE 0.9% FLUSH 10 ML FLUSH IV FLUSH PRN (20:15)
[2017-05-08 20:37] LABS: BASOPHIL # 0.6 TH/MM3 (0-0.2); BASOPHIL % 3.4 % (0.0-2.0); EOSINOPHIL % 0.2 % (0.0-4.0); HEMATOCRIT 40.9 % (35.0-46.0); LYMPH % 6.1 % (9.0-44.0); LYMPHOCYTE # 1.1 TH/MM3 (1.0-4.8); MEAN CELL VOLUME 92.1 FL (80.0-100.0); MEAN CORPUSCULAR HEMOGLOBIN 30.4 PG (27.0-34.0); MONO % 4.1 % (0.0-8.0); NEUT % 86.2 % (16.0-70.0); PLATELET COUNT 181 TH/MM3 (150-450); RED BLOOD COUNT 4.45 MIL/MM3 (4.00-5.30); WHITE BLOOD COUNT 17.4 TH/MM3 (4.0-11.0)
[2017-05-08 20:39] LABS: HEMO FLAGS DIFF FINAL
[2017-05-08 20:44] LABS: CHLORIDE 104 MEQ/L (98-107); POTASSIUM 3.7 MEQ/L (3.5-5.1); SODIUM (NA) 139 MEQ/L (136-145)
[2017-05-08 20:48] LABS: ANION GAP 6 MEQ/L (5-15); BICARBONATE 28.7 MEQ/L (21.0-32.0); BLOOD UREA NITROGEN 24 MG/DL (7-18)
[2017-05-08 20:49] LABS: BLOOD, URINE NEG (NEG); GLUCOSE,URINE NEG (NEG); KETONE, URINE NEG (NEG); NITRITE,URINE NEG (NEG); PH, URINE 6.5 (5.0-8.5)
[2017-05-08 20:51] LABS: ALT (GPT) 19 U/L (10-53); AST (GOT) 16 U/L (15-37); GLOMERULAR FILTRATION RATE 68 ML/MIN (>89)
[2017-05-08 20:53] LABS: TOTAL BILIRUBIN ADULT 0.4 MG/DL (0.2-1.0)
[2017-05-08 20:54] LABS: ALKALINE PHOSPHATASE 84 U/L (45-117)
--- NOTE | 2017-05-08 20:54 | PD ---
HPI Chief Complaint: Fever Time Seen by Provider: 19:45 Travel History International Travel<30 days: No Contact w/Intl Traveler<30days: No Traveled to known affect area: No History of Present Illness HPI Patient is an 86 year old female presents from [place] for evaluation of fever. She has history of dementia. Patient has history of left lower extremity wound which started as irritation from orthotic use and had subsequently become infected. She has finished two courses of PO antibiotics and continues to have intermittent fevers. No nausea, no vomiting, no rash, no cough. This wound was explored surgically by a physician as an outpatient at another facility. Patient is demented and this limits history. Accompanied by staff from [place]. She has been taking her normal PO, she is at baseline mental status. Staff member knows patient well. 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) Psychiatric: No Reproductive: No Respiratory: No Migraines: No Seizures: No Thyroid Disease: No Menopausal: Yes Past Surgical History Abdominal Surgery: No Cardiac Surgery: No Ear Surgery: No Endocrine Surgery: No Eye Surgery: Yes (cataract) Genitourinary Surgery: No Gynecologic Surgery: No Joint Replacement: Yes (L hip) Oral Surgery: No Thoracic Surgery: No Social History Alcohol Use: No Tobacco Use: No Substance Use: No Allergies-Medications (Allergen,Severity, Reaction): Coded Allergies: No Known Allergies (Unverified , 05/08/17) Reported Meds & Prescriptions Reported Meds & Active Scripts Active Metoprolol Succinate ER 24 HR (Metoprolol Succinate) 25 Mg Tab 12.5 Mg PO DAILY Hold for systolic blood pressure in 100 mm Hg or below or for heart rate 60 per minute or below. Give it once the heart rate is over 60 to keep heart rate controlled. try to give it on daily bases. Acidophilus/l-Sporogenes (Lactobacillus Acidophilus) 1 Tab Tab 1 Tab PO Q12HR Bisac-Evac Supp (Bisacodyl) 10 Mg Supp 10 Mg RECTAL DAILY PRN 10 Days Calcium 600+D 200 (Calcium Carbonate-Vitamin D) 600-200 Mg-Unit Tab 1 Tab PO BID 30 Days Vitamin D3 (Cholecalciferol) 2,000 Unit Cap 2,000 Units PO DAILY Ergocalciferol 50,000 Unit Cap 50,000 Units PO Q7D Xarelto (Rivaroxaban) 10 Mg Tab 10 Mg PO DAILY Walker/Adult/Folding (Device) 1 Mis Mis 1 Ea .ROUTE DIRECTED Reported Citalopram (Citalopram Hydrobromide) 20 Mg Tab 20 Mg PO DAILY Fluticasone Nasal [place] 50 Mcg/Act Naspr 50 Mcg EACH NARE BID 50 mcg/spray Memantine 10 Mg Tab 10 Mg PO BID Donepezil 10 Mg Tab 10 Mg PO HS Review of Systems Except as stated in HPI: all other systems reviewed are Neg Physical Exam Narrative GENERAL: WD/WN in nad. SKIN: Warm and dry. There is 2cm laceration over gastrocnemius muscle on left. Minimal surrounding cellulitis, no discharge could be expressed. HEAD: Atraumatic. Normocephalic. EYES: Pupils equal and round. No scleral icterus. No injection or drainage. ENT: No nasal bleeding or discharge. Mucous membranes pink and moist. NECK: Trachea midline. No JVD. CARDIOVASCULAR: Regular rate and rhythm. RESPIRATORY: No accessory muscle use. Clear to auscultation. Breath sounds equal bilaterally. GASTROINTESTINAL: Abdomen soft, non-tender, nondistended. Hepatic and splenic margins not palpable. MUSCULOSKELETAL: Extremities without clubbing, cyanosis, or edema. No obvious deformities. NEUROLOGICAL: Awake and alert. No obvious cranial nerve deficits. Motor grossly within normal limits. Five out of 5 muscle strength in the arms and legs. Normal speech. PSYCHIATRIC: Appropriate mood and affect; insight and judgment normal. Data Data Last Documented VS Vital Signs Date Time Temp Pulse Resp B/P (MAP) Pulse Ox O2 Delivery O2 Flow Rate FiO2 05/09/17 00:43 99.5 96 18 136/61 (86) 94 05/08/17 23:30 Room Air Orders Orders Complete Blood Count With Diff (05/08/17 20:12) Comprehensive Metabolic Panel (05/08/17 20:12) Lipase (05/08/17 20:12) Lactic Acid (05/08/17 20:12) Urinalysis - C+S If Indicated (05/08/17 20:12) Iv Access Insert/Monitor (05/08/17 20:12) Ecg Monitoring (05/08/17 20:12) Oximetry (05/08/17 20:12) Sodium Chloride 0.9% Flush (Ns Flush) (05/08/17 20:15) Chest, Single Ap (05/08/17 ) Cath For Specimen (05/08/17 20:12) Asp:No Reaction To [facility]/Vanc (Asp Crit (05/08/17 23:15) Asp: Does Not Meet Inpt Admit (Asp Crit: (05/08/17 23:15) Asp: Iv Antibiotics Admit Only (Asp Crit (05/08/17 23:15) Asp: Location Of [facility] Admin (Asp Crit: (05/08/17 23:15) [facility]ancin Inj (Dal[facility] Inj) (05/08/17 23:13) Ed Discharge Order (05/08/17 23:50) Acetaminophen (Tylenol) (05/09/17 00:00) Labs Laboratory Tests Test 05/08/17 20:23 05/08/17 20:43 White Blood Count 17.4 TH/MM3 Red Blood Count 4.45 MIL/MM3 Hemoglobin 13.5 GM/DL Hematocrit 40.9 % Mean Corpuscular Volume 92.1 FL Mean Corpuscular Hemoglobin 30.4 PG Mean Corpuscular Hemoglobin Concent 33.0 % Red Cell Distribution Width 13.0 % Platelet Count 181 TH/MM3 Mean Platelet Volume 8.5 FL Neutrophils (%) (Auto) 86.2 % Lymphocytes (%) (Auto) 6.1 % Monocytes (%) (Auto) 4.1 % Eosinophils (%) (Auto) 0.2 % Basophils (%) (Auto) 3.4 % Neutrophils # (Auto) 15.0 TH/MM3 Lymphocytes # (Auto) 1.1 TH/MM3 Monocytes # (Auto) 0.7 TH/MM3 Eosinophils # (Auto) 0.0 TH/MM3 Basophils # (Auto) 0.6 TH/MM3 CBC Comment DIFF FINAL Differential Comment Blood Urea Nitrogen 24 MG/DL Creatinine 0.80 MG/DL Random Glucose 123 MG/DL Total Protein 7.9 GM/DL Albumin 3.2 GM/DL Calcium Level 8.9 MG/DL Alkaline Phosphatase 84 U/L Aspartate Amino Transf (AST/SGOT) 16 U/L Alanine Aminotransferase (ALT/SGPT) 19 U/L Total Bilirubin 0.4 MG/DL Sodium Level 139 MEQ/L Potassium Level 3.7 MEQ/L Chloride Level 104 MEQ/L Carbon Dioxide Level 28.7 MEQ/L Anion Gap 6 MEQ/L Estimat Glomerular Filtration Rate 68 ML/MIN Lactic Acid Level 1.5 mmol/L Lipase 70 U/L Urine Color YELLOW Urine Turbidity CLEAR Urine pH 6.5 Urine Specific [place] 1.020 Urine Protein TRACE mg/dL Urine Glucose (UA) NEG mg/dL Urine Ketones NEG mg/dL Urine Occult Blood NEG Urine Nitrite NEG Urine Bilirubin NEG Urine Leukocyte Esterase NEG Urine RBC 0-3 /hpf Urine Squamous Epithelial Cells 0-5 /hpf Microscopic Urinalysis Comment CATH-CULT NOT IND MDM Medical Decision Making Medical Screen Exam Complete: Yes Emergency Medical Condition: Yes Differential Diagnosis Cellulitis, pna, UTI, sepsis Narrative Course Patient roomed in ED, she appears non-toxic. No other source of fever identified. She is just shy of sepsis. She is a candidate for dal[facility] versus inpatient admission. This was discussed with her son and he requests it be discussed with Dr. Sanches. Discussed with Dr. Sanches who thinks that dalvance sounds like a reasonable option. So ordered. DIscussed return to ED criteria. Discussed symptomatic management at home. SHe is stable for discharge. Diagnosis Primary Impression: Cellulitis Qualified Codes: L03.116 - Cellulitis of left lower limb Patient Instructions: Fever in Adults (GEN), General Instructions Additional Instructions: Patient given [facility] in the emergency department, is still having fevers 48 hours from now which suggests return to the emergency department for an additional evaluation. Any other concerning signs symptoms she is always welcome to return. Disposition: 01 DISCHARGE HOME Condition: Stable Colton Vanegas MD May 08, 2017 20:54
[2017-05-08 21:02] LABS: URINE COLOR YELLOW (YELLW/STRAW)
[2017-05-08 21:04] LABS: COMMENT (UR) CATH-CULT NOT IND; CULTURE IF INDICATED CATH CULTURE NOT IND; RBC, URINE 0-3 /hpf (0-3); SQUAMOUS EPITHELIAL CELL URINE 0-5 /hpf (0-5)
--- NOTE | 2017-05-08 21:22 | RADRPT ---
EXAM DATE/TIME: 05/08/2017 20:29 [facility] COMPARISON: CHEST SINGLE AP, December 18, 2016, 12:04. INDICATIONS : Fever. MEDICAL HISTORY : Spinal meningitis. Dementia. Urinary retention. Depression, Acute kidney injury. SURGICAL HISTORY : Left total hip replacement ENCOUNTER: Initial ACUITY: 1 day PAIN SCORE: 3/10 LOCATION: Bilateral chest FINDINGS: A single view of the chest demonstrates the lungs to be symmetrically aerated without evidence of mas s, infiltrate or effusion. The cardiomediastinal contours are unremarkable. There are old healed lef t seventh and eighth rib fractures. CONCLUSION: No acute disease. Sharan Rincon MD on May 08, 2017 at 21:20 Board Certified Radiologist. This report was verified electronically.
[2017-05-08 21:50] VITALS: BP 144/61; PULSE 93; RESP 18; TEMP 100; O2SAT 94
[2017-05-08] MEDS ORDERED: DALBAVANCIN INJ 1,500 MG in DEXTROSE 5% IN WATE 500 ML INJ 500 ML IV STA ×2 (23:13)
[2017-05-08] MEDS ORDERED: ASP: No known hypersensitivity to Vanco, Telavancin, Dalbavancin OTHER ONE (23:15)
[2017-05-08] MEDS ORDERED: ASP: Location of Dalbavancin administration OTHER ONE (23:15)
[2017-05-08] MEDS ORDERED: ASP: Does not meet inpatient admission criteria OTHER ONE (23:15)
[2017-05-08] MEDS ORDERED: ASP: Only reason for admit - IV antibiotics OTHER ONE (23:15)
[2017-05-08 23:30] VITALS: BP 135/60; PULSE 94; RESP 18; O2SAT 94
[2017-05-09] MEDS ORDERED: ACETAMINOPHEN 325 MG TAB PO ONE
[2017-05-09 00:43] VITALS: BP 136/61; TEMP 99.5
== END 2017-05-09 01:20 | disposition home or self-care (01) ==
LOC: PHED 19:30
DX: L03.116 Cellulitis of left lower limb (principal); I48.91 Unspecified atrial fibrillation; F03.90 Unspecified dementia, unspecified severity, without behavioral disturbance, psychotic disturbance, mood disturbance, and anxiety; I10 Essential (primary) hypertension; Z79.01 Long term (current) use of anticoagulants
CPT/HCPCS: 71010; 80053; 81001; 83605; 83690; 85025; 96365; 99284; J0875; J7060; P9612